=== PATIENT | male | born 1955 | race Hispanic/Latino ===

== ENCOUNTER 2024-08-11 23:56 | Inpatient (IN) | payer MEDICARE, OTHER, SELFPAY ==
--- NOTE | ~2024-08-11 | MR_ITS ---
EXAMINATION: MR brain/brain stem wo con DATE: 08/14/2024 09:00 INDICATION: Ischemic stroke TECHNIQUE: Magnetic resonance imaging (MRI) of the brain and brainstem was performed without intraven ous contrast. Sequences included sagittal and axial T1-weighted SE, axial diffusion-weighted FS SE, a xial 3D SWAN, axial T2-weighted FLAIR, and axial T2-weighted FSE. Postcontrast axial and coronal T1-w eighted SE was obtained. Apparent diffusion coefficient (ADC) maps were created. COMPARISON: Head CT and CT angiogram dated 08/13/2024 FINDINGS: Moderate-sized region of restricted diffusion and increased T2 signal or spine to the region of cytot oxic edema on prior CT consistent with acute infarct. Additional smaller region also with restricted diffusion, increased T2 signal in satisfactory beam on prior CT in the left parietal lobe consistent with a second acute infarct. No intracranial hemorrhage or abnormal intracranial mass lesion. There a re scattered areas of nonspecific increased T2-weighted signal intensity in the cerebral white matter , predominantly involving the deep and periventricular white matter. There are no intraparenchymal si gnal abnormalities seen on the other pulse sequences. The ventricles are symmetric and normal in size . There are no abnormal extra-axial fluid collections. Flow voids are seen in the cerebral arteries o n the T2-weighted sequences consistent with their expected patency. Mild mucoperiosteal thickening th e bilateral ethmoid sinuses. Small bilateral mastoid effusions. Visualized orbits and soft tissues ar e unremarkable. IMPRESSION: 1. Acute infarcts in the left frontal and left parietal lobes. 2. Additional mild scattered nonspecific white matter T2 hyperintensity consistent with chronic small vessel ischemic disease. Reviewed, dictated and finalized at location B. CAL INSURANCE CLERK IMPRESSION: 1. Acute infarcts in the left frontal and left parietal lobes. 2. Additional mild scattered nonspecific white matter T2 hyperintensity consist ent with chronic small vessel ischemic disease.
--- NOTE | ~2024-08-11 | CT_ITS ---
EXAMINATION: CT brain wo con DATE: 08/13/2024 14:29 INDICATION: Altered mental status. TECHNIQUE: Computed tomography (CT) of the head was performed without intravenous contrast. The mA wa s adjusted according to patient size. Iterative reconstruction technique was employed. The dose-lengt h product was 605.33 mGy-cm. COMPARISON: Head CT 08/12/2024 FINDINGS: There are acute infarcts in the left frontal and parietal lobes. There are scattered areas of low attenuation in the cerebral white matter. There is no intracranial hemorrhage or abnormal mass lesion. The ventricles are normal in size. There is mild mucosal thickening in the paranasal sinuses . The mastoid air cells are normal. The orbits are normal. IMPRESSION: 1. Acute infarcts in the left frontal and parietal lobes, not visible on 08/12/2024. 2. Moderate nonspecific cerebral white matter disease, which likely represents chronic small vessel i schemic disease. Reviewed, dictated and finalized at location A. MANAGEMENT INTERNSHIP IMPRESSION: 1. Acute infarcts in the left frontal and parietal lobes, not visible on 025. 2. Moderate nonspecific cerebral white matter disease, which likely represents chronic small vessel ischemic disease.
--- NOTE | ~2024-08-11 | CT_ITS ---
Non-contrast Head CT History: Headache Technique: Axial non-contrast imaging of the brain was performed. Dose reduction technique was used on this scan by utilizing automated exposure control and iterative reconstruction technique. The dose -length product (DLP) was 756.67 mGy-cm. Findings: There is no evidence of intracranial hemorrhage, mass lesion, or acute infarct. Brain par enchyma appears normal. The ventricles and subarachnoid spaces are normal in size. The calvarium ap pears normal. The visualized paranasal sinuses and mastoid air cells are clear. Impression: No significant abnormality seen. Reviewed, dictated and finalized at location . ASS MANAGER Impression: No significant abnormality seen.
--- NOTE | ~2024-08-11 | XR_ITS ---
Portable chest x-ray Comparison: 12/26/2015 Clinical History: Chest pain Findings: Lungs are clear, without focal consolidation or pleural effusion. Cardiomediastinal silho uette is prominent. Bones and soft tissues are unremarkable. Impression: Clear lungs. Probable cardiomegaly. Reviewed, dictated and finalized at location . R PLANT ASSISTANT Impression: Clear lungs. Probable cardiomegaly.
--- NOTE | ~2024-08-11 | CT_ITS ---
EXAMINATION: CTA brain carotid DATE: 08/13/2024 16:20 INDICATION: Cerebrovascular accident. TECHNIQUE: Computed tomographic angiography (CTA) of the head was performed with 100 mL Omnipaque-350 intravenous contrast. CTA of the neck was performed with intravenous contrast. Automated exposure co ntrol and iterative reconstruction technique were employed. The dose-length product was 1242.85 mGy-c m. Maximum intensity projection and volume rendered 3D-reconstructions were created by the technologi st on a separate workstation. COMPARISON: head CT 08/13/2024 FINDINGS: HEAD CTA: There are acute infarcts in the left frontal and parietal lobes. There are scattered areas of low attenuation in the cerebral white matter. There is no intracranial hemorrhage or abnormal mass lesion. The ventricles are normal in size. There is mild mucosal thickening in the paranasal sinuses . The mastoid air cells are normal. The orbits are normal. The vertebral arteries are codominant. The re is no significant stenosis of basilar artery or the posterior cerebral arteries. There is no signi ficant stenosis of the intracranial internal carotid arteries or anterior cerebral arteries. There is total occlusion of two left M2 middle cerebral artery branches. Anterior communicating artery is nor mal. The posterior communicating arteries are normal. There is no aneurysm. NECK CTA: Cardiomegaly is noted. There are no pathologically enlarged lymph nodes. There is no signif icant stenosis of the vertebral arteries. There is plaque in the proximal internal carotid arteries. There is 0% stenosis of the proximal right internal carotid artery relative to normal distal artery l umen diameter (NASCET criteria). There is 0% stenosis of the proximal left internal carotid artery re lative to normal distal artery lumen diameter. There is severe cervical spondylosis. There is extensi ve dental disease. IMPRESSION: 1. Acute infarcts in the left frontal and parietal lobes. 2. Moderate nonspecific cerebral white matter disease, which likely represents chronic small vessel i schemic disease. 3. 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 4. 0% stenosis of the proximal internal carotid arteries relative to normal distal artery lumen diame ters (NASCET criteria). Reviewed, dictated and finalized at location A. N MILLER HELPER IMPRESSION: 1. Acute infarcts in the left frontal and parietal lobes. 2. Moderate nonspecific cerebral white matter disease, which likely represents chronic small vessel ischemic disease. 3. 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 4. 0% stenosis of the proximal internal carotid arteries relative to normal dis ruthy artery lumen diameters (NASCET criteria).
--- NOTE | ~2024-08-11 | CT_ITS ---
Clinical Indication: Chest pain, epigastric pain CT Scan of the Chest, Abdomen, and Pelvis with Contrast: Technique: Contiguous sections were acquired throughout the chest, abdomen, and pelvis after intraven ous administration of 100 cc of Omnipaque 350. Dose reduction technique was used on this scan by uti lizing automated exposure control and iterative reconstruction technique. The dose-length product (DL P) was 1906.80 mGy-cm. Findings: There is no evidence of any significant mediastinal, hilar or axillary lymphadenopathy. The mediastin al soft tissues appear normal. No aortic aneurysm or dissection. No pulmonary embolus. There is no evidence of pleural or pericardial effusion. 7 mm right middle lobe nodule present (axial image 60). 8 mm right lower lobe pulmonary nodule presen t (axial image 65). 3 mm left lower lobe pulmonary nodule present (axial image 85). The liver, spleen, pancreas, gallbladder, adrenals and kidneys are within normal limits. No evidence of aortic aneurysm. No lymphadenopathy. No bowel obstruction or bowel wall thickening. There is no evidence to suggest acute appendicitis. Urinary bladder is unremarkable. No pelvic mass seen. No ascites. Impression: No acute abnormalities seen. 7 mm and 8 mm right lung pulmonary nodules, as above. According to Fleischner Society criteria, for a low-risk patient, follow-up CT scan in 3-6 months recommended, then consider additional 18-[address] A high-risk patients, follow-up CT scans at both 3-6 months and 18-24 months are recommended. No significant abnormality in the abdomen or pelvis. Reviewed, dictated and finalized at [facility]. NG CUTTER Impression: No acute abnormalities seen. 7 mm and 8 mm right lung pulmonary nodules, as above. According to Fleischner S ociety criteria, for a low-risk patient, follow-up CT scan in 3-6 months recomm ended, then consider additional 18-[address] A high-risk patients, follow-up CT scans at both 3-6 months and 18-24 months are recommended. No significant abnormality in the abdomen or pelvis.
[2024-08-12] VITALS (54 sets, daily range): BP systolic 129–159; BP diastolic 74–125; PULSE 46–89; RESP 10–23; TEMP 36.4–36.7; O2SAT 79–100; BMI 31.2
--- NOTE | 2024-08-12 00:09 | ECG_ITS ---
Test Date: 2024-08-12 01:44:49 Measurements Intervals [place] Rate: 73 P: 62 OK: 189 QRS: 4 QRSD: 134 T: 61 QT: 426 QTc: 472 Interpretive Statements SINUS RHYTHM WITH FREQUENT VENTRICULAR PREMATURE COMPLEXES INTRAVENTRICULAR CONDUCTION DELAY [130+ ms QRS DURATION] LEFT VENTRICULAR HYPERTROPHY AND ST-T CHANGE [VOLTAGE CRITERIA PLUS ST/T ABNORMALITY] Compared to ECG 08/12/2024 00:05:32 No significant changes Electronically Signed On 08-12-2024 22:11:23 POWERHOUSE MECHANIC by Ariel Lagunas M.D.
--- NOTE | 2024-08-12 00:26 | ED.CHESTPAIN ---
HPI - Chest Pain General Chief Complaint: Chest Pain Stated Complaint: CP RADIATING TO LEFT NECK Time Seen by Provider: 08/12/24 00:08 History of Present Illness HPI narrative: 69-year-old male with a past medical history including congestive heart failure with reduced ejection fraction, hypertension, previous stroke, seizure disorder. He has also had history of CO with coronary artery disease on multiple cardiac catheterizations but no history of stent or balloon angioplasty to his knowledge. Patient states his last catheterization was in February after had a syncopal episode with concern for MRI. Was found to have 70% lad occlusion and several other diseased vessels but no interventions were conducted. He is on aspirin, Plavix, nitro. Patient presents to the emergency room today with sudden onset chest pain for epigastric pain and pain radiating towards his neck that he describes as a throbbing pulsatile sensation. Was sudden in onset without any exertion. No associated dyspnea. No nausea or vomiting, no diaphoresis, lower abdominal pain or neurological complaints. Denies any trauma or injuries. Patient was incarcerated in prison while his symptoms started. Denies any substance use but is an active smoker. Related Data Allergies Allergy/AdvReac Type Severity Reaction Status Date / Time latex Allergy Mild Hives Verified 08/12/24 05:32 Review of Systems Review of Systems: As reviewed above in HPI [facility] Past Medical History Medical History (Updated 08/12/24 @ 08:16 by Chevy Leger MD) Heart failure with reduced ejection fraction Chronic obstructive pulmonary disease Hypertension Tobacco dependence Cerebrovascular accident Coronary artery disease Family History Family History (Updated 08/12/24 @ 05:42 by Sherice Castellanos RN) Father Acute myocardial infarction Social History Social History Smoking packs per day: 0.25 Smoking cigarettes per day: 5.0 Years smoked: 40 Smoking pack-years: 10.00 Smoking status: Current every day smoker Tobacco type: cigarettes Alcohol intake: never Substance use: never Do You Feel Safe in your Home?: Yes Lack of Transportation: No Lack of Food: Never True Current Housing: I Have Housing Concerned About Future Housing: No Difficulty Paying Gas/Electric Bills: No Difficulty Paying for Meds: No Currently Unemployed: No Education: High School Diploma/GED Difficulty w/ Childcare or Family Care: No Spiritual care concerns: No Exam Narrative: GENERAL: [Well-appearing, well-nourished, and in no acute distress.] HEAD: [Normocephalic, atraumatic.] EYES: [PERRLA and EOMI.] ENT: Nares clear, no rhinorrhea or epistaxis. Mucous membranes moist. NECK: Supple. CHEST: [Clear to auscultation. No respiratory distress.] HEART: [Regular rate and rhythm]. No murmur heard. [Normal peripheral pulses.] ABDOMEN: [Soft, nondistended], [nontender], [No rigidity or guarding] EXTREMITIES: Normal range of motion. [No edema.] SKIN: Warm, dry, no rash. NEURO: [No focal deficits]. Alert and oriented [x3.] PSYCH: [Normal mood and affect.] Course Vital Signs Vital signs: Vital Signs Pulse Rate 82 08/12/24 00:02 Respiratory Rate 14 08/12/24 00:02 Blood Pressure 143/109 H 08/12/24 00:02 Pulse Oximetry 97 08/12/24 00:02 Oxygen Delivery Room Air 08/12/24 00:02 Temperature 36.7 C 08/12/24 06:07 Pulse Rate 64 08/12/24 06:07 Respiratory Rate 18 08/12/24 06:07 Blood Pressure 139/103 H 08/12/24 06:07 Pulse Oximetry 100 08/12/24 06:07 Oxygen Delivery Room Air 08/12/24 05:40 MDM - Chest Pain MDM Narrative Medical decision making narrative: 69-year-old pleasant male with complex history including CHF with reduced ejection fraction, hypertension, stroke, seizure disorder, previous CO with 70% lad occlusion on recent cardiac catheterization in February of last year. Presents today with sudden onset chest pain, epigastric pain and pain radiating towards his neck that he describes as a throbbing pulsatile sensation as sharp in quality. Denies any injuries or any associated neurological symptoms. Denies any shortness a breath. No tachypnea, hypoxia, tachycardia. He was noted to be profoundly hypertensive 3 EMS in the 200 range systolic and received 2 doses of sublingual nitro and aspirin. Presently he has better blood pressure with a 154/105. Strong symmetric pulses in all extremities. No increased work of breathing or asymmetric breath sounds. Consideration including at this time include unstable angina, ACS, acute aortic syndrome. Less likely pneumothorax or gastritis or other intra-abdominal process. Given his age and risk factors cardiac workup was ordered including serial troponins, D-dimer and EKG. CT angiography of his chest abdomen pelvis was obtained. He was given morphine for analgesia and evaluated on a panel monitor. I went and re-evaluated the patient who states he feels acutely worse previous stealing the morphine. He started feeling tearful, developing vague paresthesias in his right leg near the big toe and behind both sides of his head and neck. He was evaluated and had no heart neurological findings such as weakness or anesthesia of the extremities. No ataxia, answering all questions appropriately. He had subjective burning quality pins and needles type pain in his big toe on the right side and behind both sides was head and neck. CT of the head was ordered prior to his angiography study. Patient felt better after morphine and Zofran. Patient's laboratory studies show a elevated troponin with revising delta troponin. EKG without any acute ischemic evidence but there is significant amounts of ectopy. There is some intraventricular conduction delay but no ST segment elevations or depressions. Patient's blood pressure slightly hypertensive but not severe range. Repeat vital signs are reassuring. Given his NSTEMI, rising troponin and chest pain that is improving with morphine I believe he would benefit from admission to the hospital for Cardiology evaluation on inpatient basis. He was started on heparin drip at this time an echocardiogram will be ordered. Serial EKGs and troponins will be obtained and patient will go to the intermediate care unit. Spoke to the hospitalist currently being covered by the midlevel provider Lucy. She agreed to accept the patient to the hospital to the intermediate care unit at this time with Cardiology on consult. Patient comfortable with plan of care for admission. Medical Records Data Attestation: I reviewed the patient's medical records. Lab Data Attestation: I reviewed the patient's lab results. 08/12/24 06:28 08/12/24 06:28 Labs: Lab Results 08/12/24 08/12/24 08/12/24 Range/Units 00:16 01:25 03:08 WBC 11.7 H (4.5-10.0) K/mm3 RBC 4.98 (4.6-6.20) M/mm3 Hgb 14.1 (14.0-18.0) g/dL Hct 42.1 (42.0-52.0) % MCV 84.5 (80-100) fl MCH 28.3 (26-34) pg MCHC 33.5 (32-36) g/dl RDW 14.3 (11.5-14.5) % Plt Count 241 (150-375) k/mm3 MPV 12.0 H (7.4-10.4) fl Immature Gran % (Auto) 0.3 (0-0.5) % Neut % (Auto) 78.0 H (45.5-73.1) % Lymph % (Auto) 13.1 L (18.3-44.2) % [place] % (Auto) 5.8 (2.6-8.5) % Eos % (Auto) 1.7 (0-4.4) % Baso % (Auto) 1.1 (0.2-1.2) % Lymph # (Auto) 1.53 (0.9-3.2) K/mm3 [place] # (Auto) 0.7 H (0.1-0.6) K/mm3 Eos # (Auto) 0.2 (0-0.3) K/mm3 Baso # (Auto) 0.1 (0.0-0.1) K/mm3 Abs Immat Gran (auto) 0.04 H (0.00-0.031) K/mm3 Absolute Neuts (auto) 9.1 H (1.3-6.7) K/mm3 Absolute Nucleated RBC 0.000 (0.0-0.012) K/mm3 Nucleated RBC % 0.0 (0.0-0.2) % PT 15.1 H (11.1-14.7) Seconds INR 1.2 APTT 33.1 (22.3-36.8) Seconds D-Dimer 0.67 H (<0.48) ug/mL Sodium 141 (137-145) mmol/L Potassium 3.5 (3.4-5.0) mmol/L Chloride 105 (98-107) mmol/L Carbon Dioxide 26 (22-30) mmol/L Anion Gap 10 (4-12) mmol/L BUN 15 (9-20) mg/dL Creatinine 0.98 (0.7-1.3) mg/dL Estim Creat Clear Calc 81 ml/min Estimated GFR > 60 (59 - ) Glucose 122 H (65-110) mg/dL Calcium 8.4 (8.4-10.2) mg/dL Total Bilirubin 0.8 (0.2-1.3) mg/dL AST 26 (17-59) U/L ALT 16 (6-50) U/L Alkaline Phosphatase 123 (38-126) U/L Troponin I 0.055 H* 0.069 H* D (0.000-0.034) ng/mL NT-Pro-B Natriuret Pep 3570 H (19.9-100) pg/mL Total Protein 7.0 (6.3-8.2) g/dL Albumin 4.1 (3.5-5.1) g/dL Lipase 32 (23-300) U/L Urine Opiates Screen Positive A (Negative) Urine Methadone Screen Negative (Negative) Ur Barbiturates Screen Negative (Negative) Ur Phencyclidine Scrn Negative (Negative) Ur Amphetamine Screen Negative (Negative) U Benzodiazepines Scrn Negative (Negative) Urine Cocaine Screen Negative (Negative) U Cannabinoids Screen Negative (Negative) Imaging Data Attestation: I personally reviewed and interpreted this imaging study as follows: Radiologist's impression: [facility]: CT of the head shows no acute intracranial abnormalities. CT of the chest and abdomen pelvis shows no pulmonary embolism, no aortic dissection or aneurysm, no acute pulmonary parenchymal abnormalities. No acute abnormality in the abdomen or pelvis Critical Care Time Critical Care Time Critical Care Time: Yes Total Critical Care Time: 35 Discharge Plan Discharge Clinical Impression: Acute non-ST elevation myocardial infarction (NSTEMI), Coronary artery disease, Chest pain Patient Disposition: Still a Patient Condition: Stable
[2024-08-12 00:31] LABS: Basophils Absolute Auto 0.1 K/mm3 (0.0-0.1); Basophils Percent Auto 1.1 % (0.2-1.2); Eosinophils Absolute Auto 0.2 K/mm3 (0-0.3); Eosinophils Percent Auto 1.7 % (0-4.4); Hematocrit 42.1 % (42.0-52.0); Hemoglobin 14.1 g/dL (14.0-18.0); Immature Granulocyte Absolute 0.04 K/mm3 (0.00-0.031); Immature Granulocyte Percent A 0.3 % (0-0.5); Lymphocytes Absolute Auto 1.53 K/mm3 (0.9-3.2); Lymphocytes Percent Auto 13.1 % (18.3-44.2); Mean Corpuscular HGB Conc 33.5 g/dl (32-36); Mean Corpuscular Hemoglobin 28.3 pg (26-34); Mean Corpuscular Volume 84.5 fl (80-100); Monocytes Absolute Auto 0.7 K/mm3 (0.1-0.6); Monocytes Percent Auto 5.8 % (2.6-8.5); Neutrophils Absolute Auto 9.1 K/mm3 (1.3-6.7); Platelet Count Result 241 k/mm3 (150-375); Red Blood Count 4.98 M/mm3 (4.6-6.20); Red Cell Distribution Width 14.3 % (11.5-14.5); White Blood Count 11.7 K/mm3 (4.5-10.0)
[2024-08-12 00:43] LABS: INR 1.2; Prothrombin Time 15.1 Seconds (11.1-14.7)
[2024-08-12 00:44] LABS: Partial Thromboplastin Time 33.1 Seconds (22.3-36.8)
[2024-08-12 00:46] LABS: Alanine Aminotransferase 16 U/L (6-50); Albumin Level 4.1 g/dL (3.5-5.1); Alkaline Phosphatase 123 U/L (38-126); Anion Gap 10 mmol/L (4-12); Aspartate Amino Transferase 26 U/L (17-59); Bilirubin,Total 0.8 mg/dL (0.2-1.3); Blood Urea Nitrogen 15 mg/dL (9-20); Calcium 8.4 mg/dL (8.4-10.2); Carbon Dioxide 26 mmol/L (22-30); Chloride 105 mmol/L (98-107); Estimated CRCL calculation 81 ml/min; Estimated Glomerular Filt Rate > 60; Glucose 122 mg/dL (65-110); Lipase 32 U/L (23-300); Potassium 3.5 mmol/L (3.4-5.0); Sodium 141 mmol/L (137-145)
[2024-08-12 00:47] LABS: D Dimer 0.67 ug/mL (<0.48)
[2024-08-12 01:01] LABS: NT Pro B Type Natriuretic Pept 3570 pg/mL (19.9-100); Troponin I 0.055 ng/mL (0.000-0.034)
--- NOTE | 2024-08-12 01:42 | ECG_ITS ---
Test Date: 2024-08-12 00:05:32 Measurements Intervals [place] Rate: 91 P: 55 CO: 179 QRS: 6 QRSD: 133 T: 63 QT: 408 QTc: 504 Interpretive Statements SINUS RHYTHM WITH FREQUENT VENTRICULAR PREMATURE COMPLEXES INTRAVENTRICULAR CONDUCTION DELAY [130+ ms QRS DURATION] LEFT VENTRICULAR HYPERTROPHY AND ST-T CHANGE [VOLTAGE CRITERIA PLUS ST/T ABNORMALITY] No previous ECG available for comparison Electronically Signed On 08-12-2024 22:11:42 GRAPHITE DISK ASSEMBLER by Ariel Lagunas M.D.
[2024-08-12 01:52] LABS: Amphetamine Screen Urine Negative (Negative); Barbiturate Screen Urine Negative (Negative); Benzodiazepines Screen Urine Negative (Negative); Cannabinoid Screen Urine Negative (Negative); Cocaine Screen Urine Negative (Negative); Methadone Screen Urine Negative (Negative); Opiate Screen Urine Positive (Negative); Phencyclidine Screen Urine Negative (Negative)
[2024-08-12] MEDS: ONDANSETRON INJ 4 MG/2 ML VIAL IV PUSH (03:02)
[2024-08-12] MEDS: MORPHINE SULFATE (*CRX) 4 MG/ML INJ 6 MG IV PUSH (03:05)
[2024-08-12 03:44] LABS: Troponin I 0.069 ng/mL (0.000-0.034)
[2024-08-12] MEDS: HEPARIN SOD/D5W 100 UNITS/ML 25,000 UNITS/250 ML BAG 14 UNITS IV CONT (04:45)
[2024-08-12] MEDS: HEPARIN SODIUM 5,000 UNITS/ML VIAL 4000 UNITS IV PUSH (04:51)
--- NOTE | 2024-08-12 05:20 | P.HP_ITS ---
H&P: HPI History of Present Illness Date/Time: 08/12/24 05:20 Chief Complaint: Chest pain and shortness of breath. Narrative: This is a 69-year-old male smoker with history of stroke, seizures, coronary artery disease, hypertension, heart failure with reduced ejection fraction, and chronic obstructive pulmonary disease presented to the emergency department via EMS for evaluation of chest pain and shortness of breath. The patient provides the following history. He is a patient at the [facility] and has had several cardiac catheterizations for myocardial infarctions though no history of intervention. His most recent catheterization was in February 2024 following a syncopal episode and he was reportedly found to have 70% LAD occlusion and several other disease vessels which were treated medically. He has been doing well since that time and is on dual anti-platelet therapy. Last evening he was out with his when he was pulled over by the police for a moving violation. They discovered a 23-year-old warrant and took him to prison where they were to keep him until Tuesday. Not long prior to arrival he was lying in bed when he developed sudden onset of left anterior chest pain which he describes as a severe charley horse associated with shortness of breath. The pain radiated to the left neck and jaw. It is not reproducible on palpation of the chest wall and he denies GI symptoms. He was administered 2 sprays of nitroglycerin and aspirin 324 mg in route with some improvement. He denies syncope, near syncope, cold and flu symptoms, pleuritic pain, paroxysmal nocturnal dyspnea, edema, calf pain, nausea, v omiting, and sweats. In the ED: Blood pressure was 143/109 on arrival. Labs were significant for WBC count of 11.7, D-dimer 0.67, glucose 122, troponin 0.055, proBNP 3570. CT of the chest, abdomen, and pelvis was without acute findings but did show 7 mm and 8 mm right lung pulmonary nodules. He was started on a heparin drip and is being admitted in this setting for close monitoring and Cardiology consultation. Review of Systems Review of Systems: 12 systems were reviewed. The patient re ports a 70 lb weight loss over the past 1 year which was unintentional. He gets night sweats. 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 [facility] Past Medical History Medical History (Updated 08/12/24 @ 19:44 by Lucy Jacobs PA-C) Heart failure with reduced ejection fraction Chronic obstructive pulmonary disease Hypertension Tobacco dependence Cerebrovascular accident left sided weakness Coronary artery disease Surgical History Surgical History (Updated 08/12/24 @ 19:44 by Lucy Jacobs PA-C) History of cardiac catheterization Family History Family History Father Acute myocardial infarction Social History Social History (Updated 08/12/24 @ 19:45 by Lucy Jacobs PA-C) Social History: Surrogate medical decision maker: Thaddeus Burns, significant other. Code status: Full code. Smoking packs per day: 0.25 Smoking cigarettes per day: 5.0 Years smoked: 40 Smoking pack-years: 10.00 Smoking status: Current every day smoker Tobacco type: cigarettes Alcohol intake: never Substance use: never Do You Feel Safe in your Home?: Yes Lack of Transportation: No Lack of Food: Never True Current Housing: I Have Housing Concerned About Future Housing: No Difficulty Paying Gas/Electric Bills: No Difficulty Paying for Meds: No Currently Unemployed: No Education: High School Diploma/GED Difficulty w/ Childcare or Family Care: No Spiritual care concerns: No Meds Home Medications and Allergies Allergies Allergy/AdvReac Type Severity Reaction Status Date / Time latex Allergy Mild Hives Verified 08/12/24 05:32 Vital Signs Vital Signs - 24 hr 08/12/24 00:02 08/12/24 00:04 08/12/24 00:09 Pulse Rate 82 86 89 Respiratory Rate 14 22 H 17 Blood Pressure 143/109 H 143/109 H Pulse Oximetry 97 97 97 Oxygen Delivery Room Air 08/12/24 00:15 08/12/24 00:22 08/12/24 00:24 Pulse Rate 88 86 85 Respiratory Rate 18 19 Blood Pressure 136/101 H Pulse Oximetry 97 97 Oxygen Delivery 08/12/24 00:24 08/12/24 00:25 08/12/24 00:26 Pulse Rate 83 86 Respiratory Rate 22 H 17 Blood Pressure 154/105 H Pulse Oximetry 97 97 97 Oxygen Delivery Room Air 08/12/24 00:31 08/12/24 00:32 08/12/24 00:45 Pulse Rate 78 81 88 Respiratory Rate 16 18 20 Blood Pressure 132/100 H Pulse Oximetry 98 98 Oxygen Delivery 08/12/24 02:07 08/12/24 02:15 08/12/24 02:20 Pulse Rate 61 55 L 65 Respiratory Rate 16 16 20 Blood Pressure 145/111 H Pulse Oximetry 98 98 98 Oxygen Delivery 08/12/24 02:30 08/12/24 02:45 08/12/24 03:00 Pulse Rate 59 L 61 57 L Respiratory Rate 17 19 16 Blood Pressure Pulse Oximetry 98 96 98 Oxygen Delivery 08/12/24 03:29 08/12/24 03:38 08/12/24 03:45 Pulse Rate 53 L 54 L 63 Respiratory Rate 17 19 21 H Blood Pressure Pulse Oximetry 96 94 94 Oxygen Delivery 08/12/24 04:00 08/12/24 04:01 08/12/24 04:15 Pulse Rate 67 57 L 51 L Respiratory Rate 15 19 17 Blood Pressure 148/125 H Pulse Oximetry 92 98 96 Oxygen Delivery 08/12/24 04:30 08/12/24 04:32 Pulse Rate 73 66 Respiratory Rate 21 H 23 H Blood Pressure Pulse Oximetry 96 Oxygen Delivery Exam Narrative: General: Well-developed, nontoxic-appearing male in the semi-Flores position in bed. Weight: 101.6 kg. BMI: 31.2. HEENT: Normocephalic, atraumatic. PERRL, EOMI. Sclera anicteric. Oral mucosa moist. Oropharynx clear. Neck: Supple. Respiratory: Lungs are clear to auscultation bilaterally. Cardiovascular: Regular rate and rhythm with S1-S2. Chest: No tenderness to palpation over the chest wall. Gastrointestinal: Abdomen is soft, nontender, and nondistended with positive bowel sounds. Skin: Warm and dry. Scattered maculopapular rash which is pleuritic. Recent biopsy site over the left chest wall. Extremities: No cyanosis, clubbing, or edema. Radial and pedal pulses intact. Neurological: Alert. Cranial nerves 2-12 are grossly intact. No gross focal deficits to casual conversation. Psychiatric: Pleasant and cooperative with normal mood and affect. Judgment and insight intact. H&P: Results Labs Labs: Short CBC 08/12/24 Range/Units 00:16 WBC 11.7 H (4.5-10.0) K/mm3 Hgb 14.1 (14.0-18.0) g/dL Hct 42.1 (42.0-52.0) % Plt Count 241 (150-375) k/mm3 BMP 08/12/24 00:16 Sodium 141 Potassium 3.5 Chloride 105 Carbon Dioxide 26 BUN 15 Creatinine 0.98 Glucose 122 H Calcium 8.4 Cardiac Enzymes 08/12/24 08/12/24 Range/Units 00:16 03:08 Troponin I 0.055 H* 0.069 H* D (0.000-0.034) ng/mL Liver Function 08/12/24 Range/Units 00:16 Total Bilirubin 0.8 (0.2-1.3) mg/dL AST 26 (17-59) U/L ALT 16 (6-50) U/L Alkaline Phosphatase 123 (38-126) U/L Albumin 4.1 (3.5-5.1) g/dL Impressions Chest/Abdomen/Pelvis CTA 08/12/24 06:30 Impression: No acute abnormalities seen. 7 mm and 8 mm right lung pulmonary nodules, as above. According to Fleischner Society criteria, for a low-risk patient, follow-up CT scan in 3-6 months recommended, then consider additional 18-[address] A high-risk patients, follow-up CT scans at both 3-6 months and 18-24 months are recommended. No significant abnormality in the abdomen or pelvis. Head CT 08/12/24 06:43 Impression: No significant abnormality seen. Assessment and Plan Assessment and plan (1) Chest pain: Code(s): R07.9 - Chest pain, unspecified Status: Acute (2) Elevated troponin: Code(s): R79.89 - Other specified abnormal findings of blood chemistry Status: Acute (3) Pulmonary nodule: Code(s): R91.1 - Solitary pulmonary nodule Status: Acute (4) Rash: Code(s): R21 - Rash and other nonspecific skin eruption Status: Acute Plan The patient presented to the emergency department for evaluation of chest pain and shortness of breath as detailed in HPI. Labs, imaging, EKG, and all reports were personally reviewed. Somewhat atypical for cardiac pain however is troponins are elevated and they will be trended to peak. Given his known coronary artery disease, he was started on a heparin drip and will be NPO for possible cardiac catheterization. Records requested from the [facility] for review. Cardiology has been consulted and their input is appreciated. Regarding the pulmonary nodule seen on imaging, this will need close follow-up at the [facility]. vital signs were reviewed and they are stable. His home medications will be reviewed and resumed as appropriate. Findings and treatment plan were discussed with the patient. Questions were solicited and answered to satisfaction. The patient's medical management will be taken over by the hospitalist team in a.m. Quality VTE Prophylaxis VTE prophylaxis: pharmacologic ordered (on heparin drip) Hospitalist [facility] Advance Care Plan I have confirmed that the patient's Advanced Care Plan is present, code status is documented, or surrogate decision maker is listed in patient medical record.: Yes Medication Reconciliation I have utilized all available resources to obtain, update and review the patients current medications (includes all prescriptions, OTC, herbals, cannabis, and nutritional supplements).: Yes
--- NOTE | 2024-08-12 05:29 | ADMGEN ---
This patient, Isaias Qureshi Jr., was admitted to IMU Room 231-01. Patient/family oriented to hospital policies and general routines including ID bracelet, bed and alarms, visiting hours, pain management, procedures, bathroom and other care routines, personal items, smoking policy, room service/diet, and visiting hours. Report received from Nafisa CARRERA Information on how to activate the Rapid Response Team has been discussed. Patient/Family are encouraged to report perceived risks to care and to ask questions if they do not understand what they are told or what they should do.
--- NOTE | 2024-08-12 06:27 | PC.NURSE ---
Pt states he does not know all medications or dosages. Attempted to call [facility] to obtain [facility] records[facility]. Patient states will bring medication list up this morning.
[2024-08-12 06:34] LABS: Basophils Absolute Auto 0.1 K/mm3 (0.0-0.1); Basophils Percent Auto 1.4 % (0.2-1.2); Eosinophils Absolute Auto 0.4 K/mm3 (0-0.3); Eosinophils Percent Auto 4.5 % (0-4.4); Hematocrit 43.4 % (42.0-52.0); Hemoglobin 13.9 g/dL (14.0-18.0); Immature Granulocyte Absolute 0.02 K/mm3 (0.00-0.031); Immature Granulocyte Percent A 0.2 % (0-0.5); Lymphocytes Absolute Auto 1.91 K/mm3 (0.9-3.2); Lymphocytes Percent Auto 22.4 % (18.3-44.2); Mean Corpuscular Hemoglobin 28.1 pg (26-34); Mean Corpuscular Volume 87.7 fl (80-100); Mean Platelet Volume 11.7 fl (7.4-10.4); Monocytes Absolute Auto 0.6 K/mm3 (0.1-0.6); Monocytes Percent Auto 7.4 % (2.6-8.5); Neutrophils Absolute Auto 5.5 K/mm3 (1.3-6.7); Neutrophils Percent Auto 64.1 % (45.5-73.1); Platelet Count Result 209 k/mm3 (150-375); Red Blood Count 4.95 M/mm3 (4.6-6.20); Red Cell Distribution Width 14.5 % (11.5-14.5); White Blood Count 8.5 K/mm3 (4.5-10.0)
[2024-08-12 06:44] LABS: Alanine Aminotransferase 15 U/L (6-50); Alkaline Phosphatase 104 U/L (38-126); Anion Gap 6 mmol/L (4-12); Aspartate Amino Transferase 27 U/L (17-59); Bilirubin,Total 1.1 mg/dL (0.2-1.3); Blood Urea Nitrogen 16 mg/dL (9-20); Calcium 8.6 mg/dL (8.4-10.2); Carbon Dioxide 31 mmol/L (22-30); Chloride 104 mmol/L (98-107); Estimated CRCL calculation 74 ml/min; Estimated Glomerular Filt Rate > 60; Glucose 122 mg/dL (65-110); Magnesium 2.2 mg/dL (1.6-2.3); Potassium 4.6 mmol/L (3.4-5.0); Sodium 141 mmol/L (137-145)
[2024-08-12 06:51] LABS: INR 1.2; Prothrombin Time 15.8 Seconds (11.1-14.7)
[2024-08-12 06:52] LABS: Partial Thromboplastin Time 56.2 Seconds (22.3-36.8)
[2024-08-12] MEDS: diphenhydrAMINE HCl INJ 50 MG/ML VIAL 25 MG IV PUSH (07:05)
[2024-08-12] MEDS: MORPHINE SULFATE (*CRX) 2 MG/ML INJ 4 MG IV PUSH (07:06)
[2024-08-12 07:14] LABS: Troponin I 0.087 ng/mL (0.000-0.034)
--- NOTE | 2024-08-12 08:11 | ECG_ITS ---
Test Date: 2024-08-12 08:36:12 Measurements Intervals [place] Rate: 52 P: 56 [place]: 209 QRS: 44 QRSD: 133 T: 146 QT: 507 QTc: 475 Interpretive Statements SINUS BRADYCARDIA WITH FREQUENT VENTRICULAR PREMATURE COMPLEXES INTRAVENTRICULAR CONDUCTION DELAY [130+ ms QRS DURATION] LEFT VENTRICULAR HYPERTROPHY anterior ischemia Compared to ECG 08/12/2024 01:44:49 Sinus rhythm no longer present ST (T wave) deviation still present Electronically Signed On 08-12-2024 22:07:48 [employer] by Ariel Lagunas M.D.
[2024-08-12] MEDS: NITROGLYCERIN SL 0.4 MG TABLET SUBLINGUAL ×3 (08:38→12:32)
--- NOTE | 2024-08-12 08:46 | PC.NURSE ---
Reports 7/10 chest pain that feels achy to left side with intermittent bursts of sharp radiating pain to left neck and left arm and SOB. Skin warm and dry. BP 141/89, O298% RA. PRN EKG ordered. Reviewed information with Dr. Brennan. New orders for SL nitro. Nitro given. Reports pain is currently 4/10.
--- NOTE | 2024-08-12 08:49 | PC.NURSE ---
Refuses second dose of SL nitro. Pt is resting in bed snoring.
--- NOTE | 2024-08-12 08:56 | P.PNIM_ITS ---
Progress Note: A&P Assessment and Plan (1) Chest pain: Code(s): R07.9 - Chest pain, unspecified Status: Acute Assessment and Plan: * Somewhat atypical for angina however he has known coronary disease and elevate d troponin and T-wave inversions. * Continue heparin, aspirin, Plavix. * Resume home medications when list is available later this morning. * Cardiology consultation pending. * Records from [facility] pending. (2) Elevated troponin: Code(s): R79.89 - Other specified abnormal findings of blood chemistry Status: Acute Assessment and Plan: * Troponin pattern not typical for acute coronary syndrome. * May be related to underlying congestive heart failure. * Repeat level this AM. (3) Heart failure with reduced ejection fraction: Code(s): I50.20 - Unspecified systolic (congestive) heart failure Status: Acute Assessment and Plan: * Clinically euvolemic. (4) Chronic obstructive pulmonary disease: Code(s): J44.9 - Chronic obstructive pulmonary disease, unspecified Status: Acute Assessment and Plan: * Clinically stable (5) Pulmonary nodule: Code(s): R91.1 - Solitary pulmonary nodule Status: Acute Assessment and Plan: * Will need ongoing outpatient follow-up with the [facility]. (6) Rash: Code(s): R21 - Rash and other nonspecific skin eruption Status: Acute Assessment and Plan: * Chronic. Biopsy results pending. * Benadryl no help earlier this morning. * Trial Ativan 0.5 mg x 1 dose. (7) Obstructive sleep apnea of adult: Code(s): G47.33 - Obstructive sleep apnea (adult) (pediatric) Status: Acute Assessment and Plan: * AutoPAP while sleeping until family can bring in home machine. Subjective Date/time seen: 08/12/24 08:56 Interval history: 69-year-old gentleman with known coronary artery disease has received all of his per recent treatment at the [facility] in [place]. He usually has chest pain about once per month it is always relieved by nitroglycerin. His last episode was for 6 weeks ago. Last night however he had sudden onset of cramping sensation in the mid to left chest with radiation to left neck and associated clamminess, mild nausea, and shortness of breath. He said it is similar to his usual chest pain but it was more sudden and surprising. The severity was mild to moderate. Waxed and waned. A little better with nitroglycerin. A little better with morphine. No shortness of breath or sweats at present. Still with mild chest discomfort. Complains of urinary dribbling. Complains of chronic rash for 9 months for which he has had a skin biopsy on the left chest wall. Rash itches intermittently bed and turns red and moves around. Appetite has been good. Ate a good breakfast this morning. Wears a CPAP at home but does not know his settings. Does not know his medication doses edge although he remembers many of the names including metoprolol isosorbide furosemide receive a statin aspirin and Plavix. His is to bring in his medication list around 11:00 AM. Exam Narrative: GENERAL: Alert. NAD. Anxious. SKIN: Excoriation left forearm. Brown macular changes left inframammary chest wall with about 1/2 cm punch biopsy lesion that is covered with a Band-Aid. HEENT: PERRL, sclerae nonicteric, pharyngeal mucosa pink and intact NECK: No JVD, adenopathy, or thyromegaly CHEST: Clear to auscultation. Normal effort. HEART: NL S1/S2, regular, no murmur ABDOMEN: BS+, soft, nontender, no mass, no bruits EXTREMITIES: No cyanosis, edema, or clubbing NEUROLOGIC: CN intact and symmetric to inspection. MUSCULOSKELETAL: Tone and strength symmetric. PSYCH: Alert. Oriented to person, place, and time. Objective Data Vital Signs Vital Signs: Vital Signs - 24 hr 08/12/24 00:02 08/12/24 00:04 08/12/24 00:09 Temperature Pulse Rate 82 86 89 Respiratory Rate 14 22 H 17 Blood Pressure 143/109 H 143/109 H Pulse Oximetry 97 97 97 Oxygen Delivery Room Air 08/12/24 00:15 08/12/24 00:22 08/12/24 00:24 Temperature Pulse Rate 88 86 85 Respiratory Rate 18 19 Blood Pressure 136/101 H Pulse Oximetry 97 97 Oxygen Delivery 08/12/24 00:24 08/12/24 00:25 08/12/24 00:26 Temperature Pulse Rate 83 86 Respiratory Rate 22 H 17 Blood Pressure 154/105 H Pulse Oximetry 97 97 97 Oxygen Delivery Room Air 08/12/24 00:31 08/12/24 00:32 08/12/24 00:45 Temperature Pulse Rate 78 81 88 Respiratory Rate 16 18 20 Blood Pressure 132/100 H Pulse Oximetry 98 98 Oxygen Delivery 08/12/24 02:07 08/12/24 02:15 08/12/24 02:20 Temperature Pulse Rate 61 55 L 65 Respiratory Rate 16 16 20 Blood Pressure 145/111 H Pulse Oximetry 98 98 98 Oxygen Delivery 08/12/24 02:30 08/12/24 02:45 08/12/24 03:00 Temperature Pulse Rate 59 L 61 57 L Respiratory Rate 17 19 16 Blood Pressure Pulse Oximetry 98 96 98 Oxygen Delivery 08/12/24 03:29 08/12/24 03:38 08/12/24 03:45 Temperature Pulse Rate 53 L 54 L 63 Respiratory Rate 17 19 21 H Blood Pressure Pulse Oximetry 96 94 94 Oxygen Delivery 08/12/24 04:00 08/12/24 04:01 08/12/24 04:15 Temperature Pulse Rate 67 57 L 51 L Respiratory Rate 15 19 17 Blood Pressure 148/125 H Pulse Oximetry 92 98 96 Oxygen Delivery 08/12/24 04:30 08/12/24 04:32 08/12/24 04:33 Temperature Pulse Rate 73 66 71 Respiratory Rate 21 H 23 H 22 H Blood Pressure Pulse Oximetry 96 94 Oxygen Delivery 08/12/24 04:45 08/12/24 05:00 08/12/24 05:01 Temperature Pulse Rate 55 L 66 58 L Respiratory Rate 16 14 16 Blood Pressure 153/83 H Pulse Oximetry 96 96 Oxygen Delivery 08/12/24 05:30 08/12/24 05:40 08/12/24 06:00 Temperature Pulse Rate 58 L 58 L Respiratory Rate 16 Blood Pressure 153/83 H Pulse Oximetry 96 Oxygen Delivery Room Air 08/12/24 06:07 08/12/24 08:00 Temperature 98.0 F 97.7 F Pulse Rate 64 59 L Respiratory Rate 18 16 Blood Pressure 139/103 H 141/89 H Pulse Oximetry 100 98 Oxygen Delivery Intake/Output Intake/Output: Intake & Output 08/09/24 08/10/24 08/11/24 08/12/24 23:59 23:59 23:59 23:59 Intake Total 257.5 Balance 257.5 Meds/Results Medications: Active Medications Generic Name Dose Route Start Last Admin Trade Name Freq PRN Reason Stop Dose Admin Acetaminophen 650 mg 08/12/24 06:51 Acetaminophen 325 Mg Tablet PO Q6H PRN Mild Pain (1-3) or Fever Heparin Sodium (Porcine) 4,000 units 08/12/24 03:51 Heparin Sodium 5,000 Units/Ml Vial IV PUSH PRN PRN aPTT less than 55 seconds Heparin Sodium (Porcine) 3,500 units 08/12/24 03:51 Heparin Sodium 5,000 Units/Ml Vial IV PUSH PRN PRN aPTT 55 - 70 seconds Heparin Sodium/Dextrose 25,000 units in 250 mls @ 10 mls/hr 08/12/24 04:00 08/12/24 06:00 Heparin Sodium/D5w 100 Units/Ml IV CONT 1,400 units/hr .Q24H FAWAD 14 mls/hr Titration Protocol 1,000 UNITS/HR Morphine Sulfate 4 mg 08/12/24 06:51 08/12/24 07:06 Morphine Sulfate (*Crx) 2 Mg/Ml Inj IV PUSH 4 mg Q4H PRN Administration Pain Rated 7-10 Perflutren Lipid Microsphere 0 ml 08/12/24 04:17 Perflutren Lipid Microspheres 1.5 Ml Vial Diluted To 10 Ml Total Volume IV PUSH 08/15/24 04:18 ONCE PRN adequate visualization Protocol Radiology Results: ITS Impressions Chest/Abdomen/Pelvis CTA 08/12/24 06:30 Impression: No acute abnormalities seen. 7 mm and 8 mm right lung pulmonary nodules, as above. According to Fleischner Society criteria, for a low-risk patient, follow-up CT scan in 3-6 months recommended, then consider additional 18-[address] A high-risk patients, follow-up CT scans at both 3-6 months and 18-24 months are recommended. No significant abnormality in the abdomen or pelvis. Head CT 08/12/24 06:43 Impression: No significant abnormality seen. Chest X-Ray 08/12/24 06:53 Impression: Clear lungs. Probable cardiomegaly. Labs Labs: Laboratory Results - last 24 hr 08/12/24 08/12/24 08/12/24 00:16 01: 03:08 WBC 11.7 H RBC 4.98 Hgb 14.1 Hct 42.1 MCV 84.5 MCH 28.3 MCHC 33.5 RDW 14.3 Plt Count 241 MPV 12.0 H Immature Gran % (Auto) 0.3 Neut % (Auto) 78.0 H Lymph % (Auto) 13.1 L [place] % (Auto) 5.8 Eos % (Auto) 1.7 Baso % (Auto) 1.1 Lymph # (Auto) 1.53 [place] # (Auto) 0.7 H Eos # (Auto) 0.2 Baso # (Auto) 0.1 Abs Immat Gran (auto) 0.04 H Absolute Neuts (auto) 9.1 H Absolute Nucleated RBC 0.000 Nucleated RBC % 0.0 PT 15.1 H INR 1.2 APTT 33.1 D-Dimer 0.67 H Sodium 141 Potassium 3.5 Chloride 105 Carbon Dioxide 26 Anion Gap 10 BUN 15 Creatinine 0.98 Estim Creat Clear Calc 81 Estimated GFR > 60 Glucose 122 H Calcium 8.4 Magnesium Total Bilirubin 0.8 AST 26 ALT 16 Alkaline Phosphatase 123 Troponin I 0.055 H* 0.069 H* D NT-Pro-B Natriuret Pep 3570 H Total Protein 7.0 Albumin 4.1 Lipase 32 Urine Opiates Screen Positive A Urine Methadone Screen Negative Ur Barbiturates Screen Negative Ur Phencyclidine Scrn Negative Ur Amphetamine Screen Negative U Benzodiazepines Scrn Negative Urine Cocaine Screen Negative U Cannabinoids Screen Negative 08/12/24 06:28 WBC 8.5 RBC 4.95 Hgb 13.9 L Hct 43.4 MCV 87.7 MCH 28.1 MCHC 32.0 RDW 14.5 Plt Count 209 MPV 11.7 H Immature Gran % (Auto) 0.2 Neut % (Auto) 64.1 Lymph % (Auto) 22.4 [place] % (Auto) 7.4 Eos % (Auto) 4.5 H Baso % (Auto) 1.4 H Lymph # (Auto) 1.91 [place] # (Auto) 0.6 Eos # (Auto) 0.4 H Baso # (Auto) 0.1 Abs Immat Gran (auto) 0.02 Absolute Neuts (auto) 5.5 Absolute Nucleated RBC 0.000 Nucleated RBC % 0.0 PT 15.8 H INR 1.2 APTT 56.2 H D-Dimer Sodium 141 Potassium 4.6 Chloride 104 Carbon Dioxide 31 H Anion Gap 6 BUN 16 Creatinine 1.04 Estim Creat Clear Calc 74 Estimated GFR > 60 Glucose 122 H Calcium 8.6 Magnesium 2.2 Total Bilirubin 1.1 AST 27 ALT 15 Alkaline Phosphatase 104 Troponin I 0.087 H* D NT-Pro-B Natriuret Pep Total Protein 7.0 Albumin 4.0 Lipase Urine Opiates Screen Urine Methadone Screen Ur Barbiturates Screen Ur Phencyclidine Scrn Ur Amphetamine Screen U Benzodiazepines Scrn Urine Cocaine Screen U Cannabinoids Screen Hospitalist [facility] Advance Care Plan I have confirmed that the patient's Advanced Care Plan is present, code status is documented, or surrogate decision maker is listed in patient medical record.: Yes
[2024-08-12 10:35] LABS: Troponin I 0.081 ng/mL (0.000-0.034)
[2024-08-12] MEDS: LORazepam INJ (*CRX) 2 MG/ML VIAL 0.5 MG IV PUSH (10:44)
--- NOTE | 2024-08-12 11:26 | PM.CNCAR ---
Assessment and Plan Assessment and plan (1) Acute non-ST elevation myocardial infarction (NSTEMI): Code(s): I21.4 - Non-ST elevation (NSTEMI) myocardial infarction Status: Acute (2) Coronary artery disease: Code(s): I25.10 - Atherosclerotic heart disease of m[place] coronary artery without angina pectoris Status: Acute (3) Heart failure with reduced ejection fraction: Code(s): I50.20 - Unspecified systolic (congestive) heart failure Status: Acute (4) Hypertension: Code(s): I10 - Essential (primary) hypertension Status: Acute (5) Cerebrovascular accident: Code(s): I63.9 - Cerebral infarction, unspecified Status: Acute (6) Chronic obstructive pulmonary disease: Code(s): J44.9 - Chronic obstructive pulmonary disease, unspecified Status: Acute (7) Pulmonary nodule: Code(s): R91.1 - Solitary pulmonary nodule Status: Acute (8) Tobacco dependence: Code(s): F17.200 - Nicotine dependence, unspecified, uncomplicated Status: Acute Plan Assessment: NSTEMI-rising troponin and ongoing chest pain CAD Heart failure with reduced ejection fraction-BNP is elevated but he is euvolemic by exam; there is no echo in our system Tobacco use Hypertension-not well controlled CVA Plan: Add aspirin 81 mg daily Add atorvastatin 80 mg daily Add metoprolol 25 mg b.i.d. Continue heparin drip Cardiac cath to evaluate coronaries. Risks and benefits of procedure were discussed with the patient and he is willing to proceed TTE today. No prior TTE in our system. 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 Patient reports the pain is located in the left chest and describes it as a squeezing that comes on suddenly and radiates to his left shoulder and neck before resolving in a couple of minutes. He rates it at an intensity of 5/10 and is worse at the time it starts. No diaphoresis, shortness of breath, lightheadedness, dizziness, leg swelling, recent weight gain. Troponin is elevated 0.05 and continues to increase to 0.069 and further to 0.087. BNP is 3570. EKG shows sinus rhythm with PVCs. He was started on a heparin drip and Cardiology was consulted for further management of NSTEMI. Workup: Troponin 0.055, 0.069, 0.087 BNP S: 3570 EKG: Sinus rhythm with PVCs, LVH with associated ST-T changes CT: Lung nodules Review of Systems Review of Systems: Complete review of systems was performed and negative other than those mentioned in HPI [facility] Past Medical History Medical History (Updated 08/12/24 @ 09:28 by Jonathon Brennan MD) Heart failure with reduced ejection fraction Chronic obstructive pulmonary disease Hypertension Tobacco dependence Cerebrovascular accident Coronary artery disease Family History Family History (Updated 08/12/24 @ 05:42 by Sherice Castellanos RN) Father Acute myocardial infarction Social History Social History Smoking packs per day: 0.25 Smoking cigarettes per day: 5.0 Years smoked: 40 Smoking pack-years: 10.00 Smoking status: Current every day smoker Tobacco type: cigarettes Alcohol intake: never Substance use: never Do You Feel Safe in your Home?: Yes Lack of Transportation: No Lack of Food: Never True Current Housing: I Have Housing Concerned About Future Housing: No Difficulty Paying Gas/Electric Bills: No Difficulty Paying for Meds: No Currently Unemployed: No Education: High School Diploma/GED Difficulty w/ Childcare or Family Care: No Spiritual care concerns: No Meds Home Medications and Allergies Allergies Allergy/AdvReac Type Severity Reaction Status Date / Time latex Allergy Mild Hives Verified 08/12/24 05:32 Vital Signs Vital Signs - 24 hr 08/12/24 00:02 08/12/24 00:04 08/12/24 00:09 Temperature Pulse Rate 82 86 89 Respiratory Rate 14 22 H 17 Blood Pressure 143/109 H 143/109 H Pulse Oximetry 97 97 97 Oxygen Delivery Room Air 08/12/24 00:15 08/12/24 00:22 08/12/24 00:24 Temperature Pulse Rate 88 86 85 Respiratory Rate 18 19 Blood Pressure 136/101 H Pulse Oximetry 97 97 Oxygen Delivery 08/12/24 00:24 08/12/24 00:25 08/12/24 00:26 Temperature Pulse Rate 83 86 Respiratory Rate 22 H 17 Blood Pressure 154/105 H Pulse Oximetry 97 97 97 Oxygen Delivery Room Air 08/12/24 00:31 08/12/24 00:32 08/12/24 00:45 Temperature Pulse Rate 78 81 88 Respiratory Rate 16 18 20 Blood Pressure 132/100 H Pulse Oximetry 98 98 Oxygen Delivery 08/12/24 02:07 08/12/24 02:15 08/12/24 02:20 Temperature Pulse Rate 61 55 L 65 Respiratory Rate 16 16 20 Blood Pressure 145/111 H Pulse Oximetry 98 98 98 Oxygen Delivery 08/12/24 02:30 08/12/24 02:45 08/12/24 03:00 Temperature Pulse Rate 59 L 61 57 L Respiratory Rate 17 19 16 Blood Pressure Pulse Oximetry 98 96 98 Oxygen Delivery 08/12/24 03:29 08/12/24 03:38 08/12/24 03:45 Temperature Pulse Rate 53 L 54 L 63 Respiratory Rate 17 19 21 H Blood Pressure Pulse Oximetry 96 94 94 Oxygen Delivery 08/12/24 04:00 08/12/24 04:01 08/12/24 04:15 Temperature Pulse Rate 67 57 L 51 L Respiratory Rate 15 19 17 Blood Pressure 148/125 H Pulse Oximetry 92 98 96 Oxygen Delivery 08/12/24 04:30 08/12/24 04:32 08/12/24 04:33 Temperature Pulse Rate 73 66 71 Respiratory Rate 21 H 23 H 22 H Blood Pressure Pulse Oximetry 96 94 Oxygen Delivery 08/12/24 04:45 08/12/24 05:00 08/12/24 05:01 Temperature Pulse Rate 55 L 66 58 L Respiratory Rate 16 14 16 Blood Pressure 153/83 H Pulse Oximetry 96 96 Oxygen Delivery 08/12/24 05:30 08/12/24 05:40 08/12/24 06:00 Temperature Pulse Rate 58 L 58 L Respiratory Rate 16 Blood Pressure 153/83 H Pulse Oximetry 96 Oxygen Delivery Room Air 08/12/24 06:07 08/12/24 08:00 Temperature 36.7 C 36.5 C Pulse Rate 64 59 L Respiratory Rate 18 16 Blood Pressure 139/103 H 141/89 H Pulse Oximetry 100 98 Oxygen Delivery Exam Narrative: General: Alert oriented x3, no acute distress Neck: Supple, no JVD Chest: Bilaterally clear to auscultation, no rales or rhonchi Cardiac: S1, S2 +, regular rate, regular rhythm, no murmurs or rubs Extremities: No pedal edema, no skin rash Neurologic: Alert and oriented x3, no focal neurological deficits Results Labs and Meds 08/12/24 06:28 08/12/24 06:28 Lab results: Cardiac Enzymes 08/12/24 08/12/24 08/12/24 Range/Units 00:16 03:08 06:28 AST 26 27 (17-59) U/L Troponin I 0.055 H* 0.069 H* D 0.087 H* D (0.000-0.034) ng/mL 08/12/24 Range/Units 09:53 AST (17-59) U/L Troponin I 0.081 H* (0.000-0.034) ng/mL Coagulation 08/12/24 08/12/24 Range/Units 00:16 06:28 PT 15.1 H 15.8 H (11.1-14.7) Seconds APTT 33.1 56.2 H (22.3-36.8) Seconds CBC 08/12/24 08/12/24 Range/Units 00:16 06:28 WBC 11.7 H 8.5 (4.5-10.0) K/mm3 RBC 4.98 4.95 (4.6-6.20) M/mm3 Hgb 14.1 13.9 L (14.0-18.0) g/dL Hct 42.1 43.4 (42.0-52.0) % Plt Count 241 209 (150-375) k/mm3 Lymph # (Auto) 1.53 1.91 (0.9-3.2) K/mm3 [place] # (Auto) 0.7 H 0.6 (0.1-0.6) K/mm3 Eos # (Auto) 0.2 0.4 H (0-0.3) K/mm3 Baso # (Auto) 0.1 0.1 (0.0-0.1) K/mm3 Comprehensive Metabolic Panel 08/12/24 08/12/24 Range/Units 00:16 06:28 Sodium 141 141 (137-145) mmol/L Potassium 3.5 4.6 (3.4-5.0) mmol/L Chloride 105 104 (98-107) mmol/L Carbon Dioxide 26 31 H (22-30) mmol/L BUN 15 16 (9-20) mg/dL Creatinine 0.98 1.04 (0.7-1.3) mg/dL Glucose 122 H 122 H (65-110) mg/dL Calcium 8.4 8.6 (8.4-10.2) mg/dL AST 26 27 (17-59) U/L ALT 16 15 (6-50) U/L Alkaline Phosphatase 123 104 (38-126) U/L Total Protein 7.0 7.0 (6.3-8.2) g/dL Albumin 4.1 4.0 (3.5-5.1) g/dL Intake and Output 08/11/24 08/12/24 08/12/24 23:59 07:59 15:59 Intake Total 17.5 240 Balance 17.5 240 Intake: IV 17.5 Heparin Sod/D5w 100 Units/ml 25 17.5 ,000 units In 250 ml @ 1,000 UNITS/HR 10 mls/hr IV CONT . Q24H [facility] Rx#:[id number] Oral 240 Patient Weight 08/12/24 23:59 Weight 101.6 kg
--- NOTE | 2024-08-12 15:01 | P.SEDATION_ITS ---
Moderate Sedation Note-Pt Data Patient Data Allergies Allergy/AdvReac Type Severity Reaction Status Date / Time latex Allergy Mild Hives Verified 08/12/24 05:32 Current Medications: Active Medications Acetaminophen (Acetaminophen 325 Mg Tablet) 650 mg PO Q6H PRN PRN Reason: Mild Pain (1-3) or Fever Aspirin (Aspirin 81 Mg Enteric Tablet) 81 mg PO QAM FAWAD Atorvastatin Calcium (Atorvastatin 40 Mg Tablet) 80 mg PO DAILY FAWAD Heparin Sodium (Porcine) (Heparin Sodium 5,000 Units/Ml Vial) 4,000 units IV PUSH PRN PRN PRN Reason: aPTT less than 55 seconds Heparin Sodium (Porcine) (Heparin Sodium 5,000 Units/Ml Vial) 3,500 units IV PUSH PRN PRN PRN Reason: aPTT 55 - 70 seconds Heparin Sodium/Dextrose (Heparin Sodium/D5w 100 Units/Ml) 25,000 units in 250 mls @ 10 mls/hr IV CONT .Q24H FAWAD; Protocol Last Titration: 08/12/24 11:41 Dose: 1,400 units/hr, 14 mls/hr Sodium Chloride (Normal Saline Iv) 1,000 mls @ 125 mls/hr IV CONT .Q8H ONE Stop: 08/12/24 22:58 Metoprolol Tartrate (Metoprolol Tartrate 25 Mg Tablet) 25 mg PO Q12HR FAWAD Morphine Sulfate (Morphine Sulfate (*Crx) 2 Mg/Ml Inj) 4 mg IV PUSH Q4H PRN PRN Reason: Pain Rated 7-10 Last Admin: 08/12/24 07:06 Dose: 4 mg Nitroglycerin (Nitroglycerin Sl 0.4 Mg Tablet) 0.4 mg SUBLINGUAL Q5MIN PRN PRN Reason: Chest Pain Last Admin: 08/12/24 12:32 Dose: 0.4 mg Perflutren Lipid Microsphere (Perflutren Lipid Microspheres 1.5 Ml Vial Diluted To 10 Ml Total Volume) 0 ml IV PUSH ONCE PRN; Protocol PRN Reason: adequate visualization Stop: 08/15/24 04:18 Sedation/Anesthesia: No previous sedation/anesthesia problems (including family history). [facility] Past Medical History Medical History (Updated 08/12/24 @ 09:28 by Jonathon Brennan MD) Heart failure with reduced ejection fraction Chronic obstructive pulmonary disease Hypertension Tobacco dependence Cerebrovascular accident Coronary artery disease Family History Family History (Updated 08/12/24 @ 05:42 by Sherice Castellanos RN) Father Acute myocardial infarction Social History Social History Smoking packs per day: 0.25 Smoking cigarettes per day: 5.0 Years smoked: 40 Smoking pack-years: 10.00 Smoking status: Current every day smoker Tobacco type: cigarettes Alcohol intake: never Substance use: never Do You Feel Safe in your Home?: Yes Lack of Transportation: No Lack of Food: Never True Current Housing: I Have Housing Concerned About Future Housing: No Difficulty Paying Gas/Electric Bills: No Difficulty Paying for Meds: No Currently Unemployed: No Education: High School Diploma/GED Difficulty w/ Childcare or Family Care: No Spiritual care concerns: No Mod Sed Physical Exam Physical Exam Pre Procedural Exam: Normal: Lungs, Heart Rate and Heart Rhythm Hours since solid foods: 6 Hours since liquid intake: 6 Mallampati Classification: class III Internal Medicine - PN: Obj Da Vital Signs Vital Signs: Vital Signs - 24 hr 08/12/24 00:02 08/12/24 00:04 08/12/24 00:09 Temperature Pulse Rate 82 86 89 Respiratory Rate 14 22 H 17 Blood Pressure 143/109 H 143/109 H Pulse Oximetry 97 97 97 Oxygen Delivery Room Air 08/12/24 00:15 08/12/24 00:22 08/12/24 00:24 Temperature Pulse Rate 88 86 85 Respiratory Rate 18 19 Blood Pressure 136/101 H Pulse Oximetry 97 97 Oxygen Delivery 08/12/24 00:24 08/12/24 00:25 08/12/24 00:26 Temperature Pulse Rate 83 86 Respiratory Rate 22 H 17 Blood Pressure 154/105 H Pulse Oximetry 97 97 97 Oxygen Delivery Room Air 08/12/24 00:31 08/12/24 00:32 08/12/24 00:45 Temperature Pulse Rate 78 81 88 Respiratory Rate 16 18 20 Blood Pressure 132/100 H Pulse Oximetry 98 98 Oxygen Delivery 08/12/24 02:07 08/12/24 02:15 08/12/24 02:20 Temperature Pulse Rate 61 55 L 65 Respiratory Rate 16 16 20 Blood Pressure 145/111 H Pulse Oximetry 98 98 98 Oxygen Delivery 08/12/24 02:30 08/12/24 02:45 08/12/24 03:00 Temperature Pulse Rate 59 L 61 57 L Respiratory Rate 17 19 16 Blood Pressure Pulse Oximetry 98 96 98 Oxygen Delivery 08/12/24 03:29 08/12/24 03:38 08/12/24 03:45 Temperature Pulse Rate 53 L 54 L 63 Respiratory Rate 17 19 21 H Blood Pressure Pulse Oximetry 96 94 94 Oxygen Delivery 08/12/24 04:00 08/12/24 04:01 08/12/24 04:15 Temperature Pulse Rate 67 57 L 51 L Respiratory Rate 15 19 17 Blood Pressure 148/125 H Pulse Oximetry 92 98 96 Oxygen Delivery 08/12/24 04:30 08/12/24 04:32 08/12/24 04:33 Temperature Pulse Rate 73 66 71 Respiratory Rate 21 H 23 H 22 H Blood Pressure Pulse Oximetry 96 94 Oxygen Delivery 08/12/24 04:45 08/12/24 05:00 08/12/24 05:01 Temperature Pulse Rate 55 L 66 58 L Respiratory Rate 16 14 16 Blood Pressure 153/83 H Pulse Oximetry 96 96 Oxygen Delivery 08/12/24 05:30 08/12/24 05:40 08/12/24 06:00 Temperature Pulse Rate 58 L 58 L Respiratory Rate 16 Blood Pressure 153/83 H Pulse Oximetry 96 Oxygen Delivery Room Air 08/12/24 06:07 08/12/24 08:00 08/12/24 11:56 Temperature 36.7 C 36.5 C 36.6 C Pulse Rate 64 59 L 56 L Respiratory Rate 18 16 20 Blood Pressure 139/103 H 141/89 H 129/74 Pulse Oximetry 100 98 97 Oxygen Delivery Intake/Output Intake/Output: Intake & Output 08/09/24 08/10/24 08/11/24 08/12/24 23:59 23:59 23:59 23:59 Intake Total 337.1 Balance 337.1 Meds/Results Medications: Active Medications Generic Name Dose Route Start Last Admin Trade Name Freq PRN Reason Stop Dose Admin Acetaminophen 650 mg 08/12/24 06:51 Acetaminophen 325 Mg Tablet PO Q6H PRN Mild Pain (1-3) or Fever Aspirin 81 mg 08/13/24 09:00 Aspirin 81 Mg [facility] Atorvast[place] Calcium 80 mg 08/13/24 09:00 Atorvastatin 40 Mg Tablet PO DAILY [facility] Heparin Sodium (Porcine) 4,000 units 08/12/24 03:51 Heparin Sodium 5,000 Units/Ml Vial IV PUSH PRN PRN aPTT less than 55 seconds Heparin Sodium (Porcine) 3,500 units 08/12/24 03:51 Heparin Sodium 5,000 Units/Ml Vial IV PUSH PRN PRN aPTT 55 - 70 seconds Heparin Sodium/Dextrose 25,000 units in 250 mls @ 10 mls/hr 08/12/24 04:00 08/12/24 11:41 Heparin Sodium/D5w 100 Units/Ml IV CONT 1,400 units/hr .Q24H FAWAD 14 mls/hr Titration Protocol 1,000 UNITS/HR Sodium Chloride 1,000 mls @ 125 mls/hr 08/12/24 14:59 Normal Saline Iv IV CONT 08/12/24 22:58 .Q8H ONE Metoprolol Tartrate 25 mg 08/12/24 21:00 Metoprolol Tartrate 25 Mg Tablet PO Q12HR FAWAD Morphine Sulfate 4 mg 08/12/24 06:51 08/12/24 07:06 Morphine Sulfate (*Crx) 2 Mg/Ml Inj IV PUSH 4 mg Q4H PRN Administration Pain Rated 7-10 Nitroglycerin 0.4 mg 08/12/24 12:16 08/12/24 12:32 Nitroglycerin Sl 0.4 Mg Tablet SUBLINGUAL 0.4 mg Q5MIN PRN Administration Chest Pain Perflutren Lipid Microsphere 0 ml 08/12/24 04:17 Perflutren Lipid Microspheres 1.5 Ml Vial Diluted To 10 Ml Total Volume IV PUSH 08/15/24 04:18 ONCE PRN adequate visualization Protocol Radiology Results: ITS Impressions Chest/Abdomen/Pelvis CTA 08/12/24 06:30 Impression: No acute abnormalities seen. 7 mm and 8 mm right lung pulmonary nodules, as above. According to Fleischner Society criteria, for a low-risk patient, follow-up CT scan in 3-6 months recommended, then consider additional 18-[address] A high-risk patients, follow-up CT scans at both 3-6 months and 18-24 months are recommended. No significant abnormality in the abdomen or pelvis. Head CT 08/12/24 06:43 Impression: No significant abnormality seen. Chest X-Ray 08/12/24 06:53 Impression: Clear lungs. Probable cardiomegaly. Labs 08/12/24 06:28 08/12/24 06:28 Labs: Laboratory Results - last 24 hr 08/12/24 08/12/24 08/12/24 00:16 01:25 03:08 WBC 11.7 H RBC 4.98 Hgb 14.1 Hct 42.1 MCV 84.5 MCH 28.3 MCHC 33.5 RDW 14.3 Plt Count 241 MPV 12.0 H Immature Gran % (Auto) 0.3 Neut % (Auto) 78.0 H Lymph % (Auto) 13.1 L [place] % (Auto) 5.8 Eos % (Auto) 1.7 Baso % (Auto) 1.1 Lymph # (Auto) 1.53 [place] # (Auto) 0.7 H Eos # (Auto) 0.2 Baso # (Auto) 0.1 Abs Immat Gran (auto) 0.04 H Absolute Neuts (auto) 9.1 H Absolute Nucleated RBC 0.000 Nucleated RBC % 0.0 PT 15.1 H INR 1.2 APTT 33.1 D-Dimer 0.67 H Sodium 141 Potassium 3.5 Chloride 105 Carbon Dioxide 26 Anion Gap 10 BUN 15 Creatinine 0.98 Estim Creat Clear Calc 81 Estimated GFR > 60 Glucose 122 H Calcium 8.4 Magnesium Total Bilirubin 0.8 AST 26 ALT 16 Alkaline Phosphatase 123 Troponin I 0.055 H* 0.069 H* D NT-Pro-B Natriuret Pep 3570 H Total Protein 7.0 Albumin 4.1 Lipase 32 Urine Opiates Screen Positive A Urine Methadone Screen Negative Ur Barbiturates Screen Negative Ur Phencyclidine Scrn Negative Ur Amphetamine Screen Negative U Benzodiazepines Scrn Negative Urine Cocaine Screen Negative U Cannabinoids Screen Negative 08/12/24 08/12/24 08/12/24 06:28 09:53 10:55 WBC 8.5 RBC 4.95 Hgb 13.9 L Hct 43.4 MCV 87.7 MCH 28.1 MCHC 32.0 RDW 14.5 Plt Count 209 MPV 11.7 H Immature Gran % (Auto) 0.2 Neut % (Auto) 64.1 Lymph % (Auto) 22.4 [place] % (Auto) 7.4 Eos % (Auto) 4.5 H Baso % (Auto) 1.4 H Lymph # (Auto) 1.91 [place] # (Auto) 0.6 Eos # (Auto) 0.4 H Baso # (Auto) 0.1 Abs Immat Gran (auto) 0.02 Absolute Neuts (auto) 5.5 Absolute Nucleated RBC 0.000 Nucleated RBC % 0.0 PT 15.8 H INR 1.2 APTT 56.2 H 76.0 H D-Dimer Sodium 141 Potassium 4.6 Chloride 104 Carbon Dioxide 31 H Anion Gap 6 BUN 16 Creatinine 1.04 Estim Creat Clear Calc 74 Estimated GFR > 60 Glucose 122 H Calcium 8.6 Magnesium 2.2 Total Bilirubin 1.1 AST 27 ALT 15 Alkaline Phosphatase 104 Troponin I 0.087 H* D 0.081 H* NT-Pro-B Natriuret Pep Total Protein 7.0 Albumin 4.0 Lipase Urine Opiates Screen Urine Methadone Screen Ur Barbiturates Screen Ur Phencyclidine Scrn Ur Amphetamine Screen U Benzodiazepines Scrn Urine Cocaine Screen U Cannabinoids Screen ASA Classification/Sedation ASA Classification/Sedation ASA Class: III Emergent: No Risks: Risks, benefits and alternatives explained and patient/family accepted plan for sedation. Patient re-evaluated immediately prior to sedation.
--- NOTE | 2024-08-12 15:02 | WPDHPUPDATE1 ---
History and Physical Update Update Date/Time: 08/12/24 13:45 History and Physical has been reviewed, including an updated exam of the patient. There are following changes in the patient's condition- rising troponin, ongoing chest pain Risks, benefits, and alternatives have been discussed and questions answered. Patient agrees to proceed with procedure.
--- NOTE | 2024-08-12 15:03 | P.PCNCC_ITS ---
Cardiac Cath Procedure Note Date of procedure:: 08/12/24 Performing physician:: Stephanie Ramires MD Indication:: Chest pain and rising troponin Brief clinical history:: 69 year old male with history of CAD, CVA, HFrEF, HTN, COPD, tobacco use who presented to the hospital with chief complaints of chest pain at rest. Patient reports the pain is located in the left chest and describes it as a squeezing that comes on suddenly and radiates to his left shoulder and neck before resolving in a couple of minutes. He rates it at an intensity of 5/10 and is worse at the time it starts. No diaphoresis, shortness of breath, lightheadedness, dizziness, leg swelling, recent weight gain. Troponin is elevated 0.05 and continues to increase to 0.069 and further to 0.087. BNP is 3570. EKG shows sinus rhythm with PVCs. He was started on a heparin drip and Cardiology was consulted for further management of NSTEMI. Patient continues to have ongoing chest pain with rising troponin while on heparin drip. Procedure Procedure performed:: Right radial access Left heart catheterization Selective right and left coronary angiogram Sedation/Medication given:: Versed 1 mg Fentanyl 100 mg Procedure start time 2:15 p.m. Procedure end time 2:40 p.m. Total sedation monitoring time: 25 minute Anticoagulation: 5000 units heparin Access site:: Right radial artery access Closure: TR band Estimated blood loss:: 20 mL Procedure note:: Procedure technique: After informed consent was obtained, the patient was brought to the cardiac veterinarian laboratory animal care and was placed in the supine position. Access site was prepped and draped in usual sterile manner. Right radial access was obtained using modified Seldinger technique. Six [place] sheath was inserted in the right radial artery. 200mg of nitroglycerin was administered through the radial sheath. 5000units of IV heparin were administered after crossing the arch with a J-wire. We started 1st with coronary angiography. Selective right coronary angiography was performed in a standard fashion using diagnostic JR 4 catheter. The JR4 catheter was used to cross into the LV over a J-wire and LVEDP was obtained. The JR4 catheter was removed from the body. Selective left coronary angiography was performed in a standard fashion using diagnostic JL3.5 diagnostic catheter. The JL3.5. catheter was removed from the body. Patient tolerated the procedure well without any complications. Radial artery sheath was removed from the body. TR band was applied to the radial access site. Catheters used for selective coronary angiograms: 5 [place] JL 3.5 diagnostic catheter 5 [place]i IM diagnostic catheter 5 [place] JR4 diagnostic catheter Hemodynamic data: Opening aortic pressure: 129/98/114 Closing aortic pressure: 126/91/107 LVEDP: 35 mmHg Findings:: 1. The left main coronary artery arises from the left coronary cusp and divides into the left anterior descending and left circumflex. It is free of angiographic disease. 2. The left anterior descending artery arises from the left main and gives off multiple diagonals. Mid LAD has 40% diffuse stenosis with ANGELITA 3 flow beyond the stenosis. 3. The left circumflex artery arises from the left main and is a non dominant artery. It is free of angiographic disease. Slow flow noted in the left circumflex. 4. RCA is an ectatic large vessel and dominant which bifurcates into the RPDA and RPLA. It is free of angiographic disease. Conclusion:: Nonobstructive CAD with 40% diffuse stenosis in mid LAD. Large ectatic vessels with slow flow Assessment and Plan Assessment and plan (1) Acute non-ST elevation myocardial infarction (NSTEMI): Code(s): I21.4 - Non-ST elevation (NSTEMI) myocardial infarction Status: Acute (2) Chest pain: Code(s): R07.9 - Chest pain, unspecified Status: Acute Plan NSTEMI-type 2 Non obstructive CAD Elevated LVEDP of 35 Plan: Medical management for CAD with aspirin, statin, metoprolol Continue heparin drip given slow flow. Can stop after 12 hours Add Imdur 30 mg daily Maintain SBP greater than 120 mm Hg and avoid hypotension Diureses with Lasix 40 mg IV b.i.d. while in the hospital given elevated LVEDP. Administer Lasix 40 mg p.o. at discharge if not already a home medication
--- NOTE | 2024-08-12 15:07 | PC.NURSE ---
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
--- NOTE | 2024-08-12 15:07 | PC.NURSE ---
Patient arrived to ICU room 4 from cardiac laborer brush clearing at 1501. Bedside report received. RN to resume patient care.
[2024-08-12] MEDS: SODIUM CHLORIDE 0.9% IV 1,000 ML 125 ML IV CONT (15:33)
[2024-08-12] MEDS: ISOSORBIDE MONONITRATE 30 MG TAB.ER.24H PO (16:37)
[2024-08-12 16:41] LABS: Basophils Absolute Auto 0.1 K/mm3 (0.0-0.1); Basophils Percent Auto 2.1 % (0.2-1.2); Eosinophils Absolute Auto 0.4 K/mm3 (0-0.3); Hematocrit 38.4 % (42.0-52.0); Hemoglobin 12.5 g/dL (14.0-18.0); Immature Granulocyte Absolute 0.01 K/mm3 (0.00-0.031); Immature Granulocyte Percent A 0.2 % (0-0.5); Lymphocytes Absolute Auto 1.42 K/mm3 (0.9-3.2); Lymphocytes Percent Auto 23.5 % (18.3-44.2); Mean Corpuscular HGB Conc 32.6 g/dl (32-36); Mean Corpuscular Volume 86.1 fl (80-100); Mean Platelet Volume 11.7 fl (7.4-10.4); Monocytes Absolute Auto 0.6 K/mm3 (0.1-0.6); Monocytes Percent Auto 9.1 % (2.6-8.5); Neutrophils Absolute Auto 3.6 K/mm3 (1.3-6.7); Neutrophils Percent Auto 59.1 % (45.5-73.1); Platelet Count Result 184 k/mm3 (150-375); Red Blood Count 4.46 M/mm3 (4.6-6.20); Red Cell Distribution Width 14.5 % (11.5-14.5); White Blood Count 6.1 K/mm3 (4.5-10.0)
[2024-08-12 16:53] LABS: INR 1.3; Prothrombin Time 16.2 Seconds (11.1-14.7)
[2024-08-12 16:54] LABS: Partial Thromboplastin Time 75.8 Seconds (22.3-36.8)
[2024-08-12] MEDS: HEPARIN SOD/D5W 100 UNITS/ML 25,000 UNITS/250 ML BAG 10 UNITS IV CONT (21:09)
[2024-08-12] MEDS: METOPROLOL TARTRATE 25 MG TABLET PO (21:10)
[2024-08-13] VITALS (17 sets, daily range): BP systolic 129–162; BP diastolic 72–92; PULSE 45–77; RESP 14–20; TEMP 36.6–37; O2SAT 95–98
[2024-08-13 01:21] LABS: Partial Thromboplastin Time 45.3 Seconds (22.3-36.8)
[2024-08-13] MEDS: HEPARIN SODIUM 5,000 UNITS/ML VIAL 4000 UNITS IV PUSH (02:00)
--- NOTE | 2024-08-13 06:00 | ECHO_ITS ---
Patient Info Name: Isaias Qureshi Age: 69 years : 1955 Gender: Male Ht: 71 in Wt: 223 lbs BSA: 2.28 m2 HR: 59 bpm BP: 129 / 72 mmHg Heart Rhythm: Sinus Rhythm Technical Quality: Fair Exam Date: 08/13/2024 1:13 PM Exam Location: Echo Lab Patient Status: Inpatient Admit Date: 08/12/2024 Staff Ordering Physician: Chevy Leger MD Bill Collector: Dhara Agrawal RDCS Attending Provider: Yasmine Noe MD Referring Physician: [place] DE OLIVEIRA; Exam Type: CA echo dop color flow w con Study Info Indications - NSTEMI, CHF Complete two-dimensional, color flow and Doppler transthoracic echocardiogram is performed with contrast to opacify the left ventricle and to improve the deliniation of the left ventricle endocardial borders. Contrast/Agitated Saline Contrast/Ag. Saline: Definity Amount: 2.00 ml Administered By: Dhara Agrawal RDCS Existing IV Access: Yes IV Access Condition: patent with no signs of infiltration Summary 1. Left ventricular chamber dimension is mildly enlarged. 2. Left ventricular systolic function is normal, estimated at 45-50%. 3. There is moderately increased left ventricular wall thickness. 4. The left ventricular diastolic function is grade I diastolic dysfunction. 5. Left atrial chamber dimension is mildly enlarged. 6. There is trace mitral valve regurgitation. 7. There is mild tricuspid valve regurgitation. 8. No pulmonary hypertension, estimated pulmonary arterial systolic pressure is 32 mmHg. 9. There is mild pulmonic regurgitation. Left Ventricle Left ventricular chamber dimension is mildly enlarged. Left ventricular systolic function is normal, estimated at 45-50%. There is moderately increased left ventricular wall thickness. The left ventricular diastolic function is grade I diastolic dysfunction. Right Ventricle Right ventricular chamber dimension is normal. Right ventricular systolic function is normal. Left Atria Left atrial chamber dimension is mildly enlarged. Right Atria Right atrial chamber dimension is normal. Atrial Septum Intact interatrial septum visualized by color flow imaging. Aortic Valve The aortic valve is trileaflet. There is no aortic valve sclerosis. There is no aortic valve stenosis. There is no aortic valve regurgitation. Pulmonic Valve The pulmonic valve is normal. There is no pulmonic valve stenosis. There is mild pulmonic regurgitation. Mitral Valve The mitral valve has normal leaflets. There is no mitral valve stenosis. There is trace mitral valve regurgitation. Tricuspid Valve The tricuspid valve leaflets are normal. There is no significant tricuspid valve stenosis. There is mild tricuspid valve regurgitation. No pulmonary hypertension, estimated pulmonary arterial systolic pressure is 32 mmHg. Pericardium/Pleural The pericardium appears normal. There is no pericardial effusion. Inferior Vena Cava Normal inferior vena cava with >50% collapse upon inspiration consistent with Empty right atrial pressure, 10 mmHg. Aorta The aortic root size at the sinus of Valsalva is normal. The prox ascending aorta size is normal. Left Ventricular Outflow Tract Name Value Normal LVOT 2D LVOT Diameter 2.43 cm LVOT Doppler LVOT Peak Gradient 3 mmHg LVOT Mean Gradient 1 mmHg LVOT VTI 15.01 cm LVOT VTI/AV VTI Ratio 0.56 LVOT Stroke Volume 69.60 ml LVOT CO 3.81 l/min LVOT CI 1.67 L/min/m2 Pulmonic Valve Name Value Normal RVOT Doppler RVOT Peak Gradient 3 mmHg PV Doppler PV Peak Gradient 8 mmHg Mitral Valve Name Value Normal MV Doppler MV Decel Lander 301.04 cm/s2 MV PHT 0 s MV Area (PHT) 3.06 cm2 4.00-5.00 MV Diastolic Function MV E Peak Velocity 74.72 cm/s MV A Peak Velocity 88.62 cm/s MV E/A 0.84 MV Decel Time 0 s MV Annular TDI MV E/e' (Septal) 16.12 <=8.00 MV E/e' (Lateral) 9.20 <=8.00 MV E/e' (Average) 12.66 Tricuspid Valve Name Value Normal TV Regurgitation Doppler TR Peak Velocity 236.75 cm/s TR Peak Gradient 12 mmHg Estimated PAP/RSVP RA Pressure 10 mmHg <=5 PA Systolic Pressure 32 mmHg <36 RV Systolic Pressure 32 mmHg <36 Aorta Name Value Normal Ascending Aorta Ao Root Diameter (MM) 3.88 cm Ao Root Diam Index (MM) 1.71 cm/m2 Aortic Valve Name Value Normal AV Doppler AV Peak Velocity 175.53 cm/s AV Peak Gradient 12 mmHg AV Mean Gradient 6 mmHg AV VTI 26.85 cm AV Area (Cont Eq VTI) 2.59 cm2 >=3.00 AV Area (Cont Eq Smith) 2.26 cm2 AV Regurgitation 2D LVOT Area 4.64 cm2 Ventricles Name Value Normal LV Dimensions 2D/MM IVS Diastolic Thickness (2D) 1.22 cm 0.60-1.00 LVID Diastole (2D) 6.55 cm 4.20-5.80 LVIW Diastolic Thickness (2D) 1.10 cm 0.60-1.00 LVID Systole (2D) 4.89 cm 2.50-4.00 LVOT Diameter 2.43 cm LV Mass (2D Cubed) 347.84 g 88.00-224.00 LV Mass Index (2D Cubed) 0.02 g/cm2 0.00-0.01 Relative Wall Thickness (2D) 0.34 LV Fractional Shortening/Ejection Fraction 2D/MM LV Fractional Shortening (2D) 25 % 25-43 LV EF (2D Teicholz) 49 % 52-72 LV Diastolic Volume (4C MOD) 287.69 ml LV EF (4C MOD) 52 % LV Diastolic Volume (2C MOD) 184.52 ml LV EF (2C MOD) 47 % LV Diastolic Volume (BP MOD) 234.29 ml 62.00-150.00 LV Diastolic Volume Index (BP MOD) 0.10 l/m2 0.03-0.07 LV Systolic Volume (BP MOD) 117.72 ml 21.00-61.00 LV Systolic Volume Index (BP MOD) 0.05 l/m2 0.01-0.03 LV EF (BP MOD) 50 % 52-72 LV Diastolic Length (4C) 10.10 cm LV Systolic Length (4C) 8.86 cm LV Stroke Volume (4C MOD) 149.76 ml Atria Name Value Normal LA Dimensions LA Dimension (MM) 5.87 cm 3.00-4.10 RA Dimensions RA Area (4C) 15.25 cm2 <=18.00 Report Signatures
--- NOTE | 2024-08-13 07:22 | P.PNIM_ITS ---
Progress Note: A&P Assessment and Plan (1) Hypertension: Code(s): I10 - Essential (primary) hypertension Status: Acute (2) Heart failure with reduced ejection fraction: Code(s): I50.20 - Unspecified systolic (congestive) heart failure Status: Acute (3) Chest pain: Code(s): R07.9 - Chest pain, unspecified Status: Acute (4) Acute non-ST elevation myocardial infarction (NSTEMI): Code(s): I21.4 - Non-ST elevation (NSTEMI) myocardial infarction Status: Acute (5) Cerebrovascular accident: Code(s): I63.9 - Cerebral infarction, unspecified Status: Acute (6) Chronic obstructive pulmonary disease: Code(s): J44.9 - Chronic obstructive pulmonary disease, unspecified Status: Acute (7) Obstructive sleep apnea of adult: Code(s): G47.33 - Obstructive sleep apnea (adult) (pediatric) Status: Acute Plan Chest pain: Code(s): R07.9 - Chest pain, unspecified Status: Acute Assessment and Plan: Patient presented with chest pain, Upon arrival, patient found elevated troponin, EKG showed T-wave inversion V4 to V6 Suspecting NSTEMI Underwent cardiac catheterization yesterday Continue aspirin, 81 mg daily p.o., Lipitor 80 mg daily p.o., Imdur 30 mg daily p.o. 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 * May be related to underlying congestive heart failure. * Repeat level this AM. Heart failure with reduced ejection fraction: Code(s): I50.20 - Unspecified systolic (congestive) heart failure Status: Acute Assessment and Plan: Decompensated Continue furosemide 40 mg b.i.d. IV push Chronic obstructive pulmonary disease: Code(s): J44.9 - Chronic obstructive pulmonary disease, unspecified Status: Acute Assessment and Plan: * Clinically stable Pulmonary nodule: Code(s): R91.1 - Solitary pulmonary nodule Status: Acute Assessment and Plan: * Will need ongoing outpatient follow-up with the [place] Rash: Code(s): R21 - Rash and other nonspecific skin eruption Status: Acute Assessment and Plan: * Chronic. Biopsy results pending. * Benadryl no help earlier this morning. * Trial Ativan 0.5 mg x 1 dose. Obstructive sleep apnea of adult: Code(s): G47.33 - Obstructive sleep apnea (adult) (pediatric) Status: Acute Assessment and Plan: * AutoPAP while sleeping until family can bring in home machine. Subjective Date/time seen: 08/13/24 07:22 Interval history: I saw examined patient today in presents of patient's nurse. Patient denies chest pain, shortness breath, headache, palpitation, abdomen pain, focal weakness, or pain of lower extremity Patient is afebrile, blood pressure stable, pulse ox 98% room air. Patient underwent cardiac catheterization yesterday Exam Narrative: GENERAL: Pleasant, in no acute distress. Well-nourished. - EYES: EOMI. Anicteric. - HENT: Moist mucous membranes. - LUNGS: Coarse breath sound bilateral base, no wheezing, rhonchi, or rales. - CARDIOVASCULAR: Regular rate and rhyth m. No murmur. No JVD. - ABDOMEN: Soft, non-tender and non-dist ended. No palpable masses. - EXTREMITIES: No hematoma at right wri st. No edema. Peripheral pulses 2+. Non-tender. - NEUROLOGIC: No focal neurological defi cits. CN II-XII grossly intact. - PSYCHIATRIC: Awake, Alert and oriented x 3. Appropriate mood and affect. - SKIN: No rashes or lesions. Warm. - LYMPH: No cervical lymphadenopathy. Objective Data Vital Signs Vital Signs: Vital Signs - 24 hr 08/12/24 08:00 08/12/24 08:00 08/12/24 10:00 Temperature 97.7 F Pulse Rate 59 L 58 L 55 L Pulse Rate [Right Radial Palpation] Respiratory Rate 16 Blood Pressure 141/89 H Pulse Oximetry 98 Oxygen Delivery Oxygen Flow Rate 08/12/24 11:56 08/12/24 12:00 08/12/24 12:00 Temperature 97.8 F Pulse Rate 56 L Pulse Rate [Right Radial Palpation] Respiratory Rate 20 Blood Pressure 129/74 Pulse Oximetry 97 Oxygen Delivery Room Air Room Air Oxygen Flow Rate 08/12/24 12:00 08/12/24 15:01 08/12/24 15:01 Temperature Pulse Rate 57 L 51 L 52 L Pulse Rate [Right Radial Palpation] Respiratory Rate 12 Blood Pressure 151/99 H Pulse Oximetry 96 Oxygen Delivery Oxygen Flow Rate 08/12/24 15:01 08/12/24 15:14 08/12/24 15:29 Temperature 97.5 F L Pulse Rate 55 L 55 L Pulse Rate [Right Radial Palpation] Respiratory Rate 13 17 Blood Pressure 144/97 H 153/103 H Pulse Oximetry 96 95 93 Oxygen Delivery Room Air Oxygen Flow Rate 08/12/24 15:44 08/12/24 15:44 08/12/24 15:59 Temperature 97.7 F Pulse Rate 50 L 52 L Pulse Rate [Right Radial Palpation] Respiratory Rate 15 17 Blood Pressure 147/95 H 147/95 H Pulse Oximetry 99 79 L 96 Oxygen Delivery Nasal Cannula Oxygen Flow Rate 2 08/12/24 16:00 08/12/24 16:00 08/12/24 16:29 Temperature Pulse Rate 53 L 46 L Pulse Rate [Right Radial Palpation] Respiratory Rate 15 14 Blood Pressure 159/93 H Pulse Oximetry 99 93 Oxygen Delivery Nasal Cannula Oxygen Flow Rate 2 08/12/24 16:59 08/12/24 17:59 08/12/24 18:00 Temperature Pulse Rate 54 L 49 L 50 L Pulse Rate [Right Radial Palpation] Respiratory Rate 16 11 L Blood Pressure 158/92 H 154/96 H Pulse Oximetry 95 97 Oxygen Delivery Oxygen Flow Rate 08/12/24 18:00 08/12/24 19:00 08/12/24 19:33 Temperature Pulse Rate 52 L 48 L Pulse Rate [Right Radial Palpation] 54 L Respiratory Rate 10 L 12 Blood Pressure 147/100 H 152/85 H Pulse Oximetry 98 96 Oxygen Delivery Oxygen Flow Rate 08/12/24 20:00 08/12/24 20:00 08/12/24 20:00 Temperature Pulse Rate 49 L 52 L 52 L Pulse Rate [Right Radial Palpation] Respiratory Rate 20 10 L Blood Pressure 158/102 H Pulse Oximetry 96 97 Oxygen Delivery Nasal Cannula Oxygen Flow Rate 2 08/12/24 20:33 08/12/24 21:00 08/12/24 21:10 Temperature Pulse Rate 55 L 54 L Pulse Rate [Right Radial Palpation] 52 L Respiratory Rate 22 H Blood Pressure 149/108 H Pulse Oximetry 93 Oxygen Delivery Oxygen Flow Rate 08/12/24 23:46 08/12/24 23:49 08/13/24 00:00 Temperature 97.5 F L Pulse Rate 47 L 47 L Pulse Rate [Right Radial Palpation] Respiratory Rate 16 Blood Pressure 141/86 H Pulse Oximetry 99 97 Oxygen Delivery Nasal Cannula Oxygen Flow Rate 2 08/13/24 01:00 08/13/24 02:00 08/13/24 03:46 Temperature Pulse Rate 54 L 45 L Pulse Rate [Right Radial Palpation] Respiratory Rate Blood Pressure Pulse Oximetry 98 Oxygen Delivery Nasal Cannula Oxygen Flow Rate 2 08/13/24 04:00 08/13/24 04:00 Temperature 97.9 F Pulse Rate 45 L 59 L Pulse Rate [Right Radial Palpation] Respiratory Rate 20 Blood Pressure 129/72 Pulse Oximetry 98 Oxygen Delivery Oxygen Flow Rate Intake/Output Intake/Output: Intake & Output 08/10/24 08/11/24 08/12/24 08/13/24 23:59 23:59 23:59 23:59 Intake Total 413.4 48.8 Output Total 550 Balance 413.4 -501.2 Meds/Results Medications: Active Medications Generic Name Dose Route Start Last Admin Trade Name Freq PRN Reason Stop Dose Admin Acetaminophen 650 mg 08/12/24 06:51 Acetaminophen 325 Mg Tablet PO Q6H PRN Mild Pain (1-3) or Fever Aspirin 81 mg 08/13/24 09:00 Aspirin 81 Mg Enteric [facility] [place] Atorvastatin Calcium 80 mg 08/13/24 09:00 Atorvastatin 40 Mg Tablet PO DAILY [facility] Furosemide 40 mg 08/13/24 09:00 Furosemide Inj 40 Mg/4 Ml Vial IV PUSH BID [facility] Heparin Sodium (Porcine) 4,000 units 08/12/24 16:22 08/13/24 02:00 Heparin Sodium 5,000 Units/Ml Vial IV PUSH 4,000 units PRN PRN Administration aPTT less than 55 seconds Heparin Sodium (Porcine) 3,500 units 08/12/24 16:22 Heparin Sodium 5,000 Units/Ml Vial IV PUSH PRN PRN aPTT 55 - 70 seconds Isosorbide Mononitrate 30 mg 08/13/24 09:00 Isosorbide Mononitrate 30 Mg Tab.Er.24h [facility] [place] Metoprolol Tartrate 25 mg 08/12/24 21:00 08/12/24 21:10 Metoprolol Tartrate 25 Mg Tablet PO 25 mg Q12HR [facility] Administration Morphine Sulfate 4 mg 08/12/24 06:51 08/12/24 07:06 Morphine Sulfate (*Crx) 2 Mg/Ml Inj IV PUSH 4 mg Q4H PRN Administration Pain Rated 7-10 Nitroglycerin 0.4 mg 08/12/24 12:16 08/12/24 12:32 Nitroglycerin Sl 0.4 Mg Tablet SUBLINGUAL 0.4 mg Q5MIN PRN Administration Chest Pain Perflutren Lipid Microsphere 0 ml 08/12/24 04:17 Perflutren Lipid Microspheres 1.5 Ml Vial Diluted To 10 Ml Total Volume IV PUSH 08/15/24 04:18 ONCE PRN adequate visualization Protocol Radiology Results: ITS Impressions Chest/Abdomen/Pelvis CTA 08/12/24 06:30 Impression: No acute abnormalities seen. 7 mm and 8 mm right lung pulmonary nodules, as above. According to Fleischner Society criteria, for a low-risk patient, follow-up CT scan in 3-6 months recommended, then consider additional 18-[address] A high-risk patients, follow-up CT scans at both 3-6 months and 18-24 months are recommended. No significant abnormality in the abdomen or pelvis. Head CT 08/12/24 06:43 Impression: No significant abnormality seen. Chest X-Ray 08/12/24 06:53 Impression: Clear lungs. Probable cardiomegaly. Labs Labs: Laboratory Results - last 24 hr 08/12/24 08/12/24 08/12/24 09:53 10:55 16:36 WBC 6.1 RBC 4.46 L Hgb 12.5 L Hct 38.4 L MCV 86.1 MCH 28.0 MCHC 32.6 RDW 14.5 Plt Count 184 MPV 11.7 H Immature Gran % (Auto) 0.2 Neut % (Auto) 59.1 Lymph % (Auto) 23.5 Major % (Auto) 9.1 H Eos % (Auto) 6.0 H Baso % (Auto) 2.1 H Lymph # (Auto) 1.42 Major # (Auto) 0.6 Eos # (Auto) 0.4 H Baso # (Auto) 0.1 Abs Immat Gran (auto) 0.01 Absolute Neuts (auto) 3.6 Absolute Nucleated RBC 0.000 Nucleated RBC % 0.0 PT 16.2 H INR 1.3 APTT 76.0 H 75.8 H Troponin I 0.081 H* 08/13/24 00:59 WBC RBC Hgb Hct MCV MCH MCHC RDW Plt Count MPV Immature Gran % (Auto) Neut % (Auto) Lymph % (Auto) Major % (Auto) Eos % (Auto) Baso % (Auto) Lymph # (Auto) Major # (Auto) Eos # (Auto) Baso # (Auto) Abs Immat Gran (auto) Absolute Neuts (auto) Absolute Nucleated RBC Nucleated RBC % PT INR APTT 45.3 H Troponin I
[2024-08-13 09:24] LABS: Basophils Absolute Auto 0.1 K/mm3 (0.0-0.1); Basophils Percent Auto 1.1 % (0.2-1.2); Eosinophils Absolute Auto 0.1 K/mm3 (0-0.3); Eosinophils Percent Auto 1.6 % (0-4.4); Hematocrit 40.7 % (42.0-52.0); Hemoglobin 13.2 g/dL (14.0-18.0); Immature Granulocyte Absolute 0.02 K/mm3 (0.00-0.031); Immature Granulocyte Percent A 0.2 % (0-0.5); Lymphocytes Absolute Auto 0.82 K/mm3 (0.9-3.2); Lymphocytes Percent Auto 9.2 % (18.3-44.2); Mean Corpuscular HGB Conc 32.4 g/dl (32-36); Mean Corpuscular Volume 86.4 fl (80-100); Mean Platelet Volume 11.1 fl (7.4-10.4); Monocytes Absolute Auto 0.6 K/mm3 (0.1-0.6); Monocytes Percent Auto 6.5 % (2.6-8.5); Neutrophils Absolute Auto 7.2 K/mm3 (1.3-6.7); Neutrophils Percent Auto 81.4 % (45.5-73.1); Platelet Count Result 201 k/mm3 (150-375); Red Blood Count 4.71 M/mm3 (4.6-6.20); Red Cell Distribution Width 14.2 % (11.5-14.5); White Blood Count 8.9 K/mm3 (4.5-10.0)
[2024-08-13 09:34] LABS: Anion Gap 7 mmol/L (4-12); Blood Urea Nitrogen 17 mg/dL (9-20); Calcium 8.4 mg/dL (8.4-10.2); Carbon Dioxide 27 mmol/L (22-30); Chloride 106 mmol/L (98-107); Estimated CRCL calculation 97 ml/min; Estimated Glomerular Filt Rate > 60; Glucose 91 mg/dL (65-110); Magnesium 1.9 mg/dL (1.6-2.3); Potassium 3.7 mmol/L (3.4-5.0); Sodium 140 mmol/L (137-145)
[2024-08-13 09:39] LABS: Partial Thromboplastin Time 66.8 Seconds (22.3-36.8)
[2024-08-13] MEDS: ISOSORBIDE MONONITRATE 30 MG TAB.ER.24H PO (09:50)
[2024-08-13] MEDS: FUROSEMIDE INJ 40 MG/4 ML VIAL IV PUSH ×2 (09:50→16:51)
[2024-08-13] MEDS: METOPROLOL TARTRATE 25 MG TABLET PO ×2 (09:50→20:24)
[2024-08-13] MEDS: ASPIRIN 81 MG ENTERIC TABLET PO (09:50)
[2024-08-13] MEDS: ATORVASTATIN 40 MG TABLET 80 MG PO (09:50)
--- NOTE | 2024-08-13 10:18 | P.PNCA_ITS ---
Progress Note: A&P Assessment and Plan (1) Acute non-ST elevation myocardial infarction (NSTEMI): Code(s): I21.4 - Non-ST elevation (NSTEMI) myocardial infarction Status: Acute (2) Chest pain: Code(s): R07.9 - Chest pain, unspecified Status: Acute Plan NSTEMI-type 2 Non obstructive CAD Elevated LVEDP of 35 Plan: Medical management for CAD with aspirin, statin, metoprolol Heparin drip has been discontinued Continue Imdur 60 mg daily (home medication) Maintain SBP greater than 120 mm Hg and avoid hypotension Diureses with Lasix 40 mg IV b.i.d. while in the hospital given elevated LVEDP. Discharge on furosemide 40mg p.o. daily. Await TTE results, if study unremarkable he can be discharged today from a cardiac perspective. Subjective Date/time seen: 08/13/24 10:18 Interval history: Cardiology follow up for CAD, HFrEF 08/13/2024: Found to have NOCAD, large ectatic vessels with slow flow. He feels well today and denies and recurrence of chest pain. Denies shortness of breath, palpitations. Review of Systems Review of Systems: Complete review of systems was performed and negative other than those mentioned in HPI Exam Const: General: comfortable, no acute distress, alert and awake Orientation/consciousness: patient oriented x3 HENMT: Head: normal to inspection Eyes: General: appearance normal, both eyes and all related structures Pupils: Equal, round and reactive pupils present Neck: Neck: normal visual inspection, supple and no JVD Carotids: normal carotid upstroke Resp: Effort & Inspection: normal respiratory effort Auscultation: clear to auscultation bilaterally Cardio: Rate: regular rate Rhythm: regular rhythm Heart sounds: S1 normal heart sound present, S2 normal heart sound present and no murmurs GI: Auscultation: normal bowel sounds Skin: General skin exam: normal color Neuro: General: patient oriented x3 Cranial nerves: Yes Equal, round and reactive pupils present Extrem: General: normal to inspection Other: R radial arterial access site free from bleeding, hematoma. Arm board remains in place. Psych: Appearance: grossly normal Mental Status: mental status grossly normal Objective Data Vital Signs Vital Signs: Vital Signs - 24 hr 08/12/24 11:56 08/12/24 12:00 08/12/24 12:00 Temperature 36.6 C Pulse Rate 56 L Pulse Rate [Right Radial Palpation] Respiratory Rate 20 Blood Pressure 129/74 Pulse Oximetry 97 Oxygen Delivery Room Air Room Air Oxygen Flow Rate 08/12/24 12:00 08/12/24 15:01 08/12/24 15:01 Temperature Pulse Rate 57 L 51 L 52 L Pulse Rate [Right Radial Palpation] Respiratory Rate 12 Blood Pressure 151/99 H Pulse Oximetry 96 Oxygen Delivery Oxygen Flow Rate 08/12/24 15:01 08/12/24 15:14 08/12/24 15:29 Temperature 36.4 C L Pulse Rate 55 L 55 L Pulse Rate [Right Radial Palpation] Respiratory Rate 13 17 Blood Pressure 144/97 H 153/103 H Pulse Oximetry 96 95 93 Oxygen Delivery Room Air Oxygen Flow Rate 08/12/24 15:44 08/12/24 15:44 08/12/24 15:59 Temperature 36.5 C Pulse Rate 50 L 52 L Pulse Rate [Right Radial Palpation] Respiratory Rate 15 17 Blood Pressure 147/95 H 147/95 H Pulse Oximetry 99 79 L 96 Oxygen Delivery Nasal Cannula Oxygen Flow Rate 2 08/12/24 16:00 08/12/24 16:00 08/12/24 16:29 Temperature Pulse Rate 53 L 46 L Pulse Rate [Right Radial Palpation] Respiratory Rate 15 14 Blood Pressure 159/93 H Pulse Oximetry 99 93 Oxygen Delivery Nasal Cannula Oxygen Flow Rate 2 08/12/24 16:59 08/12/24 17:59 08/12/24 18:00 Temperature Pulse Rate 54 L 49 L 50 L Pulse Rate [Right Radial Palpation] Respiratory Rate 16 11 L Blood Pressure 158/92 H 154/96 H Pulse Oximetry 95 97 Oxygen Delivery Oxygen Flow Rate 08/12/24 18:00 08/12/24 19:00 08/12/24 19:33 Temperature Pulse Rate 52 L 48 L Pulse Rate [Right Radial Palpation] 54 L Respiratory Rate 10 L 12 Blood Pressure 147/100 H 152/85 H Pulse Oximetry 98 96 Oxygen Delivery Oxygen Flow Rate 08/12/24 20:00 08/12/24 20:00 08/12/24 20:00 Temperature Pulse Rate 49 L 52 L 52 L Pulse Rate [Right Radial Palpation] Respiratory Rate 20 10 L Blood Pressure 158/102 H Pulse Oximetry 96 97 Oxygen Delivery Nasal Cannula Oxygen Flow Rate 2 08/12/24 20:33 08/12/24 21:00 08/12/24 21:10 Temperature Pulse Rate 55 L 54 L Pulse Rate [Right Radial Palpation] 52 L Respiratory Rate 22 H Blood Pressure 149/108 H Pulse Oximetry 93 Oxygen Delivery Oxygen Flow Rate 08/12/24 23:46 08/12/24 23:49 08/13/24 00:00 Temperature 36.4 C L Pulse Rate 47 L 47 L Pulse Rate [Right Radial Palpation] Respiratory Rate 16 Blood Pressure 141/86 H Pulse Oximetry 99 97 Oxygen Delivery Nasal Cannula Oxygen Flow Rate 2 08/13/24 01:00 08/13/24 02:00 08/13/24 03:46 Temperature Pulse Rate 54 L 45 L Pulse Rate [Right Radial Palpation] Respiratory Rate Blood Pressure Pulse Oximetry 98 Oxygen Delivery Nasal Cannula Oxygen Flow Rate 2 08/13/24 04:00 08/13/24 04:00 08/13/24 08:02 Temperature 36.6 C 36.7 C Pulse Rate 45 L 59 L 58 L Pulse Rate [Right Radial Palpation] Respiratory Rate 20 14 Blood Pressure 129/72 162/92 H Pulse Oximetry 98 98 Oxygen Delivery Oxygen Flow Rate 08/13/24 09:50 Temperature Pulse Rate 60 Pulse Rate [Right Radial Palpation] Respiratory Rate Blood Pressure Pulse Oximetry Oxygen Delivery Oxygen Flow Rate Intake/Output Intake/Output: Intake & Output 08/10/24 08/11/24 08/12/24 08/13/24 23:59 23:59 23:59 23:59 Intake Total 413.4 87.8 Output Total 550 Balance 413.4 -462.2 Meds/Results Medications: Active Medications Generic Name Dose Route Start Last Admin Trade Name Tomi PRN Reason Stop Dose Admin Acetaminophen 650 mg 08/12/24 06:51 Acetaminophen 325 Mg Tablet PO Q6H PRN Mild Pain (1-3) or Fever Aspirin 81 mg 08/13/24 09:00 08/13/24 09:50 Aspirin 81 Mg Enteric Tablet PO 81 mg QAM FAWAD Administration Atorvastatin Calcium 80 mg 08/13/24 09:00 08/13/24 09:50 Atorvastatin 40 Mg Tablet PO 80 mg DAILY FAWAD Administration Furosemide 40 mg 08/13/24 09:00 08/13/24 09:50 Furosemide Inj 40 Mg/4 Ml Vial IV PUSH 40 mg BID FAWAD Administration Heparin Sodium (Porcine) 4,000 units 08/12/24 16:22 08/13/24 02:00 Heparin Sodium 5,000 Units/Ml Vial IV PUSH 4,000 units PRN PRN Administration aPTT less than 55 seconds Heparin Sodium (Porcine) 3,500 units 08/12/24 16:22 Heparin Sodium 5,000 Units/Ml Vial IV PUSH PRN PRN aPTT 55 - 70 seconds Isosorbide Mononitrate 30 mg 08/13/24 09:00 08/13/24 09:50 Isosorbide Mononitrate 30 Mg Tab.Er.24h PO 30 mg QAM FAWAD Administration Metoprolol Tartrate 25 mg 08/12/24 21:00 08/13/24 09:50 Metoprolol Tartrate 25 Mg Tablet PO 25 mg Q12HR FAWAD Administration Morphine Sulfate 4 mg 08/12/24 06:51 08/12/24 07:06 Morphine Sulfate (*Crx) 2 Mg/Ml Inj IV PUSH 4 mg Q4H PRN Administration Pain Rated 7-10 Nitroglycerin 0.4 mg 08/12/24 12:16 08/12/24 12:32 Nitroglycerin Sl 0.4 Mg Tablet SUBLINGUAL 0.4 mg Q5MIN PRN Administration Chest Pain Perflutren Lipid Microsphere 0 ml 08/12/24 04:17 Perflutren Lipid Microspheres 1.5 Ml Vial Diluted To 10 Ml Total Volume IV PUSH 08/15/24 04:18 ONCE PRN adequate visualization Protocol Radiology Results: ITS Impressions Chest/Abdomen/Pelvis CTA 08/12/24 06:30 Impression: No acute abnormalities seen. 7 mm and 8 mm right lung pulmonary nodules, as above. According to Fleischner Society criteria, for a low-risk patient, follow-up CT scan in 3-6 months recommended, then consider additional 18-[address] A high-risk patients, follow-up CT scans at both 3-6 months and 18-24 months are recommended. No significant abnormality in the abdomen or pelvis. Head CT 08/12/24 06:43 Impression: No significant abnormality seen. Chest X-Ray 08/12/24 06:53 Impression: Clear lungs. Probable cardiomegaly. Labs Labs: Laboratory Results - last 24 hr 08/12/24 08/12/24 08/12/24 09:53 10:55 16:36 WBC 6.1 RBC 4.46 L Hgb 12.5 L Hct 38.4 L MCV 86.1 MCH 28.0 MCHC 32.6 RDW 14.5 Plt Count 184 MPV 11.7 H Immature Gran % (Auto) 0.2 Neut % (Auto) 59.1 Lymph % (Auto) 23.5 B[place] % (Auto) 9.1 H Eos % (Auto) 6.0 H Baso % (Auto) 2.1 H Lymph # (Auto) 1.42 [place] # (Auto) 0.6 Eos # (Auto) 0.4 H Baso # (Auto) 0.1 Abs Immat Gran (auto) 0.01 Absolute Neuts (auto) 3.6 Absolute Nucleated RBC 0.000 Nucleated RBC % 0.0 PT 16.2 H INR 1.3 APTT 76.0 H 75.8 H Sodium Potassium Chloride Carbon Dioxide Anion Gap BUN Creatinine Estim Creat Clear Calc Estimated GFR Glucose Calcium Magnesium Troponin I 0.081 H* 08/13/24 08/13/24 00:59 09:17 WBC 8.9 RBC 4.71 Hgb 13.2 L Hct 40.7 L MCV 86.4 MCH 28.0 MCHC 32.4 RDW 14.2 Plt Count 201 MPV 11.1 H Immature Gran % (Auto) 0.2 Neut % (Auto) 81.4 H Lymph % (Auto) 9.2 L [place] % (Auto) 6.5 Eos % (Auto) 1.6 Baso % (Auto) 1.1 Lymph # (Auto) 0.82 L [place] # (Auto) 0.6 Eos # (Auto) 0.1 Baso # (Auto) 0.1 Abs Immat Gran (auto) 0.02 Absolute Neuts (auto) 7.2 H Absolute Nucleated RBC 0.000 Nucleated RBC % 0.0 PT INR APTT 45.3 H 66.8 H Sodium 140 Potassium 3.7 Chloride 106 Carbon Dioxide 27 Anion Gap 7 BUN 17 Creatinine 0.82 Estim Creat Clear Calc 97 Estimated GFR > 60 Glucose 91 Calcium 8.4 Magnesium 1.9 Troponin I Quality VTE Prophylaxis VTE prophylaxis: pharmacologic ordered (on heparin drip)
[2024-08-13] MEDS: PERFLUTREN LIPID MICROSPHERES 1.5 ML VIAL DILUTED TO 10 ML TOTAL VOLUME IV PUSH (13:42)
[2024-08-13 15:58] LABS: Cholesterol 172 mg/dL (0-200); HDL Direct 36 mg/dL; Triglycerides 82 mg/dL (<150)
[2024-08-13 16:09] LABS: LDL Cholesterol Direct 126 mg/dL
--- NOTE | 2024-08-13 16:56 | IVDEFINITY ---
Prior to administration of IV Definity the patient was educated on the risks and benefits of the imaging enhancing agent including potential adverse side effects. The patient verbalized understanding. Allergies were verified. No exclusion criteria were identified and at least one of the following inclusion criteria were met: 1) physician request, 2) patient technically difficult to image (per the [place] [employer] guidelines of two or more segments not discernable within the apical view), or 3) questionable left ventricular function. ?
--- NOTE | 2024-08-13 18:07 | PM.EVENT ---
Event Note Event Note Event Note: Nurse called me about patient having confusion whstacey she said was charted at 3pm yesterday, however today family member called the station that patient was not making sense on the phone. For this i ordered CT head which came back positive for acute stroke in [place] left frontal adn parietal lobes, which was not present on 08/12 on the day of admission. Stat CTA head and neck was done which showed complete occlusion of M2 middle cerebral artery which resulted at 1620. I immediately called [facility] stroke center and spoke with Dr George. At bedside patient was having expressive aphasia, no physical weakness and he was eating his lunch by himself. Dr George after evaluation over the phone noted that patient is not a candidate for thrombectomy for two reasons: - Minor deficits - more than 24 hours since onset of recorded symptoms Thus patient was continue on Apsirin and Lipitor ECHO, MRI brain, Lipid profile, A1c PT/OT/ST Neurology consulted continue telemetry monitoring Signed out to primary team.
[2024-08-14] VITALS (19 sets, daily range): BP systolic 135–186; BP diastolic 74–99; PULSE 50–78; RESP 16–22; TEMP 36.6–36.9; O2SAT 98–100
--- NOTE | 2024-08-14 | ECHO_ITS ---
Patient Info Name: Isaias Qureshi Age: 69 years : 1955 Gender: Male Ht: 71 in Wt: 245 lbs BSA: 2.40 m2 HR: 58 bpm BP: 174 / 96 mmHg Technical Quality: Good Exam Date: 08/14/2024 11:10 AM Exam Location: Echo Lab Patient Status: Inpatient Admit Date: 08/12/2024 Staff Ordering Physician: Yasmine Noe MD Frame Cleaner: Laurence Combs RDCS Attending Provider: Yasmine Noe MD Exam Type: CA echo limited w bubble study Study Info Indications - ISCHEMIC STRIKE Limited two-dimensional transthoracic echocardiogram is performed with agitated saline. Contrast/Agitated Saline Contrast/Ag. Saline: Agitated Saline Amount: 20.00 ml Administered By: Laurence Combs RDCS Existing IV Access: Yes Summary 1. This was a limited study for bubble study. 2. Intact interatrial septum visualized by agitated saline imaging. Negative bubble study. Atrial Septum Intact interatrial septum visualized by agitated saline imaging. Negative bubble study. Report Signatures
[2024-08-14 04:40] LABS: Alanine Aminotransferase 13 U/L (6-50); Albumin Level 3.8 g/dL (3.5-5.1); Alkaline Phosphatase 106 U/L (38-126); Anion Gap 6 mmol/L (4-12); Aspartate Amino Transferase 20 U/L (17-59); Bilirubin,Total 1.2 mg/dL (0.2-1.3); Blood Urea Nitrogen 18 mg/dL (9-20); Calcium 8.6 mg/dL (8.4-10.2); Carbon Dioxide 30 mmol/L (22-30); Chloride 103 mmol/L (98-107); Estimated CRCL calculation 88 ml/min; Estimated Glomerular Filt Rate > 60; Glucose 94 mg/dL (65-110); Potassium 3.1 mmol/L (3.4-5.0); Sodium 139 mmol/L (137-145)
[2024-08-14 04:42] LABS: Basophils Absolute Auto 0.1 K/mm3 (0.0-0.1); Eosinophils Absolute Auto 0.2 K/mm3 (0-0.3); Eosinophils Percent Auto 2.3 % (0-4.4); Hemoglobin 13.7 g/dL (14.0-18.0); Immature Granulocyte Absolute 0.02 K/mm3 (0.00-0.031); Immature Granulocyte Percent A 0.3 % (0-0.5); Lymphocytes Absolute Auto 1.22 K/mm3 (0.9-3.2); Lymphocytes Percent Auto 15.4 % (18.3-44.2); Mean Corpuscular HGB Conc 33.4 g/dl (32-36); Mean Corpuscular Hemoglobin 28.2 pg (26-34); Mean Corpuscular Volume 84.5 fl (80-100); Mean Platelet Volume 11.6 fl (7.4-10.4); Monocytes Absolute Auto 0.8 K/mm3 (0.1-0.6); Monocytes Percent Auto 10.4 % (2.6-8.5); Neutrophils Absolute Auto 5.6 K/mm3 (1.3-6.7); Neutrophils Percent Auto 70.6 % (45.5-73.1); Platelet Count Result 204 k/mm3 (150-375); Red Blood Count 4.85 M/mm3 (4.6-6.20); White Blood Count 7.9 K/mm3 (4.5-10.0)
--- NOTE | 2024-08-14 08:03 | PM.IMPN ---
Progress Note: A&P Assessment and Plan (1) Hypertension: Code(s): I10 - Essential (primary) hypertension Status: Acute (2) Heart failure with reduced ejection fraction: Code(s): I50.20 - Unspecified systolic (congestive) heart failure Status: Acute (3) Chest pain: Code(s): R07.9 - Chest pain, unspecified Status: Acute (4) Acute non-ST elevation myocardial infarction (NSTEMI): Code(s): I21.4 - Non-ST elevation (NSTEMI) myocardial infarction Status: Acute (5) Cerebrovascular accident: Code(s): I63.9 - Cerebral infarction, unspecified Status: Acute (6) Chronic obstructive pulmonary disease: Code(s): J44.9 - Chronic obstructive pulmonary disease, unspecified Status: Acute (7) Obstructive sleep apnea of adult: Code(s): G47.33 - Obstructive sleep apnea (adult) (pediatric) Status: Acute (8) Acute ischemic stroke: Code(s): I63.9 - Cerebral infarction, unspecified Status: Acute Plan Chest pain: Code(s): R07.9 - Chest pain, unspecified Status: Acute Assessment and Plan: Patient presented with chest pain Upon arrival, patient found elevated troponin, EKG showed T-wave inversion V4 to V6 Suspecting NSTEMI Underwent cardiac catheterization 08/12. patent coronary arteries per city designer report. Continue aspirin, 81 mg daily p.o., Lipitor 80 mg daily p.o., Imdur 30 mg daily p.o. For the management per city designer Heart failure with reduced ejection fraction: Code(s): I50.20 - Unspecified systolic (congestive) heart failure Status: Acute Assessment and Plan: Decompensated Continue furosemide 40 mg b.i.d. IV push Acute CVA Patient was noticed confused yesterday afternoon. CT head 08/13: Acute infarcts in the left frontal and parietal lobes, not visible on 08/12/2024. CTA head and neck 08/13: Total occlusion of two left M2 middle cerebral artery branches. Dr. Noe called [facility] stroke center and spoke with Dr George will consider patient is not candidate from thrombectomy repeated echo 08/13: Intact interatrial septum visualized by color flow imaging. No intramural thrombosis or vegetation were found Patient is on aspirin 81 mg daily p.o. and Lipitor, add Plavix 75 mg daily p.o. Pending neurologist consultation Chronic obstructive pulmonary disease: Code(s): J44.9 - Chronic obstructive pulmonary disease, unspecified Status: Acute Assessment and Plan: Clinically stable Pulmonary nodule: Code(s): R91.1 - Solitary pulmonary nodule Status: Acute Assessment and Plan: Will need ongoing outpatient follow-up with the [facility] Rash: Code(s): R21 - Rash and other nonspecific skin eruption Status: Acute Assessment and Plan: Chronic. Biopsy of chest rash was done, results pending. Obstructive sleep apnea of adult: Code(s): G47.33 - Obstructive sleep apnea (adult) (pediatric) Status: Acute Assessment and Plan: AutoPAP while sleeping until family can bring in home machine. Subjective Date/time seen: 08/14/24 08:03 Interval history: I saw and examined the patient in presents of patient's and patient's nurse in the room. Patient was noticed confused yesterday afternoon, CT scan was done, that showed acute stroke. The on-call hospitalist has reached out to [facility] neurologist, they recommended no thrombolysis. When I and examined the patient today, patient is confused compared to yesterday, patient is able to engage in conversation, without 3 speech, but patient is not oriented to the place and time, but patient know his 's name. Patient is able to hold both arms without drifting, and also able to hold both legs up. Patient denies headache, vision change, palpitation, chest pain, abdomen pain, nausea vomiting. Blood pressure is not well controlled, pulse ox 99 on room air, patient is afebrile. Labs reviewed Exam Narrative: GENERAL: Pleasant, in no acute distress. Well-nourished. - EYES: EOMI. Anicteric. - HENT: Moist mucous membranes. - LUNGS: Clear to auscultation bilaterally, no wheezing, rhonchi, or rales. - CARDIOVASCULAR: Regular rate and rhythm. No murmur. No JVD. - ABDOMEN: Soft, non-tender and non-distended. No palpable masses. - EXTREMITIES: No edema. Peripheral pulses 2+. Non-tender. - NEUROLOGIC: No focal neurological deficits. CN II-XII grossly intact. - PSYCHIATRIC: Awake, Alert and not oriented x 3, patient knows his 's name Appropriate mood and affect. - LYMPH: No cervical lymphadenopathy. Objective Data Vital Signs Vital Signs: Vital Signs - 24 hr 08/13/24 09:50 08/13/24 10:00 08/13/24 11:29 Temperature 98.2 F Pulse Rate 60 66 54 L Respiratory Rate 18 Blood Pressure 154/91 H Pulse Oximetry 97 Oxygen Delivery 08/13/24 12:00 08/13/24 12:00 08/13/24 14:00 Temperature Pulse Rate 66 63 54 L Respiratory Rate 14 Blood Pressure Pulse Oximetry 98 Oxygen Delivery Room Air 08/13/24 16:00 08/13/24 16:00 08/13/24 16:00 Temperature 97.9 F Pulse Rate 55 L 55 L 77 Respiratory Rate 18 18 Blood Pressure 151/84 H Pulse Oximetry 98 98 Oxygen Delivery Room Air 08/13/24 18:00 08/13/24 20:00 08/13/24 20:00 Temperature 98.6 F Pulse Rate 63 59 L Respiratory Rate 16 Blood Pressure 158/87 H Pulse Oximetry 95 Oxygen Delivery Room Air 08/13/24 20:00 08/13/24 20:24 08/13/24 22:00 Temperature Pulse Rate 59 L 61 58 L Respiratory Rate Blood Pressure Pulse Oximetry Oxygen Delivery 08/14/24 00:00 08/14/24 00:00 08/14/24 00:00 Temperature 98.5 F Pulse Rate 55 L 56 L Respiratory Rate 16 Blood Pressure 159/88 H Pulse Oximetry 100 Oxygen Delivery Room Air 08/14/24 02:00 08/14/24 04:00 08/14/24 04:00 Temperature Pulse Rate 57 L 50 L Respiratory Rate Blood Pressure Pulse Oximetry Oxygen Delivery Room Air 08/14/24 04:00 08/14/24 06:00 08/14/24 06:29 Temperature 98.1 F Pulse Rate 54 L 59 L 62 Respiratory Rate 16 Blood Pressure 174/96 H Pulse Oximetry 99 Oxygen Delivery Intake/Output Intake/Output: Intake & Output 08/11/24 08/12/24 08/13/24 08/14/24 23:59 23:59 23:59 23:59 Intake Total 413.4 567.8 100 Output Total 3925 Balance 413.4 -3357.2 100 Meds/Results Medications: Active Medications Generic Name Dose Route Start Last Admin Trade Name Freq PRN Reason Stop Dose Admin Acetaminophen 650 mg 08/12/24 06:51 Acetaminophen 325 Mg Tablet PO Q6H PRN Mild Pain (1-3) or Fever Aspirin 81 mg 08/13/24 09:00 08/13/24 09:50 Aspirin 81 Mg Enteric Tablet PO 81 mg QAM FAWAD Administration Atorvastatin Calcium 80 mg 08/13/24 09:00 08/13/24 09:50 Atorvastatin 40 Mg Tablet PO 80 mg DAILY FAWAD Administration Furosemide 40 mg 08/13/24 09:00 08/13/24 16:51 Furosemide Inj 40 Mg/4 Ml Vial IV PUSH 40 mg BID FAWAD Administration Isosorbide Mononitrate 30 mg 08/13/24 09:00 08/13/24 09:50 Isosorbide Mononitrate 30 Mg Tab.Er.24h PO 30 mg QAM FAWAD Administration Metoprolol Tartrate 25 mg 08/12/24 21:00 08/13/24 20:24 Metoprolol Tartrate 25 Mg Tablet PO 25 mg Q12HR FAWAD Administration Morphine Sulfate 4 mg 08/12/24 06:51 08/12/24 07:06 Morphine Sulfate (*Crx) 2 Mg/Ml Inj IV PUSH 4 mg Q4H PRN Administration Pain Rated 7-10 Nitroglycerin 0.4 mg 08/12/24 12:16 08/12/24 12:32 Nitroglycerin Sl 0.4 Mg Tablet SUBLINGUAL 0.4 mg Q5MIN PRN Administration Chest Pain Perflutren Lipid Microsphere 0 ml 08/13/24 15:12 Perflutren Lipid Microspheres 1.5 Ml Vial Diluted To 10 Ml Total Volume IV PUSH 08/16/24 15:16 ONCE PRN adequate visualization Protocol Radiology Results: ITS Impressions Chest/Abdomen/Pelvis CTA 08/12/24 06:30 Impression: No acute abnormalities seen. 7 mm and 8 mm right lung pulmonary nodules, as above. According to Fleischner Society criteria, for a low-risk patient, follow-up CT scan in 3-6 months recommended, then consider additional 18-[address] A high-risk patients, follow-up CT scans at both 3-6 months and 18-24 months are recommended. No significant abnormality in the abdomen or pelvis. Chest X-Ray 08/12/24 06:53 Impression: Clear lungs. Probable cardiomegaly. Head CT 08/13/24 15:00 IMPRESSION: 1. Acute infarcts in the left frontal and parietal lobes, not visible on 08/12/2024. 2. Moderate nonspecific cerebral white matter disease, which likely represents chronic small vessel ischemic disease. Head/Neck CTA 08/13/24 16:21 IMPRESSION: 1. Acute infarcts in the left frontal and parietal lobes. 2. Moderate nonspecific cerebral white matter disease, which likely represents chronic small vessel ischemic disease. 3. 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 4. 0% stenosis of the proximal internal carotid arteries relative to normal distal artery lumen diameters (NASCET criteria). Labs Labs: Laboratory Results - last 24 hr 08/13/24 08/13/24 08/14/24 09:14 09:17 04:22 WBC 8.9 7.9 RBC 4.71 4.85 Hgb 13.2 L 13.7 L Hct 40.7 L 41.0 L MCV 86.4 84.5 MCH 28.0 28.2 MCHC 32.4 33.4 RDW 14.2 14.0 Plt Count 201 204 MPV 11.1 H 11.6 H Immature Gran % (Auto) 0.2 0.3 Neut % (Auto) 81.4 H 70.6 Lymph % (Auto) 9.2 L 15.4 L [place] % (Auto) 6.5 10.4 H Eos % (Auto) 1.6 2.3 Baso % (Auto) 1.1 1.0 Lymph # (Auto) 0.82 L 1.22 [place] # (Auto) 0.6 0.8 H Eos # (Auto) 0.1 0.2 Baso # (Auto) 0.1 0.1 Abs Immat Gran (auto) 0.02 0.02 Absolute Neuts (auto) 7.2 H 5.6 Absolute Nucleated RBC 0.000 0.000 Nucleated RBC % 0.0 0.0 APTT 66.8 H Sodium 140 139 Potassium 3.7 3.1 L Chloride 106 103 Carbon Dioxide 27 30 Anion Gap 7 6 BUN 17 18 Creatinine 0.82 0.91 Estim Creat Clear Calc 97 88 Estimated GFR > 60 > 60 Glucose 91 94 Calcium 8.4 8.6 Magnesium 1.9 2.0 Total Bilirubin 1.2 AST 20 ALT 13 Alkaline Phosphatase 106 Total Protein 7.0 Albumin 3.8 Triglycerides 82 Cholesterol 172 LDL Cholesterol Direct 126 HDL Direct 36
[2024-08-14] MEDS: ASPIRIN 81 MG ENTERIC TABLET PO (08:22)
[2024-08-14] MEDS: METOPROLOL TARTRATE 25 MG TABLET PO (08:22)
[2024-08-14] MEDS: ATORVASTATIN 40 MG TABLET 80 MG PO (08:23)
[2024-08-14] MEDS: ISOSORBIDE MONONITRATE 30 MG TAB.ER.24H PO (08:24)
--- NOTE | 2024-08-14 08:30 | PCPTNOTE ---
attempted PT eval, leaving room for MRI 0830, will follow
[2024-08-14] MEDS: CLOPIDOGREL BISULFATE 75 MG TABLET PO (09:23)
[2024-08-14] MEDS: FUROSEMIDE INJ 40 MG/4 ML VIAL IV PUSH (09:24)
[2024-08-14] MEDS: POTASSIUM CHLORIDE 20 MEQ PACKET (FOR LIQUID) 40 MEQ PO (10:29)
--- NOTE | 2024-08-14 10:39 | PCSTNOTE ---
Please refer to the Bedside Swallow Evaluation in the EMR. Please note, silent aspiration cannot be ruled out at bedside.
--- NOTE | 2024-08-14 12:40 | P.CONNEU_ITS ---
Assessment and Plan Assessment and plan (1) Acute ischemic stroke: Code(s): I63.9 - Cerebral infarction, unspecified Status: Acute (2) Acute non-ST elevation myocardial infarction (NSTEMI): Code(s): I21.4 - Non-ST elevation (NSTEMI) myocardial infarction Status: Acute (3) Pulmonary nodule: Code(s): R91.1 - Solitary pulmonary nodule Status: Acute Plan 1. Left frontal and parietal lobe stroke documented abnormal MRI infarct. 2. CTA with total occlusion of the 2 left M2 middle cerebral artery branches. 3. Initial CT scan of the head negative but repeat is positive for the stroke as documented. 4. Patient is receiving aspirin 81mg daily, atorvastatin 80mg daily, clopidogrel 75mg daily, which can be continued as such. 5. Rehab for the stroke. Consult date: 08/14/24 HPI: Isaias Qureshi Jr. is a 69 year old male Admitted to the hospital through the emergency room for the complaints of sudden chest discomfort along with the pain in the epigastric area radiating towards his neck and described as throbbing sensation without any associated difficulties in breathing or diaphoresis. Patient carries the diagnosis of 1. heart failure With reduced ejection fraction 2. Chronic obstructive pulmonary disease 3. Hypertension 4. Tobacco dependence 5. Previous cerebrovascular accident. At present he has history of years smoked 40 with smoking pack years of 10 and currently everyday smoker but no alcohol. Initial exam in the emergency room was unremarkable. His vital signs were normal except blood pressure 139/103, CBC was normal BMP was normal mast scan was normal his troponin was 0.055 repeat 0.069 and drug screen positive for the opiate on urine. CT of the head normal, initial CTA of the chest documented 7 to 8 mm right lung pulmonary nodule. Head and neck CTA documented left frontal and parietal lobe acute infarct with total occlusion of 2 left M2 middle cerebral artery branches. MRI of the brain on 08/14 documented acute infarct in left frontal and left parietal lobe with scattered white matter changes. Patient is receiving aspirin 81mg daily, atorvastatin 80mg daily, clopidogrel 75mg daily, cardiac consultation was obtained the documentation of non STEMI rising troponin and ongoing chest pain with reduced heart failure ejection fraction and uncontrolled hypertension, metoprolol was added heparin drip was continued. Mild left anterior descending with 40% diffuse stenosis was documented. Echocardiogram with mild enlargement of the left atrium left ventricle with mild regurgitation. Recently he was noted to be more confused as per the documentation by the nurses call. Neurology consultation has been obtained at this stage. Patient was considered to be transferred at tertiary care because of the confusion. Review of Systems 2 Review of Systems: All systems reviewed & are unremarkable except as noted in HPI and below PMFSH Past Medical History Medical History Heart failure with reduced ejection fraction Chronic obstructive pulmonary disease Hypertension Tobacco dependence Cerebrovascular accident left sided weakness Coronary artery disease Surgical History Surgical History History of cardiac catheterization Family History Family History Father Acute myocardial infarction Social History Social History Social History: Surrogate medical decision maker: Thaddeus Burns, significant other. Code status: Full code. Smoking packs per day: 0.25 Smoking cigarettes per day: 5.0 Years smoked: 40 Smoking pack-years: 10.00 Smoking status: Current every day smoker Tobacco type: cigarettes Alcohol intake: never Substance use: never Do You Feel Safe in your Home?: Yes Lack of Transportation: No Lack of Food: Never True Current Housing: I Have Housing Concerned About Future Housing: No Difficulty Paying Gas/Electric Bills: No Difficulty Paying for Meds: No Currently Unemployed: No Education: High School Diploma/GED Difficulty w/ Childcare or Family Care: No Spiritual care concerns: No Meds Home Medications and Allergies Home Medications ?Medication ?Instructions ?Recorded ?Confirmed ?Type albuterol 90 mcg/actuation aerosol 90 mcg inhalation QID PRN COPD 08/13/24 08/13/24 History inhaler Breathing albuterol sulfate 2.5 mg/3 mL 2.5 mg inhalation Q6H PRN 08/13/24 08/13/24 History (0.083 %) solution for nebulization shortness of breath amlodipine 10 mg tablet (Norvasc) 10 mg PO HS 08/13/24 08/13/24 History aspirin 81 mg tablet,delayed 81 mg PO HS 08/13/24 08/13/24 History release (Adult Aspirin Regimen) cholecalciferol (vitamin D3) 50 2,000 unit PO HS 08/13/24 08/13/24 History mcg (2,000 unit) capsule empagliflozin 25 mg tablet 12.5 mg PO HS 08/13/24 08/13/24 History hydralazine 25 mg tablet 25 mg PO TID 08/13/24 08/13/24 History isosorbide mononitrate 60 mg 60 mg PO HS 08/13/24 08/13/24 History tablet,extended release 24 hr lanolin alcohols-mineral 1 applic topical DAILY PRN dry skin 08/13/24 08/13/24 History oil-w.petrolatum-ceresin topical cream (Eucerin topical cream) lidocaine 5 % topical patch 1 patch topical DAILY 08/13/24 08/13/24 History metoprolol succinate 200 mg 100 mg PO HS 08/13/24 08/13/24 History tablet,extended release 24 hr naloxone 4 mg/actuation nasal 4 mg intranasal Q3M PRN opioid 08/13/24 08/13/24 History spray (Narcan) overdose nicotine (polacrilex) 4 mg buccal 4 mg buccal Q4H PRN nicotine 08/13/24 08/13/24 History mini lozenge (Nicorette) cravings omeprazole 40 mg capsule,delayed 40 mg PO HS 08/13/24 08/13/24 History release quetiapine 50 mg tablet 50 mg PO HS 08/13/24 08/13/24 History rosuvastatin 40 mg tablet 40 mg PO HS 08/13/24 08/13/24 History sacubitril 97 mg-valsartan 103 mg 1 tablet PO HS 08/13/24 08/13/24 History tablet (Entresto) spironolactone 25 mg tablet 25 mg PO DAILY 08/13/24 08/13/24 History tiotropium bromide 2.5 2 inh inhalation HS 08/13/24 08/13/24 History mcg/actuation mist for inhalation (Spiriva Respimat) triamcinolone acetonide 0.1 % 1 applic topical HS 08/13/24 08/13/24 History topical cream Allergies Allergy/AdvReac Type Severity Reaction Status Date / Time latex Allergy Mild Hives Verified 08/12/24 05:32 Vital Signs Vital Signs - 24 hr 08/13/24 14:00 08/13/24 16:00 08/13/24 16:00 Temperature 36.6 C Pulse Rate 54 L 55 L 55 L Respiratory Rate 18 18 Blood Pressure 151/84 H Pulse Oximetry 98 98 Oxygen Delivery Room Air 08/13/24 16:00 08/13/24 18:00 08/13/24 20:00 Temperature 37.0 C Pulse Rate 77 63 59 L Respiratory Rate 16 Blood Pressure 158/87 H Pulse Oximetry 95 Oxygen Delivery 08/13/24 20:00 08/13/24 20:00 08/13/24 20:24 Temperature Pulse Rate 59 L 61 Respiratory Rate Blood Pressure Pulse Oximetry Oxygen Delivery Room Air 08/13/24 22:00 08/14/24 00:00 08/14/24 00:00 Temperature 36.9 C Pulse Rate 58 L 55 L Respiratory Rate 16 Blood Pressure 159/88 H Pulse Oximetry 100 Oxygen Delivery Room Air 08/14/24 00:00 08/14/24 02:00 08/14/24 04:00 Temperature Pulse Rate 56 L 57 L 50 L Respiratory Rate Blood Pressure Pulse Oximetry Oxygen Delivery 08/14/24 04:00 08/14/24 04:00 08/14/24 06:00 Temperature 36.7 C Pulse Rate 54 L 59 L Respiratory Rate 16 Blood Pressure 174/96 H Pulse Oximetry 99 Oxygen Delivery Room Air 08/14/24 06:29 08/14/24 07:49 08/14/24 08:00 Temperature 36.8 C Pulse Rate 62 67 67 Respiratory Rate 18 18 Blood Pressure 186/99 H Pulse Oximetry 99 99 Oxygen Delivery Room Air 08/14/24 08:00 08/14/24 08:22 08/14/24 10:00 Temperature Pulse Rate 78 64 60 Respiratory Rate Blood Pressure Pulse Oximetry Oxygen Delivery 08/14/24 11:37 08/14/24 11:37 08/14/24 12:00 Temperature 36.6 C Pulse Rate 52 L 52 L Respiratory Rate 22 H 22 H Blood Pressure 136/74 Pulse Oximetry 100 100 Oxygen Delivery Room Air Room Air 08/14/24 12:00 Temperature Pulse Rate 55 L Respiratory Rate Blood Pressure Pulse Oximetry Oxygen Delivery Exam 2 Narrative: On exam today he is awake alert cooperative in no obvious acute distress, his speech is spontaneous but dysarthric and more dysphagia unable to follow the instructions accordingly. Head normocephalic with no bruit ear nose throat examination normal neck supple with no cervical bruits heart regular with no murmur lungs clear abdomen is soft. Neurologically he is awake alert tries to follow the instruction but he had obviously dysphasic pupils round regular feels the vision to threat stimuli is positive in all 4 quadrants extraocular movements are full spontaneously with no nystagmus facial sensation intact face symmetrical tongue in midline uvula in midline. Has difficulties in performing [id number] to finger and heel to knee to shah more of because of the underlying dysphagia Results Labs 08/14/24 04:22 08/14/24 04:22 Labs: Short CBC 08/14/24 Range/Units 04:22 WBC 7.9 (4.5-10.0) K/mm3 Hgb 13.7 L (14.0-18.0) g/dL Hct 41.0 L (42.0-52.0) % Plt Count 204 (150-375) k/mm3 BMP 08/14/24 04:22 Sodium 139 Potassium 3.1 L Chloride 103 Carbon Dioxide 30 BUN 18 Creatinine 0.91 Glucose 94 Calcium 8.6 Liver Function 08/14/24 Range/Units 04:22 Total Bilirubin 1.2 (0.2-1.3) mg/dL AST 20 (17-59) U/L ALT 13 (6-50) U/L Alkaline Phosphatase 106 (38-126) U/L Albumin 3.8 (3.5-5.1) g/dL
--- NOTE | 2024-08-14 16:06 | P.PNCA_ITS ---
Progress Note: A&P Assessment and Plan (1) Acute non-ST elevation myocardial infarction (NSTEMI): Code(s): I21.4 - Non-ST elevation (NSTEMI) myocardial infarction Status: Acute (2) Chest pain: Code(s): R07.9 - Chest pain, unspecified Status: Acute Plan NSTEMI-type 2 Non obstructive CAD Elevated LVEDP of 35 Acute CVA Plan: Medical management for CAD with aspirin, statin, metoprolol Heparin drip has been discontinued Continue Imdur 60 mg daily (home medication) Maintain SBP greater than 120 mm Hg and avoid hypotension Will shift him to p.o. furosemide today - 40mg b.i.d. Discharge on furosemide 40mg p.o. daily. TTE showed mild LV systolic dysfunction with EF 40-45%. Negative bubble study. Will shift metoprolol tartrate to succinate and resume his home GDMT including entresto, spironolactone, jardiance. Neurology consulted - recommend rehab for stroke. Subjective Date/time seen: 08/14/24 16:06 Interval history: Cardiology follow up for CAD, HFrEF 08/13/2024: Found to have NOCAD, large ectatic vessels with slow flow. He feels well today and denies and recurrence of chest pain. Denies shortness of breath, palpitations. 08/14/2024: Noted by staff yesterday afternoon to be aphasic, head CT performed and showed left parietal and frontal lobes. Today he remains chest pain free. Denies any shortness of breath or palpitations. Review of Systems Review of Systems: Complete review of systems was performed and negative other than those mentioned in HPI Exam Const: General: comfortable, no acute distress, alert and awake Orientation/consciousness: patient oriented x3 HENMT: Head: normal to inspection Eyes: General: appearance normal, both eyes and all related structures Pupils: Equal, round and reactive pupils present Neck: Neck: normal visual inspection, supple and no JVD Carotids: normal carotid upstroke Resp: Effort & Inspection: normal respiratory effort Auscultation: clear to auscultation bilaterally and rales on the right at the base Cardio: Rate: regular rate Rhythm: regular rhythm Heart sounds: S1 normal heart sound present, S2 normal heart sound present and no murmurs GI: Auscultation: normal bowel sounds Skin: General skin exam: normal color Neuro: General: patient oriented x3 Cranial nerves: Yes Equal, round and reactive pupils present Extrem: General: normal to inspection Other: R radial arterial access site free from bleeding, hematoma. Arm board has been removed. Psych: Appearance: grossly normal Mental Status: mental status grossly normal Objective Data Vital Signs Vital Signs: Vital Signs - 24 hr 08/13/24 18:00 08/13/24 20:00 08/13/24 20:00 Temperature 37.0 C Pulse Rate 63 59 L Respiratory Rate 16 Blood Pressure 158/87 H Pulse Oximetry 95 Oxygen Delivery Room Air 08/13/24 20:00 08/13/24 20:24 08/13/24 22:00 Temperature Pulse Rate 59 L 61 58 L Respiratory Rate Blood Pressure Pulse Oximetry Oxygen Delivery 08/14/24 00:00 08/14/24 00:00 08/14/24 00:00 Temperature 36.9 C Pulse Rate 55 L 56 L Respiratory Rate 16 Blood Pressure 159/88 H Pulse Oximetry 100 Oxygen Delivery Room Air 08/14/24 02:00 08/14/24 04:00 08/14/24 04:00 Temperature Pulse Rate 57 L 50 L Respiratory Rate Blood Pressure Pulse Oximetry Oxygen Delivery Room Air 08/14/24 04:00 08/14/24 06:00 08/14/24 06:29 Temperature 36.7 C Pulse Rate 54 L 59 L 62 Respiratory Rate 16 Blood Pressure 174/96 H Pulse Oximetry 99 Oxygen Delivery 08/14/24 07:49 08/14/24 08:00 08/14/24 08:00 Temperature 36.8 C Pulse Rate 67 67 78 Respiratory Rate 18 18 Blood Pressure 186/99 H Pulse Oximetry 99 99 Oxygen Delivery Room Air 08/14/24 08:22 08/14/24 10:00 08/14/24 11:37 Temperature 36.6 C Pulse Rate 64 60 52 L Respiratory Rate 22 H Blood Pressure 136/74 Pulse Oximetry 100 Oxygen Delivery 08/14/24 11:37 08/14/24 12:00 08/14/24 12:00 Temperature Pulse Rate 52 L 55 L Respiratory Rate 22 H Blood Pressure Pulse Oximetry 100 Oxygen Delivery Room Air Room Air 08/14/24 12:45 08/14/24 14:00 Temperature Pulse Rate 69 Respiratory Rate Blood Pressure Pulse Oximetry Oxygen Delivery Room Air Intake/Output Intake/Output: Intake & Output 08/11/24 08/12/24 08/13/24 08/14/24 23:59 23:59 23:59 23:59 Intake Total 413.4 567.8 460 Output Total 3925 1050 Balance 413.4 -3357.2 -590 Meds/Results Medications: Active Medications Generic Name Dose Route Start Last Admin Trade Name Freq PRN Reason Stop Dose Admin Acetaminophen 650 mg 08/12/24 06:51 Acetaminophen 325 Mg Tablet PO Q6H PRN Mild Pain (1-3) or Fever Aspirin 81 mg 08/13/24 09:00 08/14/24 08:22 Aspirin 81 Mg Enteric Tablet PO 81 mg QAM FAWAD Administration Atorvastatin Calcium 80 mg 08/13/24 09:00 08/14/24 08:23 Atorvastatin 40 Mg Tablet PO 80 mg DAILY FAWAD Administration Clopidogrel Bisulfate 75 mg 08/14/24 09:00 08/14/24 09:23 Clopidogrel Bisulfate 75 Mg Tablet PO 75 mg QAM FAWAD Administration Furosemide 40 mg 08/13/24 09:00 08/14/24 09:24 Furosemide Inj 40 Mg/4 Ml Vial IV PUSH 40 mg BID FAWAD Administration Isosorbide Mononitrate 30 mg 08/13/24 09:00 08/14/24 08:24 Isosorbide Mononitrate 30 Mg Tab.Er.24h PO 30 mg QAM FAWAD Administration Metoprolol Tartrate 25 mg 08/12/24 21:00 08/14/24 08:22 Metoprolol Tartrate 25 Mg Tablet PO 25 mg Q12HR FAWAD Administration Morphine Sulfate 4 mg 08/12/24 06:51 08/12/24 07:06 Morphine Sulfate (*Crx) 2 Mg/Ml Inj IV PUSH 4 mg Q4H PRN Administration Pain Rated 7-10 Nitroglycerin 0.4 mg 08/12/24 12:16 08/12/24 12:32 Nitroglycerin Sl 0.4 Mg Tablet SUBLINGUAL 0.4 mg Q5MIN PRN Administration Chest Pain Perflutren Lipid Microsphere 0 ml 08/13/24 15:12 Perflutren Lipid Microspheres 1.5 Ml Vial Diluted To 10 Ml Total Volume IV PUSH 08/16/24 15:16 ONCE PRN adequate visualization Protocol Perflutren Lipid Microsphere 0 ml 08/14/24 08:18 Perflutren Lipid Microspheres 1.5 Ml Vial Diluted To 10 Ml Total Volume IV PU SH 08/17/24 08:18 ONCE PRN adequate visualization Protocol Potassium Chloride 40 meq 08/15/24 09:00 Potassium Chloride 20 Meq Packet (For Liquid) PO DAILY [facility] Radiology Results: ITS Impressions Chest/Abdomen/Pelvis CTA 08/12/24 06:30 Impression: No acute abnormalities seen. 7 mm and 8 mm right lung pulmonary nodules, as above. According to Fleischner Society criteria, for a low-risk patient, follow-up CT scan in 3-6 months recommended, then consider additional 18-[address] A high-risk patients, follow-up CT scans at both 3-6 months and 18-24 months are recommended. No significant abnormality in the abdomen or pelvis. Chest X-Ray 08/12/24 06:53 Impression: Clear lungs. Probable cardiomegaly. Head CT 08/13/24 15:00 IMPRESSION: 1. Acute infarcts in the left frontal and parietal lobes, not visible on 08/12/2024. 2. Moderate nonspecific cerebral white matter disease, which likely represents chronic small vessel ischemic disease. Head/Neck CTA 08/13/24 16:21 IMPRESSION: 1. Acute infarcts in the left frontal and parietal lobes. 2. Moderate nonspecific cerebral white matter disease, which likely represents chronic small vessel ischemic disease. 3. 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 4. 0% stenosis of the proximal internal carotid arteries relative to normal distal artery lumen diameters (NASCET criteria). Brain MRI 08/14/24 09:07 IMPRESSION: 1. Acute infarcts in the left frontal and left parietal lobes. 2. Additional mild scattered nonspecific white matter T2 hyperintensity consistent with chronic small vessel ischemic disease. Labs Labs: Laboratory Results - last 24 hr 08/13/24 08/14/24 09:14 04:22 WBC 7.9 RBC 4.85 Hgb 13.7 L Hct 41.0 L MCV 84.5 MCH 28.2 MCHC 33.4 RDW 14.0 Plt Count 204 MPV 11.6 H Immature Gran % (Auto) 0.3 Neut % (Auto) 70.6 Lymph % (Auto) 15.4 L Clarke % (Auto) 10.4 H Eos % (Auto) 2.3 Baso % (Auto) 1.0 Lymph # (Auto) 1.22 Clarke # (Auto) 0.8 H Eos # (Auto) 0.2 Baso # (Auto) 0.1 Abs Immat Gran (auto) 0.02 Absolute Neuts (auto) 5.6 Absolute Nucleated RBC 0.000 Nucleated RBC % 0.0 Sodium 139 Potassium 3.1 L Chloride 103 Carbon Dioxide 30 Anion Gap 6 BUN 18 Creatinine 0.91 Estim Creat Clear Calc 88 Estimated GFR > 60 Glucose 94 Calcium 8.6 Magnesium 2.0 Total Bilirubin 1.2 AST 20 ALT 13 Alkaline Phosphatase 106 Total Protein 7.0 Albumin 3.8 LDL Cholesterol Direct 126
[2024-08-14] MEDS: FUROSEMIDE 40 MG TABLET PO (16:31)
[2024-08-14] MEDS: SACUBITRIL/VALSARTAN 97-103 MG TABLET 1 TAB PO (20:32)
[2024-08-15] VITALS (16 sets, daily range): BP systolic 116–147; BP diastolic 74–97; PULSE 52–84; RESP 16–20; TEMP 36.6–37.1; O2SAT 95–100
[2024-08-15 05:11] LABS: Basophils Absolute Auto 0.1 K/mm3 (0.0-0.1); Basophils Percent Auto 0.9 % (0.2-1.2); Eosinophils Absolute Auto 0.1 K/mm3 (0-0.3); Eosinophils Percent Auto 1.4 % (0-4.4); Hemoglobin 15.1 g/dL (14.0-18.0); Immature Granulocyte Absolute 0.03 K/mm3 (0.00-0.031); Immature Granulocyte Percent A 0.4 % (0-0.5); Lymphocytes Absolute Auto 0.99 K/mm3 (0.9-3.2); Lymphocytes Percent Auto 12.3 % (18.3-44.2); Mean Corpuscular HGB Conc 32.8 g/dl (32-36); Mean Corpuscular Hemoglobin 27.3 pg (26-34); Mean Corpuscular Volume 83.2 fl (80-100); Mean Platelet Volume 11.4 fl (7.4-10.4); Monocytes Absolute Auto 1.1 K/mm3 (0.1-0.6); Monocytes Percent Auto 13.5 % (2.6-8.5); Neutrophils Absolute Auto 5.8 K/mm3 (1.3-6.7); Neutrophils Percent Auto 71.5 % (45.5-73.1); Platelet Count Result 213 k/mm3 (150-375); Red Blood Count 5.53 M/mm3 (4.6-6.20); Red Cell Distribution Width 13.7 % (11.5-14.5); White Blood Count 8.1 K/mm3 (4.5-10.0)
[2024-08-15 05:24] LABS: Alanine Aminotransferase 18 U/L (6-50); Alkaline Phosphatase 107 U/L (38-126); Anion Gap 9 mmol/L (4-12); Aspartate Amino Transferase 28 U/L (17-59); Bilirubin,Total 1.2 mg/dL (0.2-1.3); Blood Urea Nitrogen 17 mg/dL (9-20); Calcium 8.8 mg/dL (8.4-10.2); Carbon Dioxide 26 mmol/L (22-30); Chloride 105 mmol/L (98-107); Estimated CRCL calculation 97 ml/min; Estimated Glomerular Filt Rate > 60; Glucose 100 mg/dL (65-110); Magnesium 1.9 mg/dL (1.6-2.3); Potassium 3.1 mmol/L (3.4-5.0); Sodium 140 mmol/L (137-145)
--- NOTE | 2024-08-15 09:28 | P.PNIM_ITS ---
Progress Note: A&P Assessment and Plan (1) Hypertension: Code(s): I10 - Essential (primary) hypertension Status: Acute (2) Heart failure with reduced ejection fraction: Code(s): I50.20 - Unspecified systolic (congestive) heart failure Status: Acute (3) Chest pain: Code(s): R07.9 - Chest pain, unspecified Status: Acute (4) Acute non-ST elevation myocardial infarction (NSTEMI): Code(s): I21.4 - Non-ST elevation (NSTEMI) myocardial infarction Status: Acute (5) Cerebrovascular accident: Code(s): I63.9 - Cerebral infarction, unspecified Status: Acute (6) Chronic obstructive pulmonary disease: Code(s): J44.9 - Chronic obstructive pulmonary disease, unspecified Status: Acute (7) Obstructive sleep apnea of adult: Code(s): G47.33 - Obstructive sleep apnea (adult) (pediatric) Status: Acute (8) Acute ischemic stroke: Code(s): I63.9 - Cerebral infarction, unspecified Status: Acute Plan Chest pain: Code(s): R07.9 - Chest pain, unspecified Status: Acute Assessment and Plan: Patient presented with chest pain Upon arrival, patient found elevated troponin, EKG showed T-wave inversion V4 to V6 Suspecting NSTEMI Underwent cardiac catheterization 08/12. 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 Continue aspirin, 81 mg daily p.o., Lipitor 80 mg daily p.o., Imdur 30 mg daily p.o. For the management per [employer] sales supervisor Heart failure with reduced ejection fraction: Code(s): I50.20 - Unspecified systolic (congestive) heart failure Status: Acute Assessment and Plan: Decompensated Continue furosemide 40 mg b.i.d. IV push Acute CVA Patient was noticed confused yesterday afternoon. CT head 08/13: Acute infarcts in the left frontal and parietal lobes, not visible on 08/12/2024. CTA head and neck 08/13: Total occlusion of two left M2 middle cerebral artery branches. Dr. Noe called [facility] stroke center and spoke with Dr George will consider patient is not candidate from thrombectomy repeated echo 08/13: Intact interatrial septum visualized by color flow imaging. No intramural thrombosis or vegetation were found Patient is on aspirin 81 mg daily p.o. and Lipitor, add Plavix 75 mg daily p.o. Appreciate neurologist consultation, recommend continue aspirin Plavix and Lipitor Chronic obstructive pulmonary disease: Code(s): J44.9 - Chronic obstructive pulmonary disease, unspecified Status: Acute Assessment and Plan: Clinically stable Pulmonary nodule: Code(s): R91.1 - Solitary pulmonary nodule Status: Acute Assessment and Plan: Will need ongoing outpatient follow-up with the [facility] Rash: Code(s): R21 - Rash and other nonspecific skin eruption Status: Acute Assessment and Plan: Chronic. Biopsy of chest rash was done, results pending. Obstructive sleep apnea of adult: Code(s): G47.33 - Obstructive sleep apnea (adult) (pediatric) Status: Acute Assessment and Plan: AutoPAP while sleeping until family can bring in home machine. Patient is waiting to be discharged to acute rehab Subjective Date/time seen: 08/15/24 09:28 Interval history: I saw and examined the patient in presents of patient's nurse in the room. Patient is alert, not oriented x3, patient knows he in the hospital. Patient denies vision change, focal weakness, hold bilateral arms and legs up. Exam Narrative: GENERAL: Pleasant, in no acute distress. Well-nourished. - EYES: EOMI. Anicteric. - HENT: Moist mucous membranes. - LUNGS: Clear to auscultation bilateral ly, no wheezing, rhonchi, or rales. - CARDIOVASCULAR: Regular rate and rhyth m. No murmur. No JVD. - ABDOMEN: Soft, non-tender and non-dist ended. No palpable masses. - EXTREMITIES: No edema. Peripheral puls es 2+. Non-tender. - NEUROLOGIC: No focal neurological defi cits. CN II-XII grossly intact. - PSYCHIATRIC: Awake, Alert and not orie nted x 3, patient knows his 's name Appropriate mood and affect. - LYMPH: No cervical lymphadenopathy. Objective Data Vital Signs Vital Signs: Vital Signs - 24 hr 08/14/24 10:00 08/14/24 11:37 08/14/24 11:37 Temperature 97.9 F Pulse Rate 60 52 L Respiratory Rate 22 H Blood Pressure 136/74 Pulse Oximetry 100 Oxygen Delivery Room Air 08/14/24 12:00 08/14/24 12:00 08/14/24 12:45 Temperature Pulse Rate 52 L 55 L Respiratory Rate 22 H Blood Pressure Pulse Oximetry 100 Oxygen Delivery Room Air Room Air 08/14/24 14:00 08/14/24 15:40 08/14/24 16:00 Temperature 98.3 F Pulse Rate 69 68 67 Respiratory Rate 18 Blood Pressure 135/78 Pulse Oximetry 100 Oxygen Delivery 08/14/24 16:00 08/14/24 18:00 08/14/24 20:00 Temperature Pulse Rate 67 77 Respiratory Rate 18 Blood Pressure Pulse Oximetry 100 Oxygen Delivery Room Air Room Air 08/14/24 20:00 08/14/24 20:50 08/14/24 22:00 Temperature 97.8 F Pulse Rate 69 66 64 Respiratory Rate 18 Blood Pressure 152/95 H Pulse Oximetry 98 Oxygen Delivery 08/14/24 23:28 08/15/24 00:00 08/15/24 00:00 Temperature 97.8 F Pulse Rate 68 66 Respiratory Rate 18 Blood Pressure 156/87 H Pulse Oximetry 98 Oxygen Delivery Room Air 08/15/24 02:00 08/15/24 04:00 08/15/24 04:00 Temperature Pulse Rate 67 71 Respiratory Rate Blood Pressure Pulse Oximetry Oxygen Delivery Room Air 08/15/24 04:20 08/15/24 06:00 08/15/24 07:35 Temperature 98.2 F 98.3 F Pulse Rate 64 65 71 Respiratory Rate 20 16 Blood Pressure 147/74 H 124/97 H Pulse Oximetry 95 99 Oxygen Delivery Intake/Output Intake/Output: Intake & Output 08/12/24 08/13/24 08/14/24 08/15/24 23:59 23:59 23:59 23:59 Intake Total 413.4 567.8 1920 Output Total 3925 1750 950 Balance 413.4 -3357.2 170 -950 Meds/Results Medications: Active Medications Generic Name Dose Route Start Last Admin Trade Name Freq PRN Reason Stop Dose Admin Acetaminophen 650 mg 08/12/24 06:51 Acetaminophen 325 Mg Tablet PO Q6H PRN Mild Pain (1-3) or Fever Aspirin 81 mg 08/13/24 09:00 08/14/24 08:22 Aspirin 81 Mg Enteric Tablet PO 81 mg QAM FAWAD Administration Atorvastatin Calcium 80 mg 08/13/24 09:00 08/14/24 08:23 Atorvastatin 40 Mg Tablet PO 80 mg DAILY FAWAD Administration Clopidogrel Bisulfate 75 mg 08/14/24 09:00 08/14/24 09:23 Clopidogrel Bisulfate 75 Mg Tablet PO 75 mg QAM FAWAD Administration Empagliflozin 10 mg 08/15/24 09:00 Empagliflozin 10 Mg Tablet PO DAILY FAWAD Furosemide 40 mg 08/14/24 17:00 08/14/24 16:31 Furosemide 40 Mg Tablet PO 40 mg BID FAWAD Administration Isosorbide Mononitrate 30 mg 08/13/24 09:00 08/14/24 08:24 Isosorbide Mononitrate 30 Mg Tab.Er.24h PO 30 mg QAM FAWAD Administration Metoprolol Succinate 50 mg 08/15/24 09:00 Metoprolol Succinate Ext Rel 50 Mg Tabcr PO QAM [facility] Morphine Sulfate 4 mg 08/12/24 06:51 08/12/24 07:06 Morphine Sulfate (*Crx) 2 Mg/Ml Inj IV PUSH 4 mg Q4H PRN Administration Pain Rated 7-10 Nitroglycerin 0.4 mg 08/12/24 12:16 08/12/24 12:32 Nitroglycerin Sl 0.4 Mg Tablet SUBLINGUAL 0.4 mg Q5MIN PRN Administration Chest Pain Perflutren Lipid Microsphere 0 ml 08/13/24 15:12 Perflutren Lipid Microspheres 1.5 Ml Vial Diluted To 10 Ml Total Volume IV PUSH 08/16/24 15:16 ONCE PRN adequate visualization Protocol Perflutren Lipid Microsphere 0 ml 08/14/24 08:18 Perflutren Lipid Microspheres 1.5 Ml Vial Diluted To 10 Ml Total Volume IV PUSH 08/17/24 08:18 ONCE PRN adequate visualization Protocol Potassium Chloride 40 meq 08/15/24 09:00 Potassium Chloride 20 Meq Packet (For Liquid) PO DAILY FAWAD Sacubitril/Valsartan 1 tab 08/14/24 21:00 08/14/24 20:32 Sacubitril/Valsartan 97-103 Mg Tablet PO 1 tab HS [facility] Administration Spironolactone 25 mg 08/15/24 09:00 Spironolactone 25 Mg Tablet PO DAILY [facility] Radiology Results: ITS Impressions Chest/Abdomen/Pelvis CTA 08/12/24 06:30 Impression: No acute abnormalities seen. 7 mm and 8 mm right lung pulmonary nodules, as above. According to Fleischner Society criteria, for a low-risk patient, follow-up CT scan in 3-6 months recommended, then consider additional 18-[address] A high-risk patients, follow-up CT scans at both 3-6 months and 18-24 months are recommended. No significant abnormality in the abdomen or pelvis. Chest X-Ray 08/12/24 06:53 Impression: Clear lungs. Probable cardiomegaly. Head CT 08/13/24 15:00 IMPRESSION: 1. Acute infarcts in the left frontal and parietal lobes, not visible on 08/12/2024. 2. Moderate nonspecific cerebral white matter disease, which likely represents chronic small vessel ischemic disease. Head/Neck CTA 08/13/24 16:21 IMPRESSION: 1. Acute infarcts in the left frontal and parietal lobes. 2. Moderate nonspecific cerebral white matter disease, which likely represents chronic small vessel ischemic disease. 3. 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 4. 0% stenosis of the proximal internal carotid arteries relative to normal distal artery lumen diameters (NASCET criteria). Brain MRI 08/14/24 09:07 IMPRESSION: 1. Acute infarcts in the left frontal and left parietal lobes. 2. Additional mild scattered nonspecific white matter T2 hyperintensity consistent with chronic small vessel ischemic disease. Labs Labs: Laboratory Results - last 24 hr 08/15/24 04:59 WBC 8.1 RBC 5.53 Hgb 15.1 Hct 46.0 MCV 83.2 MCH 27.3 MCHC 32.8 RDW 13.7 Plt Count 213 MPV 11.4 H Immature Gran % (Auto) 0.4 Neut % (Auto) 71.5 Lymph % (Auto) 12.3 L [place] % (Auto) 13.5 H Eos % (Auto) 1.4 Baso % (Auto) 0.9 Lymph # (Auto) 0.99 [place] # (Auto) 1.1 H Eos # (Auto) 0.1 Baso # (Auto) 0.1 Abs Immat Gran (auto) 0.03 Absolute Neuts (auto) 5.8 Absolute Nucleated RBC 0.000 Nucleated RBC % 0.0 Sodium 140 Potassium 3.1 L Chloride 105 Carbon Dioxide 26 Anion Gap 9 BUN 17 Creatinine 0.78 Estim Creat Clear Calc 97 Estimated GFR > 60 Glucose 100 Calcium 8.8 Magnesium 1.9 Total Bilirubin 1.2 AST 28 ALT 18 Alkaline Phosphatase 107 Total Protein 8.0 Albumin 4.0
[2024-08-15] MEDS: METOPROLOL SUCCINATE EXT REL 50 MG TABCR PO (09:38)
[2024-08-15] MEDS: SPIRONOLACTONE 25 MG TABLET PO (09:38)
[2024-08-15] MEDS: ISOSORBIDE MONONITRATE 30 MG TAB.ER.24H PO (09:38)
[2024-08-15] MEDS: CLOPIDOGREL BISULFATE 75 MG TABLET PO (09:38)
[2024-08-15] MEDS: FUROSEMIDE 40 MG TABLET PO ×2 (09:38→17:02)
[2024-08-15] MEDS: ATORVASTATIN 40 MG TABLET 80 MG PO (09:38)
[2024-08-15] MEDS: POTASSIUM CHLORIDE 20 MEQ PACKET (FOR LIQUID) 40 MEQ PO (09:39)
[2024-08-15] MEDS: EMPAGLIFLOZIN 10 MG TABLET PO (09:39)
[2024-08-15] MEDS: ASPIRIN 81 MG ENTERIC TABLET PO (09:39)
[2024-08-15] MEDS: POTASSIUM CHLORIDE 20 MEQ ER TABLET 40 MEQ PO ×2 (09:54→12:11)
[2024-08-15] MEDS: KCL 20 MEQ/SW 100 ML 100 ML 50 MEQ IVPB (10:11)
--- NOTE | 2024-08-15 11:09 | PM.DS ---
DS: Summary Time Spent with Patient Time attestation: Total time spent providing and/or coordinating discharge services: DS: Data Data Completed and Pending Labs on day of discharge: Labs from last 24 hours 08/15/24 04:59 WBC 8.1 RBC 5.53 Hgb 15.1 Hct 46.0 MCV 83.2 MCH 27.3 MCHC 32.8 RDW 13.7 Plt Count 213 MPV 11.4 H Immature Gran % (Auto) 0.4 Neut % (Auto) 71.5 Lymph % (Auto) 12.3 L [place] % (Auto) 13.5 H Eos % (Auto) 1.4 Baso % (Auto) 0.9 Lymph # (Auto) 0.99 [place] # (Auto) 1.1 H Eos # (Auto) 0.1 Baso # (Auto) 0.1 Abs Immat Gran (auto) 0.03 Absolute Neuts (auto) 5.8 Absolute Nucleated RBC 0.000 Nucleated RBC % 0.0 Sodium 140 Potassium 3.1 L Chloride 105 Carbon Dioxide 26 Anion Gap 9 BUN 17 Creatinine 0.78 Estim Creat Clear Calc 97 Estimated GFR > 60 Glucose 100 Calcium 8.8 Magnesium 1.9 Total Bilirubin 1.2 AST 28 ALT 18 Alkaline Phosphatase 107 Total Protein 8.0 Albumin 4.0 Discharge Plan Discharge Consulting providers: Alberto Norton; David Melvin Patient Instructions: Clopidogrel (By mouth), Heart Failure (GEN), How to Stop Smoking (GEN) Patient Language: Yoruba Discharge Medications: No Action empagliflozin 25 mg tablet 12.5 mg PO HS isosorbide mononitrate 60 mg tablet extended release 24 hr 60 mg PO HS rosuvastatin 40 mg tablet 40 mg PO HS albuterol 90 mcg/actuation aerosol 90 mcg inhalation QID PRN (Reason: COPD Breathing) Rx Instructions: Take 2 puffs by oral inhalation four times a day as needed for COPD breathing albuterol sulfate 2.5 mg /3 mL (0.083 %) solution for nebulization 2.5 mg inhalation Q6H PRN (Reason: shortness of breath) Rx Instructions: Inhale 1 vial (2.5mg/3ml) by nebulization every 6 hours as needed for breathing amlodipine [Norvasc] 10 mg tablet 10 mg PO HS aspirin [Adult Aspirin Regimen] 81 mg tablet,delayed release (DR/EC) 81 mg PO HS cholecalciferol (vitamin D3) 50 mcg (2,000 unit) capsule 2,000 unit PO HS hydralazine 25 mg tablet 25 mg PO TID Eucerin Cream 1 applic topical DAILY PRN (Reason: dry skin) Rx Instructions: Apply liberally to affected area once a day for moisturizer lidocaine 5 % adhesive patch,medicated 1 patch topical DAILY Rx Instructions: leave on most painful area for up to 12 hrs Apply to lower back metoprolol succinate 200 mg tablet extended release 24 hr 100 mg PO HS naloxone [Narcan] 4 mg/actuation spray,non-aerosol 4 mg intranasal Q3M PRN (Reason: opioid overdose) Rx Instructions: spray 1 dose into ONE nostril; alternate nostrils w each dose until help arrives nicotine (polacrilex) [Nicorette] 4 mg mini lozenge 4 mg buccal Q4H PRN (Reason: nicotine cravings) omeprazole 40 mg capsule,delayed release(DR/EC) 40 mg PO HS quetiapine 50 mg tablet 50 mg PO HS sacubitril-valsartan [Entresto] 97-103 mg tablet 1 tablet PO HS spironolactone 25 mg tablet 25 mg PO DAILY Spiriva Respimat 2.5 mcg/actuation mist 2 inh inhalation HS triamcinolone acetonide 0.1 % cream 1 applic topical HS Rx Instructions: Apply thin layer to affected area on abdomen twice a day until resolved Date of admission: 08/12/24 04:18 Primary Care Provider: PHYSICIAN NOT ON STAFF,NONSTAFF Admitting Provider: Yasmine Noe Attending physician on admission: Yasmine Noe Condition: Stable
--- NOTE | 2024-08-15 14:58 | PCPTNOTE ---
On 08/15/24, the student, FAHEEM Rader, provided care and completed [facility] documentation on this patient. I have reviewed the student's documentation and agree with the findings.
[2024-08-15] MEDS: SACUBITRIL/VALSARTAN 97-103 MG TABLET 1 TAB PO (21:13)
[2024-08-16] VITALS: BP 131/82; PULSE 62; RESP 18; TEMP 36.7; O2SAT 97
--- NOTE | 2024-08-16 04:42 | PC.NURSE ---
pt transfered to 315-1 report given pt verb no c/o
[2024-08-16 07:27] LABS: Potassium 3.7 mmol/L (3.4-5.0)
[2024-08-16 08:00] VITALS: BP 141/85; PULSE 63; RESP 18; TEMP 36.1; O2SAT 98
--- NOTE | 2024-08-16 08:13 | PM.DS ---
DS: Admitting Diagnosis Discharge Date 08/16/24 Admitting Diagnosis Chest pain DS: Summary Time Spent with Patient Time attestation: Total time spent providing and/or coordinating discharge services: DS: Data Data Completed and Pending Labs on day of discharge: Labs from last 24 hours 08/16/24 06:57 Potassium 3.7 Discharge Plan Discharge Attending physician on discharge: Leonarda Donaldson Consulting providers: Alberto Norton; David Melvin Discharging Clinician: Leonarda Donaldson Anticipated Discharge Date/Time: 08/16/24 08:11 Patient Disposition: SNF Activity: as tolerated Diet: as tolerated and heart healthy Patient Instructions: Clopidogrel (By mouth), Heart Failure (GEN), How to Stop Smoking (GEN) Patient Language: Spanish Stand Alone Forms: General Discharge Information Follow-up/Referrals: Alberto Norton MD [Physician] - 2 Weeks David Melvin MD [Physician] - 3 Weeks Discharge Medications: New furosemide 40 mg Tablet 40 mg PO DAILY Qty: 60 0RF atorvastatin 40 mg Tablet 80 mg PO DAILY Qty: 60 0RF metoprolol succinate 50 mg Tablet Extended Release 24 Hr 50 mg PO QAM Qty: 60 0RF isosorbide mononitrate 30 mg Tablet Extended Release 24 Hr 30 mg PO QAM Qty: 60 0RF clopidogrel 75 mg Tablet 75 mg PO QAM Qty: 60 0RF Jardiance 10 mg Tablet 10 mg PO DAILY Qty: 60 0RF Continued albuterol 90 mcg/actuation aerosol 90 mcg inhalation QID PRN (Reason: COPD Breathing) Rx Instructions: Take 2 puffs by oral inhalation four times a day as needed for COPD breathing albuterol sulfate 2.5 mg /3 mL (0.083 %) solution for nebulization 2.5 mg inhalation Q6H PRN (Reason: shortness of breath) Rx Instructions: Inhale 1 vial (2.5mg/3ml) by nebulization every 6 hours as needed for breathing amlodipine [Norvasc] 10 mg tablet 10 mg PO HS aspirin [Adult Aspirin Regimen] 81 mg tablet,delayed release (DR/EC) 81 mg PO HS cholecalciferol (vitamin D3) 50 mcg (2,000 unit) capsule 2,000 unit PO HS Eucerin Cream 1 applic topical DAILY PRN (Reason: dry skin) Rx Instructions: Apply liberally to affected area once a day for moisturizer lidocaine 5 % adhesive patch,medicated 1 patch topical DAILY Rx Instructions: leave on most painful area for up to 12 hrs Apply to lower back naloxone [Narcan] 4 mg/actuation spray,non-aerosol 4 mg intranasal Q3M PRN (Reason: opioid overdose) Rx Instructions: spray 1 dose into ONE nostril; alternate nostrils w each dose until help arrives nicotine (polacrilex) [Nicorette] 4 mg mini lozenge 4 mg buccal Q4H PRN (Reason: nicotine cravings) omeprazole 40 mg capsule,delayed release(DR/EC) 40 mg PO HS quetiapine 50 mg tablet 50 mg PO HS sacubitril-valsartan [Entresto] 97-103 mg tablet 1 tablet PO HS spironolactone 25 mg tablet 25 mg PO DAILY Spiriva Respimat 2.5 mcg/actuation mist 2 inh inhalation HS triamcinolone acetonide 0.1 % cream 1 applic topical HS Rx Instructions: Apply thin layer to affected area on abdomen twice a day until resolved Discontinued empagliflozin 25 mg tablet 12.5 mg PO HS isosorbide mononitrate 60 mg tablet extended release 24 hr 60 mg PO HS rosuvastatin 40 mg tablet 40 mg PO HS hydralazine 25 mg tablet 25 mg PO TID metoprolol succinate 200 mg tablet extended release 24 hr 100 mg PO HS Date of admission: 08/12/24 04:18 Primary Care Provider: PHYSICIAN NOT ON STAFF,NONSTAFF Admitting Provider: Yasmine Noe Attending physician on admission: Yasmine Noe Condition: Stable
[2024-08-16 09:49] VITALS: PULSE 75
[2024-08-16] MEDS: POTASSIUM CHLORIDE 20 MEQ PACKET (FOR LIQUID) 40 MEQ PO (09:49)
[2024-08-16] MEDS: CLOPIDOGREL BISULFATE 75 MG TABLET PO (09:49)
[2024-08-16] MEDS: METOPROLOL SUCCINATE EXT REL 50 MG TABCR PO (09:49)
[2024-08-16] MEDS: ATORVASTATIN 40 MG TABLET 80 MG PO (09:50)
[2024-08-16] MEDS: EMPAGLIFLOZIN 10 MG TABLET PO (09:50)
[2024-08-16] MEDS: SPIRONOLACTONE 25 MG TABLET PO (09:50)
[2024-08-16] MEDS: ASPIRIN 81 MG ENTERIC TABLET PO (09:51)
[2024-08-16] MEDS: FUROSEMIDE 40 MG TABLET PO (09:51)
[2024-08-16] MEDS: ISOSORBIDE MONONITRATE 30 MG TAB.ER.24H PO (09:51)
--- NOTE | 2024-08-16 11:36 | P.DS_ITS ---
DS: Admitting Diagnosis Discharge Date 08/16/24 Admitting Diagnosis Acute CVA Chest pain DS: Discharge Diagnosis Discharge Diagnosis (1) Chest pain: Code(s): R07.9 - Chest pain, unspecified Status: Acute (2) Elevated troponin: Code(s): R79.89 - Other specified abnormal findings of blood chemistry Status: Acute (3) Cerebrovascular accident: Code(s): I63.9 - Cerebral infarction, unspecified Status: Acute (4) Acute ischemic stroke: Code(s): I63.9 - Cerebral infarction, unspecified Status: Acute DS: Summary Hospital Course Reason for hospitalization: Chest pain Hospital Course: 69-year-old male smoker with history of stroke, seizures, coronary artery disease, hypertension, heart failure with reduced ejection fraction, and chronic obstructive pulmonary disease presented to the emergency department via EMS for evaluation of chest pain and shortness of breath. The patient provides the following history. He is a patient at the [facility] and has had several cardiac catheterizations for myocardial infarctions though no history of intervention. His most recent catheterization was in February 2024 following a syncopal episode and he was reportedly found to have 70% LAD occlusion and several other disease vessels which were treated medically.CT of the chest, abdomen, and pelvis was without acute findings but did show 7 mm and 8 mm right lung pulmonary nodules. He was started on a heparin drip and was admitted in this setting for close monitoring and Cardiology consultation. Cardiology was consulted. Underwent cardiac catheterization which showed Nonobstructive CAD with 40% diffuse stenosis in mid LAD. Large ectatic vessels with slow flow. Hospital course was further complicated with altered mental status. Stroke workup was done neurology was consulted. MRI was done which showed Left frontal and parietal lobe strok 2. CTA with total occlusion of the 2 left M2 middle cerebral artery branches. Patient will be discharged on statin, dual antiplatelet therapy. Patient to follow-up with cardiology and neurology as outpatient. Status at Discharge Overall status at discharge: patient is progressing back to baseline Time Spent with Patient Time attestation: Total time spent providing and/or coordinating discharge services: 33 minutes Exam Narrative: GENERAL: Pleasant, in no acute distress. Well-nourished. - EYES: EOMI. Anicteric. - HENT: Moist mucous membranes. - LUNGS: Clear to auscultation bilateral ly, no wheezing, rhonchi, or rales. - CARDIOVASCULAR: Regular rate and rhyth m. No murmur. No JVD. - ABDOMEN: Soft, non-tender and non-dist ended. No palpable masses. - EXTREMITIES: No edema. Peripheral puls es 2+. Non-tender. - NEUROLOGIC: No focal neurological defi cits. CN II-XII grossly intact. - PSYCHIATRIC: Awake, Alert and not orie nted x 3, patient knows his 's name Appropriate mood and affect. - LYMPH: No cervical lymphadenopathy. DS: Data Data Completed and Pending Labs on day of discharge: Labs from last 24 hours 08/16/24 06:57 Potassium 3.7 Discharge Plan Discharge Attending physician on discharge: Leonarda Donaldson Consulting providers: Alberto Norton; David Melvin Discharging Clinician: Leonarda Donaldson Anticipated Discharge Date/Time: 08/16/24 08:11 Patient Disposition: SNF Activity: as tolerated Diet: as tolerated and heart healthy Patient Instructions: Clopidogrel (By mouth), Heart Failure (GEN), How to Stop Smoking (GEN) Patient Language: Beninese Stand Alone Forms: General Discharge Information Follow-up/Referrals: Alberto Norton MD [Physician] - 2 Weeks David Melvin MD [Physician] - 3 Weeks Discharge Medications: New furosemide 40 mg Tablet 40 mg PO DAILY Qty: 60 0RF atorvastatin 40 mg Tablet 80 mg PO DAILY Qty: 60 0RF metoprolol succinate 50 mg Tablet Extended Release 24 Hr 50 mg PO QAM Qty: 60 0RF isosorbide mononitrate 30 mg Tablet Extended Release 24 Hr 30 mg PO QAM Qty: 60 0RF clopidogrel 75 mg Tablet 75 mg PO QAM Qty: 60 0RF Jardiance 10 mg Tablet 10 mg PO DAILY Qty: 60 0RF Continued albuterol 90 mcg/actuation aerosol 90 mcg inhalation QID PRN (Reason: COPD Breathing) Rx Instructions: Take 2 puffs by oral inhalation four times a day as needed for COPD breathing albuterol sulfate 2.5 mg /3 mL (0.083 %) solution for nebulization 2.5 mg inhalation Q6H PRN (Reason: shortness of breath) Rx Instructions: Inhale 1 vial (2.5mg/3ml) by nebulization every 6 hours as needed for breathing amlodipine [Norvasc] 10 mg tablet 10 mg PO HS aspirin [Adult Aspirin Regimen] 81 mg tablet,delayed release (DR/EC) 81 mg PO HS cholecalciferol (vitamin D3) 50 mcg (2,000 unit) capsule 2,000 unit PO HS Eucerin Cream 1 applic topical DAILY PRN (Reason: dry skin) Rx Instructions: Apply liberally to affected area once a day for moisturizer lidocaine 5 % adhesive patch,medicated 1 patch topical DAILY Rx Instructions: leave on most painful area for up to 12 hrs Apply to lower back naloxone [Narcan] 4 mg/actuation spray,non-aerosol 4 mg intranasal Q3M PRN (Reason: opioid overdose) Rx Instructions: spray 1 dose into ONE nostril; alternate nostrils w each dose until help arrives nicotine (polacrilex) [Nicorette] 4 mg mini lozenge 4 mg buccal Q4H PRN (Reason: nicotine cravings) omeprazole 40 mg capsule,delayed release(DR/EC) 40 mg PO HS quetiapine 50 mg tablet 50 mg PO HS sacubitril-valsartan [Entresto] 97-103 mg tablet 1 tablet PO HS spironolactone 25 mg tablet 25 mg PO DAILY Spiriva Respimat 2.5 mcg/actuation mist 2 inh inhalation HS triamcinolone acetonide 0.1 % cream 1 applic topical HS Rx Instructions: Apply thin layer to affected area on abdomen twice a day until resolved Discontinued empagliflozin 25 mg tablet 12.5 mg PO HS isosorbide mononitrate 60 mg tablet extended release 24 hr 60 mg PO HS rosuvastatin 40 mg tablet 40 mg PO HS hydralazine 25 mg tablet 25 mg PO TID metoprolol succinate 200 mg tablet extended release 24 hr 100 mg PO HS Date of admission: 08/12/24 04:18 Primary Care Provider: PHYSICIAN NOT ON STAFF,NONSTAFF Admitting Provider: Yasmine Noe Attending physician on admission: Yasmine Noe Condition: Stable
--- NOTE | 2024-08-17 07:09 | WPDCDIQUERY2 ---
CDI Query Clarification Request NSTEMI has been documented in progress note. Progress Note: A&P Assessment and Plan (3) Chest pain: Code(s): R07.9 - Chest pain, unspecified Status: Acute (4) Acute non-ST elevation myocardial infarction (NSTEMI): Discharge summary does not mention NSTEMI. Please clarify if NSEMI was ruled in or ruled out on admission.
--- NOTE | 2024-08-17 07:15 | P.CDI_ITS ---
CDI Query Clarification Request HF has been documented in progress note, Please specify type and acuity of heart failure if known. Risk Factors: Progress Note: A&P Assessment and Plan (2) Heart failure with reduced ejection fraction: Code(s): I50.20 - Unspecified systolic (congestive) heart failure Status: Acute Plan Chest pain: Code(s): R07.9 - Chest pain, unspecified Status: Acute Assessment and Plan: Patient presented with chest pain Upon arrival, patient found elevated troponin, EKG showed T-wave inversion V4 to V6 Suspecting NSTEMI Underwent cardiac catheterization 08/12. patent coronary arteries per timber watchman report. Continue aspirin, 81 mg daily p.o., Lipitor 80 mg daily p.o., Imdur 30 mg daily p.o. For the management per timber watchman Heart failure with reduced ejection fraction: Code(s): I50.20 - Unspecified systolic (congestive) heart failure Status: Acute Assessment and Plan: Decompensated Continue furosemide 40 mg b.i.d. IV push Treatment: Lasix 40 mg IV BID * Acute * Chronic * Acute on Chronic * Unknown * Systolic * Diastolic * Combined Systolic and Diastolic * Unknown Discharge summary does not mention CHF Please clarify is CHF was ruled in or ruled out on admission, if ruled in please specify type and acuity if known.
== END 2024-08-16 12:59 | DRG 280 ==
LOC: ANHED 08-12 01:01 → ANHIMU 08-12 04:28 → ANHICU 08-12 15:30 → ANHIMU 08-12 23:19 → ANH3MEDSUR 08-16 08:12 → ANHIMU 08-17 08:56
PROVIDERS: Hospitalist; Internal Medicine; Internal Medicine Interventional Cardiology; Nurse Practitioner; Physician Assistant; Admitting Provider Internal Medicine; Emergency Provider Student in an Organized Health Care Education/Training Program; Visit Provider Internal Medicine
PROC: 4A023N7 Measurement of Cardiac Sampling and Pressure, Left Heart, Percutaneous Approach (ICD-10-PCS; CPT 93452; principal; 2024-08-12 14:00)
DX: I21.4 Non-ST elevation (NSTEMI) myocardial infarction (principal); I50.23 Acute on chronic systolic (congestive) heart failure; I63.512 Cerebral infarction due to unspecified occlusion or stenosis of left middle cerebral artery; R47.01 Aphasia; I25.10 Atherosclerotic heart disease of native coronary artery without angina pectoris; I11.0 Hypertensive heart disease with heart failure; F17.210 Nicotine dependence, cigarettes, uncomplicated; J44.9 Chronic obstructive pulmonary disease, unspecified; R91.1 Solitary pulmonary nodule; R21 Rash and other nonspecific skin eruption; G47.33 Obstructive sleep apnea (adult) (pediatric); Z79.02 Long term (current) use of antithrombotics/antiplatelets; I25.2 Old myocardial infarction; Z86.73 Personal history of transient ischemic attack (TIA), and cerebral infarction without residual deficits
CPT/HCPCS: 36415; 70450; 70496; 70498; 70551; 71045; 71275; 74174; 80048; 80053; 80061; 80307; 83690; 83735; 83880; 84132; 84484; 85025; 85380; 85610; 85730; 92610; 93005; 93308; 93458; 94660; 96374; 96375; 97110; 97116; 97162; 97165; 97530; 99291; A9270; C1769; C1887; C1894; C8929; J1200; J1644; J1940; J2003; J2060; J2250; J2270; J2305; J2405; J3010; J3480; J7030; J7040; Q9957; Q9967

== ENCOUNTER 2024-08-27 11:47 | Inpatient (IN) | payer MEDICARE, OTHER, SELFPAY ==
--- NOTE | ~2024-08-27 | XR_ITS ---
CHEST RADIOGRAPH CLINICAL HISTORY: TRANSIENT ALTERATION OF AWARENESS, WEAKNESS . COMPARISON: 08/12/2024 TECHNIQUE: Single portable view of the chest. FINDINGS The cardiomediastinal silhouette is unremarkable. The lungs are clear. Visualized osseous structures and soft tissues are unremarkable. IMPRESSION: No focal infiltrate or effusion. Reviewed, dictated and finalized at location A. RONMENTAL SERVICE AIDE
--- NOTE | ~2024-08-27 | CT_ITS ---
EXAMINATION: CTA BRAIN/CAROTID DATE: 08/27/2024 12:26 INDICATION: Recent stroke presenting with worsening weakness and dysarthria TECHNIQUE: Computed tomographic angiography (CTA) of the head and neck was performed with 100 mL Omni paque-350 intravenous contrast. Multiplanar reconstructions and maximum intensity projection 3D-recon structions of the carotid arteries and of the intracranial arteries were created by the technologist on a separate workstation. Precontrast CT of the head was also obtained. Automated exposure control and iterative reconstruction technique were employed.The dose-length product was 1737.96 mGy-cm. COMPARISON: CT studies dated 08/13/2024 and MRI dated 08/14/2024 FINDINGS: Carotid arteries: Thoracic aorta is normal in caliber with minimal nonhemodynamically significant atherosclerotic plaqu e and no dissection. There is minimal atherosclerotic plaque with 0% stenosis of the right and left c arotid bulbs relative to normal distal artery lumen diameter (NASCET criteria). No evident atheroscle rotic plaque or stenosis along the bilateral vertebral arteries. Visualized upper lungs are clear. Vi sualized superior mediastinum and cervical soft tissues are unremarkable. Extensive dental disease. M oderate cervical spondylosis. Head: Interval evolution of now subacute infarcts in the left frontal and parietal lobes. No acute intracra nial hemorrhage, acute infarction or abnormal extra axial fluid collection. There is mild scattered w erika matter hypoattenuation consistent with chronic small vessel ischemic disease. Ventricles are nor mal and symmetric. No mass/mass effect. Small left and minimal right mastoid effusions. Mild mucosal thickening in the bilateral ethmoid and left maxillary sinuses. The orbits are normal. Intracranial arteries Vertebral arteries are codominant. There is no hemodynamically significant stenosis in the vertebral, basilar and internal carotid arteries. Vertebral arteries are codominant. There are no aneurysms gerri ntified. Both A1 and P1 segments are patent. There is also a small patent anterior communicating art morris. Cerebral arterial arborization appears symmetric. IMPRESSION: 1. 0% stenosis of the right and left carotid bulbs relative to normal distal artery lumen diameter (N ASCET criteria). 2. Unremarkable cerebral CT) with no thrombosis, hemodynamically significant stenosis or aneurysm. 3. Evolving now subacute infarcts in the left frontal and parietal lobes with additional mild scatter ed white matter hypoattenuation consistent with chronic small vessel ischemic disease. No acute intra cranial process. Reviewed, dictated and finalized at location A. MS COORDINATOR IMPRESSION: 1. 0% stenosis of the right and left carotid bulbs relative to normal distal ar darby lumen diameter (NASCET criteria). 2. Unremarkable cerebral CT) with no thrombosis, hemodynamically significant st enosis or aneurysm. 3. Evolving now subacute infarcts in the left frontal and parietal lobes with a dditional mild scattered white matter hypoattenuation consistent with chronic s mall vessel ischemic disease. No acute intracranial process.
[2024-08-27 11:52] VITALS: BP 103/76; PULSE 76; RESP 16; TEMP 36.6; O2SAT 99
[2024-08-27 12:03] LABS: Glucose Point of Care 120 mg/dl (65-105)
--- NOTE | 2024-08-27 12:03 | ECG_ITS ---
Test Date: 2024-08-27 12:33:39 Measurements Intervals [place] Rate: 71 P: 0 CA: 0 QRS: 16 QRSD: 134 T: 41 QT: 411 QTc: 449 Interpretive Statements ATRIAL FIBRILLATION WITH ABERRANT CONDUCTION OR VENTRICULAR PREMATURE COMPLEXES INTRAVENTRICULAR CONDUCTION DELAY VOLTAGE CRITERIA FOR LVH BORDERLINE ST-T WAVE ABNORMALITY- INF/LAT LEADS BASELINE ARTIFACT- I, II, AVR, AVL, AVF ABNORMAL ECG Compared to ECG 08/12/2024 08:36:12 HEART RATE HAS INCREASED Electronically Signed On 08-27-2024 13:02:37 CLINICAL APPEALS REVIEWER by Pedro Luis Pierce D.O.
--- NOTE | 2024-08-27 12:04 | ED_ITS ---
HPI - Neuro Symptoms/Deficit General Chief Complaint: Neuro Symptoms/Deficit <Joy Arreguin PA-C - Last Filed: 08/29/24 17:39> Stated Complaint: new stutter, R arm tremors, hx stroke/seizures <Joy Arreguin PA-C - Last Filed: 08/29/24 17:39> Time Seen by Provider: 08/27/24 12:04 <Joy Arreguin PA-C - Last Filed: 08/29/24 17:39> Focused HPI: This is a 69 year old male that presents to the ER for neurologic symptoms. Recently suffered a stroke and was admitted to our hospital. He is currently in rehab. They noticed yesterday some new weakness in his extremities and he is having some speech difficulties. He was sent in today for further evaluation. GENERAL: Well-appearing, well-nourished, and in no acute distress. HEAD: Normocephalic, atraumatic. CHEST: Clear to auscultation. ?No respiratory distress. HEART: Regular rate and rhythm.? NEURO: ?Alert and oriented x1. Patient screened in triage and initial orders placed.? ?Additional care and disposition to be based upon?diagnostic testing and treatment. <Joy Arreguin PA-C - Last Filed: 08/29/24 17:39> History of Present Illness HPI Narrative: Agree with the HPI above, during my assessment patient is alert oriented to his baseline, does have some stuttering, worsening weakness of left upper and left lower extremity, no right arm tremors as previously described in triage. Symptoms going on started yesterday morning and worse today. Outside window for treatment interventions. Left-sided deficits from recent stroke 1 week prior. < Chevy Leger MD - Last Filed: 08/27/24 21:58> Related Data Home Medications: Home Medications ?Medication ?Instructions ?Recorded ?Confirmed ?Last Taken ?Type albuterol 90 mcg/actuation aerosol 90 mcg inhalation Q6H PRN COPD 08/13/24 08/27/24 Unknown History inhaler Breathing albuterol sulfate 2.5 mg/3 mL 2.5 mg inhalation Q6H PRN 08/13/24 08/27/24 Unknown History (0.083 %) solution for nebulization shortness of breath amlodipine 10 mg tablet (Norvasc) 10 mg PO HS Angina 08/13/24 08/27/24 08/26/24 21:00 History aspirin 81 mg tablet,delayed 81 mg PO HS 08/13/24 08/27/24 08/26/24 21:00 History release (Adult Aspirin Regimen) cholecalciferol (vitamin D3) 50 2,000 unit PO DAILY 08/13/24 08/27/24 08/27/24 09:00 History mcg (2,000 unit) capsule lanolin alcohols-mineral 1 applic topical DAILY PRN dry skin 08/13/24 08/27/24 Unknown History oil-w.petrolatum-ceresin topical cream (Eucerin topical cream) naloxone 4 mg/actuation nasal 4 mg intranasal Q3M PRN opioid 08/13/24 08/27/24 Unknown History spray (Narcan) overdose nicotine (polacrilex) 4 mg buccal 4 mg buccal Q4H PRN nicotine 08/13/24 08/27/24 Unknown History mini lozenge (Nicorette) cravings omeprazole 40 mg capsule,delayed 40 mg PO HS 08/13/24 08/27/24 08/26/24 21:00 History release sacubitril 97 mg-valsartan 103 mg 1 tablet PO HS 08/13/24 08/27/24 08/26/24 21:00 History tablet (Entresto) spironolactone 25 mg tablet 25 mg PO DAILY 08/13/24 08/27/24 08/27/24 09:00 History tiotropium bromide 2.5 2 inh inhalation HS 08/13/24 08/27/24 Unknown History mcg/actuation mist for inhalation (Spiriva Respimat) triamcinolone acetonide 0.1 % 1 applic topical HS 08/13/24 08/27/24 08/26/24 21:00 History topical cream dicyclomine 20 mg tablet 20 mg PO QID PRN abdominal pain 08/27/24 08/27/24 Unknown History melatonin 5 mg capsule 5 mg PO HS PRN insomnia 08/27/24 08/27/24 Unknown History ondansetron 4 mg disintegrating 4 mg PO Q6H PRN nausea and vomiting 08/27/24 08/27/24 Unknown History tablet <Joy Arreguin PA-C - Last Filed: 08/29/24 17:39> Allergies/Adverse Reactions: Allergies Allergy/AdvReac Type Severity Reaction Status Date / Time latex Allergy Mild Hives Verified 08/12/24 05:32 <Joy Arreguin PA-C - Last Filed: 08/29/24 17:39> Review of Systems 2 Review of Systems: As reviewed above in HPI <Chevy Leger MD - Last Filed: 08/27/24 21:58> [facility] Past Medical History Medical History: Medical History Nonobstructive atherosclerosis of coronary artery Heart failure with preserved ejection fraction Chronic obstructive pulmonary disease Hypertension Tobacco dependence Cerebrovascular accident left sided weakness Coronary artery disease <Joy Arreguin PA-C - Last Filed: 08/29/24 17:39> Surgical History Surgical History: Surgical History History of cardiac catheterization <Joy Arreguin PA-C - Last Filed: 08/29/24 17:39> Family History Family History: Family History Father Acute myocardial infarction <Joy Arreguin PA-C - Last Filed: 08/29/24 17:39> Social History Social History: Social History Social History: Surrogate medical decision maker: Joan Woody, daughter ([phone]). Code status: Full code. Smoking packs per day: 1 Smoking cigarettes per day: 20.0 Years smoked: 50 Smoking pack-years: 50.00 Smoking status: Former smoker Tobacco type: cigarettes Second hand tobacco smoke exposure: No Alcohol intake: never Substance use: never Substance use type: does not use Do You Feel Safe in your Home?: No Lack of Transportation: No Lack of Food: Sometimes True Current Housing: I Have Housing Concerned About Future Housing: No Difficulty Paying Gas/Electric Bills: No Difficulty Paying for Meds: No Currently Unemployed: No Education: High School Diploma/GED Difficulty w/ Childcare or Family Care: No Spiritual care concerns: No <Joy Arreguin PA-C - Last Filed: 08/29/24 17:39> Exam 2 Narrative: GENERAL: Tearful but otherwise well-appearing, not any distress HEAD: [Normocephalic, atraumatic.] EYES: [PERRLA and EOMI.] ENT: Nares clear, no rhinorrhea or epistaxis. Mucous membranes moist. NECK: Supple. CHEST: [Clear to auscultation. No respiratory distress.] HEART: [Regular rate and rhythm]. No murmur heard. [Normal peripheral pulses.] ABDOMEN: [Soft, nondistended], [nontender], [No rigidity or guarding] EXTREMITIES: Normal range of motion. [No edema.] SKIN: Warm, dry, no rash. NEURO: Left-sided upper and lower extremity drift, expressive aphasia minor, no facial asymmetry. No right-sided deficits. Alert but has intermittent confusion, has difficulty following commands, difficulties with finger-nose testing in the left side upper and lower extremity. PSYCH: Very tearful, expresses some depression. <Chevy Leger MD - Last Filed: 08/27/24 21:58> Course Vital Signs Vital signs: Vital Signs Temperature 97.9 F 08/27/24 11:52 Pulse Rate 76 08/27/24 11:52 Respiratory Rate 16 08/27/24 11:52 Blood Pressure 103/76 08/27/24 11:52 Pulse Oximetry 99 08/27/24 11:52 Oxygen Delivery Room Air 08/27/24 11:52 Temperature 96.9 F L 08/29/24 14:00 Pulse Rate 72 08/29/24 16:00 Respiratory Rate 20 08/29/24 14:00 Blood Pressure 121/99 H 08/29/24 14:00 Pulse Oximetry 100 08/29/24 14:00 Oxygen Delivery Room Air 08/29/24 08:30 <Joy Arreguin PA-C - Last Filed: 08/29/24 17:39> Vital Signs Temperature 97.9 F 08/27/24 11:52 Pulse Rate 76 08/27/24 11:52 Respiratory Rate 16 08/27/24 11:52 Blood Pressure 103/76 08/27/24 11:52 Pulse Oximetry 99 08/27/24 11:52 Oxygen Delivery Room Air 08/27/24 11:52 Temperature 96.9 F L 08/29/24 14:00 Pulse Rate 72 08/29/24 16:00 Respiratory Rate 20 08/29/24 14:00 Blood Pressure 121/99 H 08/29/24 14:00 Pulse Oximetry 100 08/29/24 14:00 Oxygen Delivery Room Air 08/29/24 08:30 <Chevy Leger MD - Last Filed: 08/27/24 21:58> MDM - Neuro Symptoms/Deficit MDM Narrative Medical decision making narrative: 69-year-old male presented to the ER from his rehab since 2 for concerns of worsening stroke-like symptoms. Patient was just discharged from this facility 2 weeks ago after having an admission for an NSTEMI, negative cardiac catheterization was found to have an acute ischemic stroke with occlusion. He had infarcts as left frontal and left parietal lobes. Not a candidate for mechanical thrombectomy or TNK. He was admitted here, had workup with both Cardiology and Neurology and was discharged on the hospitalist service to rehabilitation. Today patient presents from their facility for concerns of more confusion, difficulty following commands, worsening weakness. Initially noted to have some tremors in his right side which is not his stroke symptom side but this was resolved during my initial assessment and not reproduced. He does have some appreciable weakness and drift in his left upper lower extremity worse in the left upper side. Intermittent confusion and very prominent dysarthria. Stuttering in his speech the apparently is worsening from baseline. Does not follow commands very well at all. He is very tearful and anxious, expresses depression and thought he would not make it through the month. Denies suicidality. Denies any chest pain, nausea, vomiting. He states he feels globally weak and has a headache. No around him with flu-like symptoms but he is at a rehab center. Vital signs within normal limits, normal blood pressure, no tachycardia, fever or hypoxia. Repeat CT angiography and CT head was obtained to see if there is any new or vomiting stroke, chest x-ray, EKG, troponin, cardiac workup ordered. He was given a fluid bolus and re-evaluated frequently. Workup shows a leukocytosis 11.3, no anemia. Normal platelet count. Coag studies within normal limits. Chemistry panel shows some minor hypokalemia 3.3 but otherwise unremarkable electrolytes. Normal renal function panel. Normal glucose. Normal hepatic function panel. Troponin is elevated 0.035, repeat pending. His previous elevations were higher than this and this could be residual or new. COVID swabs obtained, urinalysis pending. CT angiography of his head neck and CT head shows 0% stenosis in his carotid bulbs, unremarkable CT angiogram without any thrombosis or stenosis/aneurysms. Evolving subacute strokes in left frontal and parietal lobes with additional scattered white matter disease. No acute intracranial process. Chest x-ray without any focal infiltrates or effusion. Urinalysis pending. Repeat troponin pending. Patient would likely benefit from admission and repeat evaluation by Neurology given his worsening stroke symptoms without any acute findings on CT scan. Spoke to the hospitalist team currently being covered by the midlevel provider Lucy. We went over patient's imaging studies, clinical assessment, workup here and plan of care. He was accepted to the hospital under a telemetry monitored bed. Patient comfortable with this plan. <Chevy Leger MD - Last Filed: 08/27/24 21:58> Medical Records Attestation: I reviewed the patient's medical records. <Chevy Leger MD - Last Filed: 08/27/24 21:58> Lab Data Attestation: I reviewed the patient's lab results. <Chevy Leegr MD - Last Filed: 08/27/24 21:58> Result diagrams: 08/29/24 06:33 08/29/24 06:33 <Joy Arreguin PA-C - Last Filed: 08/29/24 17:39> Labs: Lab Results 08/27/24 08/27/24 08/27/24 Range/Units 12:01 12:11 12:15 WBC 11.3 H (4.5-10.0) K/mm3 RBC 5.16 (4.6-6.20) M/mm3 Hgb 14.5 (14.0-18.0) g/dL Hct 42.5 (42.0-52.0) % MCV 82.4 (80-100) fl MCH 28.1 (26-34) pg MCHC 34.1 (32-36) g/dl RDW 13.8 (11.5-14.5) % Plt Count 364 D (150-375) k/mm3 MPV 11.7 H (7.4-10.4) fl Immature Gran % (Auto) 0.4 (0-0.5) % Neut % (Auto) 78.4 H (45.5-73.1) % Lymph % (Auto) 11.6 L (18.3-44.2) % [place] % (Auto) 8.3 (2.6-8.5) % Eos % (Auto) 0.7 (0-4.4) % Baso % (Auto) 0.6 (0.2-1.2) % Lymph # (Auto) 1.31 (0.9-3.2) K/mm3 [place] # (Auto) 0.9 H (0.1-0.6) K/mm3 Eos # (Auto) 0.1 (0-0.3) K/mm3 Baso # (Auto) 0.1 (0.0-0.1) K/mm3 Abs Immat Gran (auto) 0.04 H (0.00-0.031) K/mm3 Absolute Neuts (auto) 8.9 H (1.3-6.7) K/mm3 Absolute Nucleated RBC 0.000 (0.0-0.012) K/mm3 Nucleated RBC % 0.0 (0.0-0.2) % PT 14.1 (11.1-14.7) Seconds INR 1.1 APTT 31.0 (22.3-36.8) Seconds Sodium 141 (137-145) mmol/L Potassium 3.3 L (3.4-5.0) mmol/L Chloride 105 (98-107) mmol/L Carbon Dioxide 26 (22-30) mmol/L Anion Gap 10 (4-12) mmol/L BUN 25 H (9-20) mg/dL Creatinine 0.87 (0.7-1.3) mg/dL Estim Creat Clear Calc 77 ml/min Estimated GFR > 60 (59 - ) Glucose 122 H (65-110) mg/dL POC Capillary Glucose 120 H 120 H (65-105) mg/dl Calcium 9.0 (8.4-10.2) mg/dL Total Bilirubin 1.0 (0.2-1.3) mg/dL AST 26 (17-59) U/L ALT 26 (6-50) U/L Alkaline Phosphatase 111 (38-126) U/L Troponin I 0.035 H* (0.000-0.034) ng/mL Total Protein 8.0 (6.3-8.2) g/dL Albumin 3.7 (3.5-5.1) g/dL Urine Color (Yellow) Urine Appearance (Clear) Urine pH (5.0-9.0) Ur Specific [place] (1.001-1.035) Urine Protein (Negative) mg/dL Urine Glucose (UA) (Negative) mg/dL Urine Ketones (Negative) mg/dL Ur Blood (Man) (Negative) Urine Nitrate (Negative) Urine Bilirubin (Negative) Urine Urobilinogen (<2.0) mg/dL Leukocyte Esterase Rfl (Negative) ERICH/UL Influenza A (RT-PCR) (Negative) Influenza B (RT-PCR) (Negative) RSV (RT-PCR) (Negative) SARS-CoV-2 RNA (RT-PCR) (Negative) 08/27/24 08/27/24 08/27/24 Range/Units 12:19 14:52 15:55 WBC (4.5-10.0) K/mm3 RBC (4.6-6.20) M/mm3 Hgb (14.0-18.0) g/dL Hct (42.0-52.0) % MCV (80-100) fl MCH (26-34) pg MCHC (32-36) g/dl RDW (11.5-14.5) % Plt Count (150-375) k/mm3 MPV (7.4-10.4) fl Immature Gran % (Auto) (0-0.5) % Neut % (Auto) (45.5-73.1) % Lymph % (Auto) (18.3-44.2) % [place] % (Auto) (2.6-8.5) % Eos % (Auto) (0-4.4) % Baso % (Auto) (0.2-1.2) % Lymph # (Auto) (0.9-3.2) K/mm3 [place] # (Auto) (0.1-0.6) K/mm3 Eos # (Auto) (0-0.3) K/mm3 Baso # (Auto) (0.0-0.1) K/mm3 Abs Immat Gran (auto) (0.00-0.031) K/mm3 Absolute Neuts (auto) (1.3-6.7) K/mm3 Absolute Nucleated RBC (0.0-0.012) K/mm3 Nucleated RBC % (0.0-0.2) % PT (11.1-14.7) Seconds INR APTT (22.3-36.8) Seconds Sodium (137-145) mmol/L Potassium (3.4-5.0) mmol/L Chloride (98-107) mmol/L Carbon Dioxide (22-30) mmol/L Anion Gap (4-12) mmol/L BUN (9-20) mg/dL Creatinine 1.00 (0.7-1.3) mg/dL Estim Creat Clear Calc 76 ml/min Estimated GFR > 60 (59 - ) Glucose (65-110) mg/dL POC Capillary Glucose (65-105) mg/dl Calcium (8.4-10.2) mg/dL Total Bilirubin (0.2-1.3) mg/dL AST (17-59) U/L ALT (6-50) U/L Alkaline Phosphatase (38-126) U/L Troponin I 0.033 (0.000-0.034) ng/mL Total Protein (6.3-8.2) g/dL Albumin (3.5-5.1) g/dL Urine Color Yellow (Yellow) Urine Appearance Clear (Clear) Urine pH 5.0 (5.0-9.0) Ur Specific [place] 1.033 (1.001-1.035) Urine Protein Negative (Negative) mg/dL Urine Glucose (UA) 3+ H (Negative) mg/dL Urine Ketones Negative (Negative) mg/dL Ur Blood (Man) Negative (Negative) Urine Nitrate Negative (Negative) Urine Bilirubin Negative (Negative) Urine Urobilinogen 0.2 (<2.0) mg/dL Leukocyte Esterase Rfl Negative (Negative) ERICH/UL Influenza A (RT-PCR) Negative (Negative) Influenza B (RT-PCR) Negative (Negative) RSV (RT-PCR) Negative (Negative) SARS-CoV-2 RNA (RT-PCR) Negative (Negative) <Joy Arreguin PA-C - Last Filed: 08/29/24 17:39> Lab Results 08/27/24 08/27/2408/27/25 Range/Units 12:01 12:11 12:15 WBC 11.3 H (4.5-10.0) K/mm3 RBC 5.16 (4.6-6.20) M/mm3 Hgb 14.5 (14.0-18.0) g/dL Hct 42.5 (42.0-52.0) % MCV 82.4 (80-100) fl MCH 28.1 (26-34) pg MCHC 34.1 (32-36) g/dl RDW 13.8 (11.5-14.5) % Plt Count 364 D (150-375) k/mm3 MPV 11.7 H (7.4-10.4) fl Immature Gran % (Auto) 0.4 (0-0.5) % Neut % (Auto) 78.4 H (45.5-73.1) % Lymph % (Auto) 11.6 L (18.3-44.2) % [place] % (Auto) 8.3 (2.6-8.5) % Eos % (Auto) 0.7 (0-4.4) % Baso % (Auto) 0.6 (0.2-1.2) % Lymph # (Auto) 1.31 (0.9-3.2) K/mm3 [place] # (Auto) 0.9 H (0.1-0.6) K/mm3 Eos # (Auto) 0.1 (0-0.3) K/mm3 Baso # (Auto) 0.1 (0.0-0.1) K/mm3 Abs Immat Gran (auto) 0.04 H (0.00-0.031) K/mm3 Absolute Neuts (auto) 8.9 H (1.3-6.7) K/mm3 Absolute Nucleated RBC 0.000 (0.0-0.012) K/mm3 Nucleated RBC % 0.0 (0.0-0.2) % PT 14.1 (11.1-14.7) Seconds INR 1.1 APTT 31.0 (22.3-36.8) Seconds Sodium 141 (137-145) mmol/L Potassium 3.3 L (3.4-5.0) mmol/L Chloride 105 (98-107) mmol/L Carbon Dioxide 26 (22-30) mmol/L Anion Gap 10 (4-12) mmol/L BUN 25 H (9-20) mg/dL Creatinine 0.87 (0.7-1.3) mg/dL Estim Creat Clear Calc 77 ml/min Estimated GFR > 60 (59 - ) Glucose 122 H (65-110) mg/dL POC Capillary Glucose 120 H 120 H (65-105) mg/dl Calcium 9.0 (8.4-10.2) mg/dL Total Bilirubin 1.0 (0.2-1.3) mg/dL AST 26 (17-59) U/L ALT 26 (6-50) U/L Alkaline Phosphatase 111 (38-126) U/L Troponin I 0.035 H* (0.000-0.034) ng/mL Total Protein 8.0 (6.3-8.2) g/dL Albumin 3.7 (3.5-5.1) g/dL Urine Color (Yellow) Urine Appearance (Clear) Urine pH (5.0-9.0) Ur Specific [place] (1.001-1.035) Urine Protein (Negative) mg/dL Urine Glucose (UA) (Negative) mg/dL Urine Ketones (Negative) mg/dL Ur Blood (Man) (Negative) Urine Nitrate (Negative) Urine Bilirubin (Negative) Urine Urobilinogen (<2.0) mg/dL Leukocyte Esterase Rfl (Negative) ERICH/UL Influenza A (RT-PCR) (Negative) Influenza B (RT-PCR) (Negative) RSV (RT-PCR) (Negative) SARS-CoV-2 RNA (RT-PCR) (Negative) 08/27/24 08/27/24 08/27/24 Range/Units 12:19 14:52 15:55 WBC (4.5-10.0) K/mm3 RBC (4.6-6.20) M/mm3 Hgb (14.0-18.0) g/dL Hct (42.0-52.0) % MCV (80-100) fl MCH (26-34) pg MCHC (32-36) g/dl RDW (11.5-14.5) % Plt Count (150-375) k/mm3 MPV (7.4-10.4) fl Immature Gran % (Auto) (0-0.5) % Neut % (Auto) (45.5-73.1) % Lymph % (Auto) (18.3-44.2) % [place] % (Auto) (2.6-8.5) % Eos % (Auto) (0-4.4) % Baso % (Auto) (0.2-1.2) % Lymph # (Auto) (0.9-3.2) K/mm3 [place] # (Auto) (0.1-0.6) K/mm3 Eos # (Auto) (0-0.3) K/mm3 Baso # (Auto) (0.0-0.1) K/mm3 Abs Immat Gran (auto) (0.00-0.031) K/mm3 Absolute Neuts (auto) (1.3-6.7) K/mm3 Absolute Nucleated RBC (0.0-0.012) K/mm3 Nucleated RBC % (0.0-0.2) % PT (11.1-14.7) Seconds INR APTT (22.3-36.8) Seconds Sodium (137-145) mmol/L Potassium (3.4-5.0) mmol/L Chloride (98-107) mmol/L Carbon Dioxide (22-30) mmol/L Anion Gap (4-12) mmol/L BUN (9-20) mg/dL Creatinine 1.00 (0.7-1.3) mg/dL Estim Creat Clear Calc 76 ml/min Estimated GFR > 60 (59 - ) Glucose (65-110) mg/dL POC Capillary Glucose (65-105) mg/dl Calcium (8.4-10.2) mg/dL Total Bilirubin (0.2-1.3) mg/dL AST (17-59) U/L ALT (6-50) U/L Alkaline Phosphatase (38-126) U/L Troponin I 0.033 (0.000-0.034) ng/mL Total Protein (6.3-8.2) g/dL Albumin (3.5-5.1) g/dL Urine Color Yellow (Yellow) Urine Appearance Clear (Clear) Urine pH 5.0 (5.0-9.0) Ur Specific [place] 1.033 (1.001-1.035) Urine Protein Negative (Negative) mg/dL Urine Glucose (UA) 3+ H (Negative) mg/dL Urine Ketones Negative (Negative) mg/dL Ur Blood (Man) Negative (Negative) Urine Nitrate Negative (Negative) Urine Bilirubin Negative (Negative) Urine Urobilinogen 0.2 (<2.0) mg/dL Leukocyte Esterase Rfl Negative (Negative) ERICH/UL Influenza A (RT-PCR) Negative (Negative) Influenza B (RT-PCR) Negative (Negative) RSV (RT-PCR) Negative (Negative) SARS-CoV-2 RNA (RT-PCR) Negative (Negative) <Chevy Leger MD - Last Filed: 08/27/24 21:58> Imaging Data Attestation: I personally reviewed and interpreted this imaging study as follows: < Chevy Leger MD - Last Filed: 08/27/24 21:58> My impression: Impressions Head/Neck CTA 08/27/24 12:33 IMPRESSION: 1. 0% stenosis of the right and left carotid bulbs relative to normal distal artery lumen diameter (NASCET criteria). 2. Unremarkable cerebral CT) with no thrombosis, hemodynamically significant stenosis or aneurysm. 3. Evolving now subacute infarcts in the left frontal and parietal lobes with additional mild scattered white matter hypoattenuation consistent with chronic small vessel ischemic disease. No acute intracranial process. Chest X-Ray 08/27/24 12:41 IMPRESSION: No focal infiltrate or effusion. <Chevy Leger MD - Last Filed: 08/27/24 21:58> ECG Data EKG #1: Attestation: I personally reviewed and interpreted this ECG as follows: < Chevy Leger MD - Last Filed: 08/27/24 21:58> ECG completion date: 08/27/24 <Chevy Leger MD - Last Filed: 08/27/24 21:58> ECG completion time: 14:47 <Chevy Leger MD - Last Filed: 08/27/24 21:58> Prior ECG tracings: available for review <Chevy Leger MD - Last Filed: 08/27/24 21:58> Interpretation: Sinus rhythm with frequent PVCs with different morphologies, no ST segment elevations, depressions or inversions. QTC 424, PA interval 159, ventricular rate 61. Compared to previous EKG these are not new PVCs and no overt new T-wave morphologies. Overall no acute occlusive NH findings. < Chevy Leger MD - Last Filed: 08/27/24 21:58> Critical Care Time Critical Care Time Critical Care Time: No <Joy Arreguin PA-C - Last Filed: 08/29/24 17:39> Discharge Plan Discharge Clinical Impression: Subacute confusional state of cerebrovascular origin, Dysarthria due to recent cerebrovascular accident, Weakness following cerebrovascular accident (CVA), Generalized weakness Depression Qualifiers: Depression Type: unspecified Qualified Code(s): F32.A - Depression, unspecified <Joy Arreguin PA-C - Last Filed: 08/29/24 17:39> Patient Disposition: Still a Patient <Joy Arreguin PA-C - Last Filed: 08/29/24 17:39> Condition: Stable <Joy Arreguin PA-C - Last Filed: 08/29/24 17:39> Time of Disposition: 16:45 <Joy Arreguin PA-C - Last Filed: 08/29/24 17:39> 16:45 <Chevy Leger MD - Last Filed: 08/27/24 21:58>
[2024-08-27 12:20] LABS: Basophils Absolute Auto 0.1 K/mm3 (0.0-0.1); Basophils Percent Auto 0.6 % (0.2-1.2); Eosinophils Absolute Auto 0.1 K/mm3 (0-0.3); Eosinophils Percent Auto 0.7 % (0-4.4); Hematocrit 42.5 % (42.0-52.0); Hemoglobin 14.5 g/dL (14.0-18.0); Immature Granulocyte Absolute 0.04 K/mm3 (0.00-0.031); Immature Granulocyte Percent A 0.4 % (0-0.5); Lymphocytes Absolute Auto 1.31 K/mm3 (0.9-3.2); Lymphocytes Percent Auto 11.6 % (18.3-44.2); Mean Corpuscular HGB Conc 34.1 g/dl (32-36); Mean Corpuscular Hemoglobin 28.1 pg (26-34); Mean Corpuscular Volume 82.4 fl (80-100); Mean Platelet Volume 11.7 fl (7.4-10.4); Monocytes Absolute Auto 0.9 K/mm3 (0.1-0.6); Monocytes Percent Auto 8.3 % (2.6-8.5); Neutrophils Absolute Auto 8.9 K/mm3 (1.3-6.7); Neutrophils Percent Auto 78.4 % (45.5-73.1); Platelet Count Result 364 k/mm3 (150-375); Red Blood Count 5.16 M/mm3 (4.6-6.20); Red Cell Distribution Width 13.8 % (11.5-14.5); White Blood Count 11.3 K/mm3 (4.5-10.0)
[2024-08-27 12:23] LABS: Glucose Point of Care 120 mg/dl (65-105)
--- OUTSIDE RECORDS SUMMARY | 2024-08-27 12:25 | XMS_ITS ---
Author Organization [facility] - [facility] Address Unknown Allergies, Adverse Reactions, Alerts Substance Reaction Status Noted Date Resolved Date LATEX active 08/16/2024 Medications Medication Dose Frequency Directions Start Date End Billy e Atorvastatin Calcium Tablet 80 MG 1 {tbl} Give 1 tablet by mouth at bedtime for high cholesterol 08/17/2024 Jardiance Oral Tablet 10 MG 1 {tbl} 24 h Give 1 tablet by mouth one time a day for DM 08/17/2024 Clopidogrel Bisulfate Tablet 75 MG 1 {tbl} 24 h Give 1 tablet by mouth one time a day for blood clot prevention 08/17/2024 Narcan Nasal Liquid 4 MG/0.1ML 1 {Dose} 1 dose in each nostril every 24 hours as needed for PROPHYLACTIC 08/16/2024 08/20/2024 Spiriva Respimat Inhalation Aerosol Solution 2.5 MCG/ACT 2 2 inhalation inhale orally at bedtime for COPD 08/17/2024 08/17/2024 Metoprolol Succinate ER Oral Tablet Extended Release 24 Hour 50 MG 1 {tbl} 24 h Give 1 tablet by mouth one time a day for HTN 08/17/2024 AmLODIPine Besylate Tablet 10 MG 1 {tbl} Give 1 tablet by mouth at bedtime for Angina 08/17/2024 Lidocaine Pain Relief 4 % Patch 24 h Apply to lower back topically one time a day for pain 08/18/2024 08/21/2024 Furosemide Tablet 40 MG 1 {tbl} 24 h Give 1 tablet by mouth one time a day for EDEMA 08/17/2024 Lidoderm Patch 5 % 24 h Apply to lower back topically one time a day for Pain and remove per schedule 08/17/2024 08/17/2024 Nicotine Polacrilex Mouth/Throat Gum [address] and dissolve 4 mg buccally every 4 hours as needed for nicotine craving 08/16/2024 Entresto Oral Tablet 97-103 MG 1 {tbl} Give 1 tablet by mouth at bedtime for PROPHYLACTIC 08/17/2024 Isosorbide Mononitrate ER Tablet Extended Release 24 Hour 30 MG 1 {tbl} Give 1 tablet by mouth in the morning for hypertension 08/17/2024 Cholecalciferol Tablet 1000 UNIT 2 {tbl} 24 h Give 2 tablet by mouth one time a day for SUPPLEMENT 08/17/2024 Combivent Aerosol 18-103 MCG/ACT 2 2 inhalation inhale orally every 6 hours as needed for COPD 08/16/2024 Albuterol Sulfate Inhalation Nebulization Solution (2.5 MG/3ML) 0.083% 1 1 vial inhale orally every 6 hours as needed for SOB 08/16/2024 Aspirin Low Dose Oral Tablet Chewable 81 MG 1 {tbl} Give 1 tablet by mouth at bedtime for PROPHYLACTIC 08/17/2024 Eucerin Original Healing External Lotion Apply to dry are as topically every 4 hours as needed for PROPHYLACTIC 08/16/2024 Omeprazole Oral Capsule Delayed Release 40 MG 1 {Capsule} Give 1 capsule by mouth at bedtime for GERD 08/17/2024 Triamcinolone Acetonide External Cream 0.1 % 12 h Apply to abdomen topically two times a day for apply to abdomen until resolved. 08/16/2024 08/18/2024 Incruse Ellipta 62.5 MCG/ACT Aerosol Powder, breath activated 1 24 h Give 1 puff by mouth one time a day for COPD 08/18/2024 Triamcinolone Acetonide External Cream 0.1 % Apply to abdomen topically every shift for apply to abdomen until resolved. 08/19/2024 Albuterol Sulfate HFA Inhalation Aerosol Solution 108 (90 Base) MCG/ACT 2 2 puff inhale orally every 6 hours as needed for SOB 08/20/2024 Spironolactone Oral Tablet 25 MG 1 {tbl} 24 h Give 1 tablet by mouth one time a day related to HEART FAILURE, UNSPECIFIED (I50.9) 08/21/2024 Narcan Nasal Liquid 4 MG/0.1ML 1 {Dose} 1 dose Alternating nostrils every 3 minutes as needed for PROPHYLACTIC alternate nostrils with each dose until help arrives 08/20/2024 QUEtiapine Fumarate Oral Tablet 50 MG 1 {tbl} Give 1 tablet by mouth at bedtime for SUPPLEMENT 08/21/2024 08/24/2024 Ondansetron HCl Tablet 4 MG 1 {tbl} Give 1 tablet by mouth every 6 hours as needed for Nausea / Vomiting 08/22/2024 Dicyclomine HCl Tablet 20 MG 20 mg Give 20 mg by mouth every 6 hours as needed for PROPHYLACTIC 20 mg PO QID 08/22/2024 Melatonin Capsule 5 MG 1 {Capsule} Give 1 capsule by mouth at bedtime for promote sleep related to INSOMNIA, UNSPECIFIED (G47.00) 08/25/2024 Medications Administered Medication Dose Frequency Status Start Date End Date Atorvastatin Calcium Tablet 80 MG 1 {tbl} 08/27/2024 Jardiance Oral Tablet 10 MG 1 {tbl} 24 h 08/27/2024 Clopidogrel Bisulfate Tablet 75 MG 1 {tbl} 24 h 08/27/2024 Narcan Nasal Liquid 4 MG/0.1ML 1 {Dose} 08/16/2024 Spiriva Respimat Inhalation Aerosol Solution 2.5 MCG/ACT 2 Medication Not Available 08/17/2024 Metoprolol Succinate ER Oral Tablet Extended Release 24 Hour 50 MG 1 {tbl} 24 h 08/27/2024 AmLODIPine Besylate Tablet 10 MG 1 {tbl} 08/27/2024 Lidocaine Pain Relief 4 % Patch 24 h Drug Refused 08/21/2024 Furosemide Tablet 40 MG 1 {tbl} 24 h 2024 Lidoderm Patch 5 % 24 h 08/17/2024 Nicotine Polacrilex Mouth/Throat Gum 4 MG 4 mg 08/16/2024 Entresto Oral Tablet 97-103 MG 1 {tbl} 08/27/2024 Isosorbide Mononitrate ER Tablet Extended Release 24 Hour 30 MG 1 {tbl} 08/27/2024 Cholecalciferol Tablet 1000 UNIT 2 {tbl} 24 h 08/27/2024 Combivent Aerosol 18-103 MCG/ACT 2 08/16/2024 Albuterol Sulfate Inhalation Nebulization Solution (2.5 MG/3ML) 0.083% 1 08/16/2024 Aspirin Low Dose Oral Tablet Chewable 81 MG 1 {tbl} 08/27/2024 Eucerin Original Healing External Lotion 08/16/2024 Omeprazole Oral Capsule Delayed Release 40 MG 1 {Capsule} 08/27/2024 Triamcinolone Acetonide External Cream 0.1 % 12 h 08/17/2024 Incruse Ellipta 62.5 MCG/ACT Aerosol Powder, breath activated 1 24 h 08/27/2024 Triamcinolone Acetonide External Cream 0.1 % 08/27/2024 Albuterol Sulfate HFA Inhalation Aerosol Solution 108 (90 Base) MCG/ACT 2 08/20/2024 Spironolactone Oral Tablet 25 MG 1 {tbl} 24 h 08/27/2024 Narcan Nasal Liquid 4 MG/0.1ML 1 {Dose} 08/20/2024 QUEtiapine Fumarate Oral Tablet 50 MG 1 {tbl} 08/24/2024 Ondansetron HCl Tablet 4 MG 1 {tbl} 08/22/2024 Dicyclomine HCl Tablet 20 MG 20 mg 08/22/2024 Melatonin Capsule 5 MG 1 {Capsule} 08/27 Problems Problem Status Start Date End Date UNSPECIFIED SEQUELAE OF CERE BRAL INFARCTION (Primary) (I69.30 - ICD-10-CM) ACTIVE 08/16/2024 CHRONIC OBSTRUCTIVE PULMONAR Y DISEASE, UNSPECIFIED (J44.9 - ICD-10-CM) ACTIVE 08/16/2024 HEMIPLEGIA AND HEMIPARESIS F OLLOWING CEREBRAL INFARCTION AFFECTING LEFT NON-DOMINANT SIDE (I69.354 - ICD-10-CM) ACTIVE 08/16 ATHEROSCLEROTIC HEART DISEAS E OF [place] CORONARY ARTERY WITHOUT ANGINA PECTORIS (I25.10 - ICD-10-CM) ACTIVE 08/16/2024 HEART FAILURE, UNSPECIFIED (I50.9 - ICD-10-CM) ACTIVE 08/16/2024 SOLITARY PULMONARY NODULE (R91.1 - ICD-10-CM) ACTIVE 08/16/2024 NON-ST ELEVATION (NSTEMI) MY OCARDIAL INFARCTION (I21.4 - ICD-10-CM) ACTIVE 08/16/2024 HYPERLIPIDEMIA, UNSPECIFIED (E78.5 - ICD-10-CM) ACTIVE 08/16/2024 GASTRO-ESOPHAGEAL REFLUX DIS EASE WITHOUT ESOPHAGITIS (K21.9 - ICD-10-CM) ACTIVE 08/16/2024 DEPRESSION, UNSPECIFIED (F32.A - ICD-10-CM) ACTIVE 08/16/2024 INSOMNIA, UNSPECIFIED (G47.00 - ICD-10-CM) ACTIVE 08/16/2024 ESSENTIAL (PRIMARY) HYPERTENSION (I10 - ICD-10-CM) ACT KENNETH 08/16/2024 CHEST PAIN, UNSPECIFIED (R07.9 - ICD-10-CM) ACTIVE 08/16/2024 NICOTINE DEPENDENCE, UNSPECI FIED, UNCOMPLICATED (F17.200 - ICD-10-CM) ACTIVE 08/16/2024 OTHER SEIZURES (G40.89 - ICD-10-CM) ACTIVE 08/16 Encounters Encounter Performer Performer Role Encounter Diagnoses Location [facility] - [facility] 08/16/2024 03:52 pm EST - 08/27/2024 12:34 pm EST Advance Directives Directive Description Verification Full Cardiopulmonary Resuscitation (CPR) Cardiop ulmonary Resuscitation Immunizations Vaccine Date TB 2 Step Mantoux Skin Test 08/22/2024 0 6:58 pm EST Social History Vital Signs Vital Sign Reading Time Taken painLevel 0 {score} 08/27/2024 12:39 pm EST painLevel 0 {score} 08/26/2024 10:08 pm EST painLevel 0 {score} 08/26/2024 12:53 pm EST painLevel 0 {score} 08/26/2024 10:29 am EST painLevel 0 {score} 08/26/2024 05:08 am EST painLevel 0 {score} 08/26/2024 01:32 am EST painLevel 0 {score} 08/25/2024 12:23 pm EST painLevel 0 {score} 08/25/2024 10:45 am EST painLevel 0 {score} 08/24/2024 10:07 pm EST painLevel 0 {score} 08/24/2024 11:44 am EST painLevel 0 {score} 08/24/2024 08:58 am EST painLevel 0 {score} 08/23/2024 10:47 pm EST oxygenSaturation 99 % 08/27/2024 12:0 4 pm EST oxygenSaturation 94 % 08/26/2024 10:4 4 am EST oxygenSaturation 97 % 08/25/2024 12:3 1 pm EST oxygenSaturation 96 % 08/24/2024 09:0 4 am EST heartrate 58 /min 08/27/2024 12:04 pm EST heartrate 74 /min 08/26/2024 10:43 am EST heartrate 70 /min 08/25/2024 12:31 pm EST heartrate 60 /min 08/24/2024 09:04 am EST respirations 18 /min 08/27/2024 12:04 pm EST respirations 18 /min 08/26/2024 10:43 am EST respirations 16 /min 08/25/2024 12:31 pm EST respirations 18 /min 08/24/2024 09:04 am EST temperature 98 [degF] 08/27/2024 12:04 pm EST temperature 97.5 [degF] 08/26/2024 10:43 am EST temperature 97.7 [degF] 08/25/2024 12:31 pm EST temperature 97.8 [degF] 08/24/2024 09:04 am EST systolicValue 175 mm[Hg] 08/27/2024 12:03 pm EST diastolicValue 103 mm[Hg] 08/27/2024 12:03 pm EST systolicValue 124 mm[Hg] 08/26/2024 10:44 am EST diastolicValue 68 mm[Hg] 08/26/2024 10:44 am EST systolicValue 118 mm[Hg] 08/25/2024 12:31 pm EST diastolicValue 62 mm[Hg] 08/25/2024 12:31 pm EST systolicValue 106 mm[Hg] 08/24/2024 09:04 am EST diastolicValue 58 mm[Hg] 08/24/2024 09:04 am EST
[2024-08-27 12:32] LABS: Alanine Aminotransferase 26 U/L (6-50); Albumin Level 3.7 g/dL (3.5-5.1); Alkaline Phosphatase 111 U/L (38-126); Anion Gap 10 mmol/L (4-12); Aspartate Amino Transferase 26 U/L (17-59); Blood Urea Nitrogen 25 mg/dL (9-20); Carbon Dioxide 26 mmol/L (22-30); Chloride 105 mmol/L (98-107); Estimated CRCL calculation 77 ml/min; Estimated Glomerular Filt Rate > 60; Glucose 122 mg/dL (65-110); Potassium 3.3 mmol/L (3.4-5.0); Sodium 141 mmol/L (137-145)
[2024-08-27 12:35] LABS: INR 1.1; Prothrombin Time 14.1 Seconds (11.1-14.7)
[2024-08-27 12:45] LABS: Troponin I 0.035 ng/mL (0.000-0.034)
--- NOTE | 2024-08-27 14:32 | ECG_ITS ---
Test Date: 2024-08-27 14:47:53 Measurements Intervals [place] Rate: 61 P: 34 IL: 159 QRS: 16 QRSD: 138 T: -8 QT: 420 QTc: 426 Interpretive Statements SINUS RHYTHM WITH FREQUENT VENTRICULAR PREMATURE COMPLEXES INTRAVENTRICULAR CONDUCTION DELAY VOLTAGE CRITERIA FOR LVH INFERIOR INFARCT, AGE INDETERMINATE BORDERLINE ST-T WAVE ABNORMALITY- LATERAL LEADS ABNORMAL ECG Compared to ECG 08/27/2024 12:33:39 NO SIGNIFICANT CHANGE Electronically Signed On 08-27-2024 15:06:34 ELECTRICAL ASSEMBLER by Pedro Luis Pierce D.O.
[2024-08-27 14:53] VITALS: BP 131/85; PULSE 70; RESP 16; O2SAT 98
[2024-08-27] MEDS: LACTATED RINGERS 1,000 ML 999 ML IV CONT (14:53)
[2024-08-27 14:55] VITALS: BP 131/85; PULSE 70; RESP 16; O2SAT 98
[2024-08-27 15:32] VITALS: BP 142/102; PULSE 75; RESP 21
[2024-08-27 15:35] LABS: Troponin I 0.033 ng/mL (0.000-0.034)
[2024-08-27 15:39] LABS: Influenza A QL RT-PCR Negative (Negative); Influenza B QL RT-PCR Negative (Negative); RSV RNA, RT-PCR Negative (Negative); SARS-CoV-2 RNA PCR Negative (Negative)
[2024-08-27 15:48] VITALS: BP 117/88; PULSE 73; RESP 19
[2024-08-27 16:01] LABS: Add Urine Microscopic? NO; Appearance Urine Clear (Clear); Bilirubin Urine Negative (Negative); Blood Urine Negative (Negative); Color Urine Yellow (Yellow); Glucose Urine UA 3+ mg/dL (Negative); Ketones Urine Negative (Negative); Leukocyte Esterase Ur Negative LEU/UL (Negative); Nitrate Urine Negative (Negative); Protein Urine Negative (Negative); Specific Grav Ur 1.033 (1.001-1.035); Urobilinogen Urine 0.2 mg/dL (<2.0)
--- NOTE | 2024-08-27 16:50 | P.HP_ITS ---
H&P: HPI History of Present Illness Date/Time: 08/27/24 16:50 Chief Complaint: Right-sided weakness and speech changes. Narrative: This is a 69-year-old male smoker with history of recent stroke, seizures, coronary artery disease, hypertension, heart failure with reduced ejection fraction, and chronic obstructive pulmonary disease who presented to the emergency department via EMS from a local rehab facility with complaints of right-sided weakness and speech changes. The patient is a fair historian and some of the following is supplemented via a review of his electronic medical record. He is known to myself and the hospitalist service from a recent admission on 08/12/2024 at which time he presented with chest pain and was found to have elevated troponins. He was taken to the director geophysical laboratory where he was reportedly found to have nonobstructing coronary arteries. The following day, nursing staff noticed that he was having difficulty speaking and apparently he had had periods of confusion the prior afternoon. 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 After evaluation over the phone, they reported that the patient was not a candidate for thrombectomy due to minor deficits (expressive aphasia only) and greater than 24 hours since onset of reported symptoms. Therapy documents bilateral lower extremity weakness, 4/5, and no focal deficits were noted. He was started on dual antiplatelet therapy and a statin and was discharged for rehab. He was sent in today for evaluation as staff were concerned that he was having stuttering speech and that his right side seemed to be weak. He has also had periods of confusion though that does not sound like it is a new finding. At the time my evaluation the patient is tearful and anxious. He acknowledges the stuttering speech but does not seem to think that he is experiencing much weakness. He denies vertigo, acute visual changes, facial droop, and difficulty swallowing. He also denies fever, chills, sweats, cold and flu symptoms, chest pain, palpitations, shortness of breath, nausea, vomiting, diarrhea, and dysuria. In the ED: Vital signs were stable on arrival. Labs are significant for WBC count of 11.3, potassium 3.3, BUN 25, troponin 0.035. Urinalysis was positive for 3+ glucose. Respiratory panel was negative. CT of the head and neck showed 0% stenosis of the bilateral internal carotid arteries, unremarkable cerebral CT with no evidence of thrombosis for hemodynamically significant stenosis or aneurysm, involving now subacute infarcts in the left frontal and parietal lobes. Review of Systems Review of Systems: 12 systems were reviewed and are negativ e except for as per HPI. [facility] Past Medical History Medical History (Updated 08/27/24 @ 22:41 by Lucy Jacobs PA-C) Nonobstructive atherosclerosis of coronary artery Heart failure with preserved ejection fraction Chronic obstructive pulmonary disease Hypertension Tobacco dependence Cerebrovascular accident left sided weakness Coronary artery disease Surgical History Surgical History History of cardiac catheterization Family History Family History Father Acute myocardial infarction Social History Social History (Updated 08/27/24 @ 22:35 by Lucy Jacobs PA-C) Social History: Surrogate medical decision maker: Joan Woody, daughter ([phone]). Code status: Full code. Smoking packs per day: 1 Smoking cigarettes per day: 20.0 Years smoked: 50 Smoking pack-years: 50.00 Smoking status: Former smoker Tobacco type: cigarettes Second hand tobacco smoke exposure: No Alcohol intake: never Substance use: never Substance use type: does not use Do You Feel Safe in your Home?: No Lack of Transportation: No Lack of Food: Sometimes True Current Housing: I Have Housing Concerned About Future Housing: No Difficulty Paying Gas/Electric Bills: No Difficulty Paying for Meds: No Currently Unemployed: No Education: High School Diploma/GED Difficulty w/ Childcare or Family Care: No Spiritual care concerns: No Meds Home Medications and Allergies Home Medications ?Medication ?Instructions ?Recorded ?Confirmed ?Type albuterol 90 mcg/actuation aerosol 90 mcg inhalation Q6H PRN COPD 08/13/24 08/27/24 History inhaler Breathing albuterol sulfate 2.5 mg/3 mL 2.5 mg inhalation Q6H PRN 08/13/24 08/27/24 History (0.083 %) solution for nebulization shortness of breath amlodipine 10 mg tablet (Norvasc) 10 mg PO HS Angina 08/13/24 08/27/24 History aspirin 81 mg tablet,delayed 81 mg PO HS 08/13/24 08/27/24 History release (Adult Aspirin Regimen) cholecalciferol (vitamin D3) 50 2,000 unit PO DAILY 08/13/24 08/27/24 History mcg (2,000 unit) capsule lanolin alcohols-mineral 1 applic topical DAILY PRN dry skin 08/13/24 08/27/24 History oil-w.petrolatum-ceresin topical cream (Eucerin topical cream) naloxone 4 mg/actuation nasal 4 mg intranasal Q3M PRN opioid 08/13/24 08/27/24 History spray (Narcan) overdose nicotine (polacrilex) 4 mg buccal 4 mg buccal Q4H PRN nicotine 08/13/24 08/27/24 History mini lozenge (Nicorette) cravings omeprazole 40 mg capsule,delayed 40 mg PO HS 08/13/24 08/27/24 History release sacubitril 97 mg-valsartan 103 mg 1 tablet PO HS 08/13/24 08/27/24 History tablet (Entresto) spironolactone 25 mg tablet 25 mg PO DAILY 08/13/24 08/27/24 History tiotropium bromide 2.5 2 inh inhalation HS 08/13/24 08/27/24 History mcg/actuation mist for inhalation (Spiriva Respimat) triamcinolone acetonide 0.1 % 1 applic topical HS 08/13/24 08/27/24 History topical cream atorvastatin 40 mg tablet 80 mg (2 x 40 mg) PO DAILY #60 tabs 08/15/24 08/27/24 Rx clopidogrel 75 mg tablet 75 mg PO QAM #60 tabs 08/15/24 08/27/24 Rx empagliflozin 10 mg tablet 10 mg PO DAILY #60 tabs 08/15/24 08/27/24 Rx (Jardiance) furosemide 40 mg tablet 40 mg PO DAILY #60 tabs 08/15/24 08/27/24 Rx isosorbide mononitrate 30 mg 30 mg PO QAM #60 tabs 08/15/24 08/27/24 Rx tablet,extended release 24 hr metoprolol succinate 50 mg 50 mg PO QAM #60 tabs 08/15/24 08/27/24 Rx tablet,extended release 24 hr dicyclomine 20 mg tablet 20 mg PO QID PRN abdominal pain 08/27/24 08/27/24 History melatonin 5 mg capsule 5 mg PO HS PRN insomnia 08/27/24 08/27/24 History ondansetron 4 mg disintegrating 4 mg PO Q6H PRN nausea and vomiting 08/27/24 08/27/24 History tablet Allergies Allergy/AdvReac Type Severity Reaction Status Date / Time latex Allergy Mild Hives Verified 08/12/24 05:32 Vital Signs Vital Signs - 24 hr 08/27/24 11:52 08/27/24 14:53 08/27/24 14:55 Temperature 97.9 F Pulse Rate 76 70 70 Respiratory Rate 16 16 16 Blood Pressure 103/76 131/85 131/85 Pulse Oximetry 99 98 98 Oxygen Delivery Room Air 08/27/24 15:32 Temperature Pulse Rate 75 Respiratory Rate 21 H Blood Pressure 142/102 H Pulse Oximetry Oxygen Delivery Exam Narrative: General: Nontoxic-appearing male in the semi-Flores position in bed. Weight: 100.8 kg. BMI: 31.0. HEENT: Normocephalic, atraumatic. PERRL, EOMI. Sclera anicteric. Conjunctiva mildly injected. Oral mucosa moist. Neck: Supple. No carotid bruits. Respiratory: Lungs are clear to auscultation bilaterally. Cardiovascular: Regular rate and rhythm with S1-S2. Gastrointestinal: Abdomen is soft, nontender, and nondistended with positive bowel sounds. No organomegaly. Skin: Warm and dry. No rash or lesions on limited exam. Extremities: No cyanosis, clubbing, or edema. Radial and pedal pulses intact. Neurological: Alert and oriented to name, age, and date of . He is aware that he is at the hospital. Cranial nerves 2-12 are grossly intact. Speech is occasionally stuttering but easy to understand. No facial asymmetry. No obvious pronator drift though he did not hold his arms or legs up very long before letting them fall despite repeated encouragement. Right hand electronic science teacher may be a bit weaker compared to the left. He did not seemed understand how to do rapid alternating movements or heel to shah. Muscle strength testing was unreliable due to intermittent effort and cooperation with inconsistent exam findings. Psychiatric: Cooperative, unclear if exam findings are due to poor effort or lack of understanding. Pleasantly confused. Tearful. H&P: Results Labs Labs: Short CBC 08/27/24 Range/Units 12:15 WBC 11.3 H (4.5-10.0) K/mm3 Hgb 14.5 (14.0-18.0) g/dL Hct 42.5 (42.0-52.0) % Plt Count 364 D (150-375) k/mm3 BMP 08/27/24 12:15 Sodium 141 Potassium 3.3 L Chloride 105 Carbon Dioxide 26 BUN 25 H Creatinine 0.87 Glucose 122 H Calcium 9.0 Cardiac Enzymes 08/27/24 08/27/24 Range/Units 12:15 14:52 Troponin I 0.035 H* 0.033 (0.000-0.034) ng/mL Liver Function 08/27/24 Range/Units 12:15 Total Bilirubin 1.0 (0.2-1.3) mg/dL AST 26 (17-59) U/L ALT 26 (6-50) U/L Alkaline Phosphatase 111 (38-126) U/L Albumin 3.7 (3.5-5.1) g/dL Urine 08/27/24 Range/Units 15:55 Urine Color Yellow (Yellow) Urine Appearance Clear (Clear) Urine pH 5.0 (5.0-9.0) Ur Specific [place] 1.033 (1.001-1.035) Urine Protein Negative (Negative) mg/dL Urine Glucose (UA) 3+ H (Negative) mg/dL Imaging Head/Neck CTA 08/27/24 12:33 IMPRESSION: 1. 0% stenosis of the right and left carotid bulbs relative to normal distal artery lumen diameter (NASCET criteria). 2. Unremarkable cerebral CT) with no thrombosis, hemodynamically significant stenosis or aneurysm. 3. Evolving now subacute infarcts in the left frontal and parietal lobes with additional mild scattered white matter hypoattenuation consistent with chronic small vessel ischemic disease. No acute intracranial process. Chest X-Ray 08/27/24 12:41 IMPRESSION: No focal infiltrate or effusion. Assessment and Plan Assessment and plan (1) Alteration in speech: Code(s): R47.89 - Other speech disturbances Status: Acute (2) Hypokalemia: Code(s): E87.6 - Hypokalemia Status: Acute (3) Recent cerebrovascular accident: Code(s): Z86.73 - Personal history of transient ischemic attack (TIA), and cerebral infarction without residual deficits Status: Acute (4) Hyperglycemia: Code(s): R73.9 - Hyperglycemia, unspecified Status: Acute (5) Confusion: Code(s): R41.0 - Disorientation, unspecified Status: Acute (6) Heart failure with preserved ejection fraction: Code(s): I50.30 - Unspecified diastolic (congestive) heart failure Status: Acute (7) Hypertension: Code(s): I10 - Essential (primary) hypertension Status: Acute (8) Depression: Code(s): F32.A - Depression, unspecified Status: Acute (9) Obstructive sleep apnea of adult: Code(s): G47.33 - Obstructive sleep apnea (adult) (pediatric) Status: Acute (10) Chronic obstructive pulmonary disease: Code(s): J44.9 - Chronic obstructive pulmonary disease, unspecified Status: Acute Plan The patient presented to the emergency department from his rehab facility for evaluation of speech changes and reported weakness as detailed in HPI. Labs, imaging, EKG, and all reports were personally reviewed. Head and neck CTA did not show any acute findings but showed subacute evolving strokes. This is likely responsible for the changes that we are seeing today. Continue dual anti- platelet therapy and statin. He has been having periods of confusion however that sounds like that dates back to before his last admission. Vascular dementia as a possibility. Check TSH, ammonia, B12, and drug screen to rule out other etiologies. PT/OT consulted. Potassium will be replaced and monitored. Check fasting glucose and hemoglobin A1c as his random glucose was elevated and 3+ glucose was noted in his urinalysis. He is euvolemic on exam. Vital signs were reviewed and they are stable. CPAP will be provided for the patient to use while hospitalized. No exam findings to suggest COPD exacerbation. His home medications will be reviewed and resumed as appropriate. Findings and treatment plan were discussed with the patient. Questions were solicited and answered to satisfaction. The patient's medical management will be taken over by the hospitalist team in a.m. Quality VTE Prophylaxis VTE prophylaxis: mechanical ordered If No VTE Prophylaxis Answer both mechanical and pharmacologic: Reason no pharmacologic proph: medical contraindication (patient on dual anti- platelet therapy, pharmacologic prophylaxis would put him at increased risk for bleeding.) Hospitalist MIPS Advance Care Plan I have confirmed that the patient's Advanced Care Plan is present, code status is documented, or surrogate decision maker is listed in patient medical record.: Yes Medication Reconciliation I have utilized all available resources to obtain, update and review the patients current medications (includes all prescriptions, OTC, herbals, cannabis, and nutritional supplements).: Yes
[2024-08-27 20:30] VITALS: BP 140/72; PULSE 74; RESP 20; TEMP 35.9; O2SAT 96
[2024-08-27 21:18] VITALS: BMI 30.9
--- NOTE | 2024-08-27 21:27 | ADMGEN ---
This patient, Isaias Qureshi Jr., was admitted to [facility] Surg Room 302-01. Patient/family oriented to hospital policies and general routines including ID bracelet, bed and alarms, visiting hours, pain management, procedures, bathroom and other care routines, personal items, smoking policy, room service/diet, and visiting hours. Information on how to activate the Rapid Response Team has been discussed. Patient/Family are encouraged to report perceived risks to care and to ask questions if they do not understand what they are told or what they should do.
[2024-08-28] VITALS (9 sets, daily range): BP systolic 116–135; BP diastolic 72–90; PULSE 50–69; RESP 18–20; TEMP 35.7–36; O2SAT 98–100
[2024-08-28] MEDS: amLODIPine BESYLATE 10 MG TABLET PO ×2 (02:00→20:45)
[2024-08-28] MEDS: ASPIRIN 81 MG ENTERIC TABLET PO ×2 (02:00→20:44)
[2024-08-28] MEDS: POTASSIUM CHLORIDE 20 MEQ ER TABLET 40 MEQ PO ×2 (02:35→08:48)
[2024-08-28 06:27] LABS: Ammonia < 9 umol/L (9-30)
[2024-08-28 06:48] LABS: Hematocrit 38.9 % (42.0-52.0); Hemoglobin 12.8 g/dL (14.0-18.0); Mean Corpuscular HGB Conc 32.9 g/dl (32-36); Mean Corpuscular Hemoglobin 27.5 pg (26-34); Mean Corpuscular Volume 83.7 fl (80-100); Mean Platelet Volume 11.9 fl (7.4-10.4); Platelet Count Result 292 k/mm3 (150-375); Red Blood Count 4.65 M/mm3 (4.6-6.20); Red Cell Distribution Width 13.8 % (11.5-14.5); White Blood Count 9.4 K/mm3 (4.5-10.0)
[2024-08-28 06:56] LABS: Hemoglobin A1C 5.8 % (<5.7)
[2024-08-28 06:59] LABS: Anion Gap 6 mmol/L (4-12); Blood Urea Nitrogen 23 mg/dL (9-20); Calcium 8.8 mg/dL (8.4-10.2); Carbon Dioxide 32 mmol/L (22-30); Chloride 104 mmol/L (98-107); Estimated CRCL calculation 92 ml/min; Estimated Glomerular Filt Rate > 60; Glucose 86 mg/dL (65-110); Magnesium 1.8 mg/dL (1.6-2.3); Potassium 3.4 mmol/L (3.4-5.0); Sodium 142 mmol/L (137-145)
[2024-08-28] MEDS: EMPAGLIFLOZIN 10 MG TABLET PO (08:44)
[2024-08-28] MEDS: ISOSORBIDE MONONITRATE 30 MG TAB.ER.24H PO (08:44)
[2024-08-28] MEDS: METOPROLOL SUCCINATE EXT REL 50 MG TABCR PO (08:44)
[2024-08-28] MEDS: SPIRONOLACTONE 25 MG TABLET PO (08:47)
[2024-08-28] MEDS: CHOLECALCIFEROL 1,000 UNITS TABLET 2000 UNITS PO (08:48)
[2024-08-28] MEDS: CLOPIDOGREL BISULFATE 75 MG TABLET PO (08:48)
[2024-08-28] MEDS: ATORVASTATIN 40 MG TABLET 80 MG PO (08:48)
[2024-08-28] MEDS: FUROSEMIDE 40 MG TABLET PO (08:48)
[2024-08-28 09:36] LABS: Glucose Point of Care 130 mg/dl (65-105)
--- NOTE | 2024-08-28 11:18 | P.CONNEU_ITS ---
Assessment and Plan Assessment and plan (1) Depression: Code(s): F32.A - Depression, unspecified Status: Acute (2) Acute ischemic stroke: Code(s): I63.9 - Cerebral infarction, unspecified Status: Acute (3) Hypertension: Code(s): I10 - Essential (primary) hypertension Status: Acute (4) Tobacco dependence: Code(s): F17.200 - Nicotine dependence, unspecified, uncomplicated Status: Acute (5) Recent cerebrovascular accident: Code(s): Z86.73 - Personal history of transient ischemic attack (TIA), and cerebral infarction without residual deficits Status: Acute (6) Focal seizure: Code(s): R56.9 - Unspecified convulsions Status: Acute Plan 1. Status post left hemispheric stroke that is acute infarct in the left frontal and left parietal lobe with resultant speech difficulties. This particular stroke was documented in his previous hospitalization as well 2. Sent to our hospital from the rehab for increasing speech difficulties and more weakness. Patient is still taking aspirin 81mg daily, atorvastatin 80mg daily, clopidogrel 75mg daily, 3. Question new stroke or focal seizure because of the previous stroke. Repeat CTA has not documented any new involvement of the circulation. Could very well have had either a small seizure or a new stroke. Patient is not receiving any anti convulsant I will start him on Keppra 500mg q.12 hours, and continue the treatment otherwise as such. He could very well be getting depression because of the underlying stroke, he is taking only Seroquel 50mg at night, but no antidepressant we can not start him on Lexapro 10mg daily. If any further questions arise please do not hesitate to contact me Consult date: 08/28/24 HPI: Isaias Qureshi Jr. is a 69 year old male Has been admitted to the hospital through the emergency room where he was sent from the rehab center for the complaints of increasing weakness and increasing speech difficulties. Patient has been taking multiple medications as outlined. He was noted to be stuttering in the emergency room. He has ongoing history of 1. Cerebrovascular accident 2. Tobacco dependence 3. Hypertension 4. Chronic obstructive pulmonary disease 5. Coronary artery disease 6. History of years smoked 50 but at present former smoker and no history of alcohol intake. Evaluation in the emergency room this time included the CTA which was negative for any vascular involvement but documented evolving subacute infarct in the left frontal and parietal lobe with scattered white matter hypoattenuation. Patient had been admitted to [facility] in the past on August 12, 2024 with documentation of left frontal and parietal lobe stroke by MRI, occlusion of the left M2 middle cerebral artery branches on CTA, he was started on aspirin and Plavix in addition to the atorvastatin and was transferred to the rehab. Review of Systems 2 Review of Systems: All systems reviewed & are unremarkable except as noted in HPI and below PMFSH Past Medical History Medical History Nonobstructive atherosclerosis of coronary artery Heart failure with preserved ejection fraction Chronic obstructive pulmonary disease Hypertension Tobacco dependence Cerebrovascular accident left sided weakness Coronary artery disease Surgical History Surgical History History of cardiac catheterization Family History Family History Father Acute myocardial infarction Social History Social History Social History: Surrogate medical decision maker: Joan Woody, daughter ([phone]). Code status: Full code. Smoking packs per day: 1 Smoking cigarettes per day: 20.0 Years smoked: 50 Smoking pack-years: 50.00 Smoking status: Former smoker Tobacco type: cigarettes Second hand tobacco smoke exposure: No Alcohol intake: never Substance use: never Substance use type: does not use Do You Feel Safe in your Home?: No Lack of Transportation: No Lack of Food: Sometimes True Current Housing: I Have Housing Concerned About Future Housing: No Difficulty Paying Gas/Electric Bills: No Difficulty Paying for Meds: No Currently Unemployed: No Education: High School Diploma/GED Difficulty w/ Childcare or Family Care: No Spiritual care concerns: No Meds Home Medications and Allergies Home Medications ?Medication ?Instructions ?Recorded ?Confirmed ?Type albuterol 90 mcg/actuation aerosol 90 mcg inhalation Q6H PRN COPD 08/13/24 08/27/24 History inhaler Breathing albuterol sulfate 2.5 mg/3 mL 2.5 mg inhalation Q6H PRN 08/13/24 08/27/24 History (0.083 %) solution for nebulization shortness of breath amlodipine 10 mg tablet (Norvasc) 10 mg PO HS Angina 08/13/24 08/27/24 History aspirin 81 mg tablet,delayed 81 mg PO HS 08/13/24 08/27/24 History release (Adult Aspirin Regimen) cholecalciferol (vitamin D3) 50 2,000 unit PO DAILY 08/13/24 08/27/24 History mcg (2,000 unit) capsule lanolin alcohols-mineral 1 applic topical DAILY PRN dry skin 08/13/24 08/27/24 History oil-w.petrolatum-ceresin topical cream (Eucerin topical cream) naloxone 4 mg/actuation nasal 4 mg intranasal Q3M PRN opioid 08/13/24 08/27/24 History spray (Narcan) overdose nicotine (polacrilex) 4 mg buccal 4 mg buccal Q4H PRN nicotine 08/13/24 08/27/24 History mini lozenge (Nicorette) cravings omeprazole 40 mg capsule,delayed 40 mg PO HS 08/13/24 08/27/24 History release sacubitril 97 mg-valsartan 103 mg 1 tablet PO HS 08/13/24 08/27/24 History tablet (Entresto) spironolactone 25 mg tablet 25 mg PO DAILY 08/13/24 08/27/24 History tiotropium bromide 2.5 2 inh inhalation HS 08/13/24 08/27/24 History mcg/actuation mist for inhalation (Spiriva Respimat) triamcinolone acetonide 0.1 % 1 applic topical HS 08/13/24 08/27/24 History topical cream atorvastatin 40 mg tablet 80 mg (2 x 40 mg) PO DAILY #60 tabs 08/15/24 08/27/24 Rx clopidogrel 75 mg tablet 75 mg PO QAM #60 tabs 08/15/24 08/27/24 Rx empagliflozin 10 mg tablet 10 mg PO DAILY #60 tabs 08/15/24 08/27/24 Rx (Jardiance) furosemide 40 mg tablet 40 mg PO DAILY #60 tabs 08/15/24 08/27/24 Rx isosorbide mononitrate 30 mg 30 mg PO QAM #60 tabs 08/15/24 08/27/24 Rx tablet,extended release 24 hr metoprolol succinate 50 mg 50 mg PO QAM #60 tabs 08/15/24 08/27/24 Rx tablet,extended release 24 hr dicyclomine 20 mg tablet 20 mg PO QID PRN abdominal pain 08/27/24 08/27/24 History melatonin 5 mg capsule 5 mg PO HS PRN insomnia 08/27/24 08/27/24 History ondansetron 4 mg disintegrating 4 mg PO Q6H PRN nausea and vomiting 08/27/24 08/27/24 History tablet Allergies Allergy/AdvReac Type Severity Reaction Status Date / Time latex Allergy Mild Hives Verified 08/12/24 05:32 Vital Signs Vital Signs - 24 hr 08/27/24 11:52 08/27/24 14:53 08/27/24 14:55 Temperature 36.6 C Pulse Rate 76 70 70 Respiratory Rate 16 16 16 Blood Pressure 103/76 131/85 131/85 Pulse Oximetry 99 98 98 Oxygen Delivery Room Air 08/27/24 15:32 08/27/24 15:48 08/27/24 20:30 Temperature 35.9 C L Pulse Rate 75 73 74 Respiratory Rate 21 H 19 20 Blood Pressure 142/102 H 117/88 140/72 Pulse Oximetry 96 Oxygen Delivery 08/28/24 04:35 08/28/24 08:44 08/28/24 09:37 Temperature 35.9 C L 36.0 C L Pulse Rate 50 L 60 68 Respiratory Rate 20 18 Blood Pressure 126/72 135/90 Pulse Oximetry 100 99 Oxygen Delivery Exam 2 Narrative: Exam at this time reveals him to be awake alert cooperative in no obvious acute distress ,head normocephalic with no cranial bruit, ear nose throat examination normal, neck supple with no cervical bruit no thyromegaly no lymphadenopathy, heart regular with no murmur, lungs clear to auscultation with no rhonchi or crepitations, neurological examination reveals him to be awake alert oriented to his name age and also being aware that he is at the hospital but obviously noted to be dysphasic and dysarthric pupils round regular feels the vision full extraocular movements full spontaneously with no nystagmus facial sensation intact face symmetrical tongue and oral cavity motor examination revealed him to have right hemiparesis. Obviously had difficulties in performing [id number]-kehb-to-finger and heel to knee to shah. Particularly on the ri Results Labs 08/28/24 06:12 08/28/24 06:12 Labs: Short CBC 08/27/24 08/28/24 Range/Units 12:15 06:12 WBC 11.3 H 9.4 (4.5-10.0) K/mm3 Hgb 14.5 12.8 L (14.0-18.0) g/dL Hct 42.5 38.9 L (42.0-52.0) % Plt Count 364 D 292 (150-375) k/mm3 BMP 08/27/24 08/28/24 12:15 06:12 Sodium 141 142 Potassium 3.3 L 3.4 Chloride 105 104 Carbon Dioxide 26 32 H BUN 25 H 23 H Creatinine 0.87 0.82 Glucose 122 H 86 Calcium 9.0 8.8 Cardiac Enzymes 08/27/24 08/27/24 Range/Units 12:15 14:52 Troponin I 0.035 H* 0.033 (0.000-0.034) ng/mL Liver Function 08/27/24 Range/Units 12:15 Total Bilirubin 1.0 (0.2-1.3) mg/dL AST 26 (17-59) U/L ALT 26 (6-50) U/L Alkaline Phosphatase 111 (38-126) U/L Albumin 3.7 (3.5-5.1) g/dL Urine 08/27/24 Range/Units 15:55 Urine Color Yellow (Yellow) Urine Appearance Clear (Clear) Urine pH 5.0 (5.0-9.0) Ur Specific [place] 1.033 (1.001-1.035) Urine Protein Negative (Negative) mg/dL Urine Glucose (UA) 3+ H (Negative) mg/dL
--- NOTE | 2024-08-28 11:39 | P.PNIM_ITS ---
Progress Note: A&P Assessment and Plan (1) Alteration in speech: Code(s): R47.89 - Other speech disturbances Status: Acute Assessment and Plan: * Neurology consult * Speech therapy. (2) Hypokalemia: Code(s): E87.6 - Hypokalemia Status: Acute Assessment and Plan: * Potassium 3.4 * Potassium 40 meq PO x 1. * Monitor labs. (3) Recent cerebrovascular accident: Code(s): Z86.73 - Personal history of transient ischemic attack (TIA), and cerebral infarction without residual deficits Status: Acute Assessment and Plan: * Neurology consult. * Head and neck CTA did not show any acute findings but showed subacute evolving strokes. * Continue dual anti-platelet therapy and statin. * PT/OT/ST (4) Hyperglycemia: Code(s): R73.9 - Hyperglycemia, unspecified Status: Acute Assessment and Plan: * HgbA1C 5.8% * 3+ glucose noted on urinalysis (5) Confusion: Code(s): R41.0 - Disorientation, unspecified Status: Acute Assessment and Plan: * He has been having periods of confusion however that sounds like that dates back to before his last admission. * Ammonia <9 * B12 316 * TSH 1.680 * UDS ordered. * Neurology consult (6) Heart failure with preserved ejection fraction: Code(s): I50.30 - Unspecified diastolic (congestive) heart failure Status: Acute Assessment and Plan: * Furosemide 40 mg PO daily * Jardiance 10 mg PO daily * Amlodipine 10 mg PO HS * Metoprolol Succinate 50 mg PO QAM * Sacubitril/Valsartan 97-103 mg 1 tab PO HS. * Spironolactone 25 mg PO daily. (7) Chronic obstructive pulmonary disease: Code(s): J44.9 - Chronic obstructive pulmonary disease, unspecified Status: Acute Assessment and Plan: * Incruse Ellipta 62.5 mcg 1 puff at bedtime. (8) Hypertension: Code(s): I10 - Essential (primary) hypertension Status: Acute Assessment and Plan: * Blood pressure 116/87-135/90 * Amlodipine 100 mg PO HS. * Furosemide 40 mg PO daily. * Spironolactone 25 mg PO daily. (9) Obstructive sleep apnea of adult: Code(s): G47.33 - Obstructive sleep apnea (adult) (pediatric) Status: Acute Assessment and Plan: * CPAP Subjective Date/time seen: 08/28/24 11:39 Interval history: Patient reports shortness of breath at rest at times. Patient reports occasional dizziness. Denies chest pain, palpitations, or headache. Patient reports wanting to go to [place] to be with his mom and tearful when talking about mom, he states he speaks to her daily. Patient getting frustrated at times when having trouble getting his words out. Review of Systems Review of Systems: All systems reviewed & are unremarkable except as noted in HPI and below Exam Const: General: comfortable and no acute distress Resp: Effort & Inspection: normal respiratory effort Auscultation: clear to auscultation bilaterally Cardio: Rate: regular rate Rhythm: regular rhythm GI: GI Palp: Yes Soft to palpation Auscultation: normal bowel sounds Skin: General skin exam: no rashes or lesions noted Neuro: Speech: normal speech Extrem: General: no pedal edema Psych: Other: Cooperative. Pleasantly confused. Patient getting frustrated at times when having trouble getting his words out. Patient reports wanting to go to [place] to be with his mom and tearful when talking about mom, he states he speaks to her daily. Objective Data Vital Signs Vital Signs: Vital Signs - 24 hr 08/27/24 11:52 08/27/24 14:53 08/27/24 14:55 Temperature 97.9 F Pulse Rate 76 70 70 Respiratory Rate 16 16 16 Blood Pressure 103/76 131/85 131/85 Pulse Oximetry 99 98 98 Oxygen Delivery Room Air 08/27/24 15:32 08/27/24 15:48 08/27/24 20:30 Temperature 96.7 F L Pulse Rate 75 73 74 Respiratory Rate 21 H 19 20 Blood Pressure 142/102 H 117/88 140/72 Pulse Oximetry 96 Oxygen Delivery 08/28/24 04:35 08/28/24 08:44 08/28/24 08:44 Temperature 96.6 F L Pulse Rate 50 L 60 Respiratory Rate 20 Blood Pressure 126/72 Pulse Oximetry 100 Oxygen Delivery Room Air 08/28/24 08:44 08/28/24 08:44 08/28/24 09:37 Temperature 96.8 F L Pulse Rate 67 60 68 Respiratory Rate 18 Blood Pressure 128/82 135/90 Pulse Oximetry 98 99 Oxygen Delivery Intake/Output Intake/Output: Intake & Output 08/25/24 08/26/24 08/27/24 08/28/24 23:59 23:59 23:59 23:59 Intake Total 1000 1176 Balance 1000 1176 Meds/Results Medications: Active Medications Generic Name Dose Route Start Last Admin Trade Name Freq PRN Reason Stop Dose Admin Acetaminophen 650 mg 08/27/24 22:43 Acetaminophen 325 Mg Tablet PO Q6H PRN Mild Pain (1-3) or Fever Albuterol 2 puff 08/27/24 22:51 Albuterol Sulfate (*Sp) Aerosol 1 Puff INHALATION Q6H PRN COPD Breathing Albuterol 2.5 mg 08/27/24 22:46 Albuterol Sulfate Neb 2.5 Mg/3 Ml Inh INHALATION Q6H PRN shortness of breath Amlodipine Besylate 10 mg 08/27/24 22:55 08/28/24 02:00 Amlodipine Besylate 10 Mg Tablet PO 10 mg HS FAWAD Administration Aspirin 81 mg 08/27/24 22:55 08/28/24 02:00 Aspirin 81 Mg Enteric Tablet PO 81 mg HS FAWAD Administration Atorvastatin Calcium 80 mg 08/28/24 09:00 08/28/24 08:48 Atorvastatin 40 Mg Tablet PO 80 mg DAILY FAWAD Administration Clopidogrel Bisulfate 75 mg 08/28/24 09:00 08/28/24 08:48 Clopidogrel Bisulfate 75 Mg Tablet PO 75 mg QAM FAWAD Administration Empagliflozin 10 mg 08/28/24 09:00 08/28/24 08:44 Empagliflozin 10 Mg Tablet PO 10 mg DAILY FAWAD Administration Furosemide 40 mg 08/28/24 09:00 08/28/24 08:48 Furosemide 40 Mg Tablet PO 40 mg DAILY FAWAD Administration Isosorbide Mononitrate 30 mg 08/28/24 09:00 08/28/24 08:44 Isosorbide Mononitrate 30 Mg Tab.Er.24h PO 30 mg QAM FAWAD Administration Melatonin 5 mg 08/27/24 22:46 Melatonin 5 Mg Tablet PO HS PRN insomnia Metoprolol Succinate 50 mg 08/28/24 09:00 08/28/24 08:44 Metoprolol Succinate Ext Rel 50 Mg Tabcr PO 50 mg QAM FAWAD Administration Miscellaneous Information 1 each 08/28/24 00:01 Albuterol Mdi And Albuterol Neb Prn Indication XX 09/27/24 00:00 CL[facility]IFY [facility] Miscellaneous Information 1 each 08/28/24 00:01 Narcan [place] Nonform; Ok To Hold Until Discharge? XX 09/27/24 00:00 CLARIFY [facility] Multi-Ingred Cream/Lotion/Oil/Oint 1 applic 08/27/24 22:46 Eucerin Cream 120 Gm Jar TOPICAL DAILY PRN dry skin Nicotine Polacrilex 4 mg 08/27/24 22:54 Nicotine (*Pbkc) 4 Mg Gum PO Q4H PRN nicotine cravings Non-Formulary Medication 4 mg 08/27/24 22:46 Naloxone [Narcan] NASAL Q3M PRN opioid overdose Pantoprazole Sodium 40 mg 08/28/24 21:00 Pantoprazole 40 Mg Tablet PO Q12HR [facility] Sacubitril/Valsartan 1 tab 08/28/24 21:00 Sacubitril/Valsartan 97-103 Mg Tablet PO HS [facility] Spironolactone 25 mg 08/28/24 09:00 08/28/24 08:47 Spironolactone 25 Mg Tablet PO 25 mg DAILY [facility] Administration Triamcinolone Acetonide 1 applic 08/28/24 09:00 Triamcinolone Acet 0.1% Cream 15 Gm Tube TOPICAL BID FAWAD Umeclidinium Doon 1 puff 08/27/24 23:00 Umeclidinium Doon 62.5 Mcg Ellipta INHALATION [facility] Vitamin D 2,000 units 08/28/24 09:00 08/28/24 08:48 Cholecalciferol 1,000 Units Tablet PO 2,000 units DAILY [facility] Administration Radiology Results: ITS Impressions Head/Neck CTA 08/27/24 12:33 IMPRESSION: 1. 0% stenosis of the right and left carotid bulbs relative to normal distal artery lumen diameter (NASCET criteria). 2. Unremarkable cerebral CT) with no thrombosis, hemodynamically significant stenosis or aneurysm. 3. Evolving now subacute infarcts in the left frontal and parietal lobes with additional mild scattered white matter hypoattenuation consistent with chronic small vessel ischemic disease. No acute intracranial process. Chest X-Ray 08/27/24 12:41 IMPRESSION: No focal infiltrate or effusion. Labs Labs: Laboratory Results - last 24 hr 08/27/24 08/27/24 08/27/24 12:01 12:11 12:15 WBC 11.3 H RBC 5.16 Hgb 14.5 Hct 42.5 MCV 82.4 MCH 28.1 MCHC 34.1 RDW 13.8 Plt Count 364 D MPV 11.7 H Immature Gran % (Auto) 0.4 Neut % (Auto) 78.4 H Lymph % (Auto) 11.6 L [place] % (Auto) 8.3 Eos % (Auto) 0.7 Baso % (Auto) 0.6 Lymph # (Auto) 1.31 [place] # (Auto) 0.9 H Eos # (Auto) 0.1 Baso # (Auto) 0.1 Abs Immat Gran (auto) 0.04 H Absolute Neuts (auto) 8.9 H Absolute Nucleated RBC 0.000 Nucleated RBC % 0.0 PT 14.1 INR 1.1 APTT 31.0 Sodium 141 Potassium 3.3 L Chloride 105 Carbon Dioxide 26 Anion Gap 10 BUN 25 H Creatinine 0.87 Estim Creat Clear Calc 77 Estimated GFR > 60 Glucose 122 H POC Capillary Glucose 120 H 120 H Hemoglobin A1c Calcium 9.0 Magnesium Total Bilirubin 1.0 AST 26 ALT 26 Alkaline Phosphatase 111 Ammonia Troponin I 0.035 H* Total Protein 8.0 Albumin 3.7 Vitamin B12 TSH (Reflex) Urine Color Urine Appearance Urine pH Ur Specific [place] Urine Protein Urine Glucose (UA) Urine Ketones Ur Blood (Man) Urine Nitrate Urine Bilirubin Urine Urobilinogen Leukocyte Esterase Rfl Influenza A (RT-PCR) Influenza B (RT-PCR) RSV (RT-PCR) SARS-CoV-2 RNA (RT-PCR) 08/27/24 08/27/24 08/28/24 14:52 15:55 06:12 WBC 9.4 RBC 4.65 Hgb 12.8 L Hct 38.9 L MCV 83.7 MCH 27.5 MCHC 32.9 RDW 13.8 Plt Count 292 MPV 11.9 H Immature Gran % (Auto) Neut % (Auto) Lymph % (Auto) [place] % (Auto) Eos % (Auto) Baso % (Auto) Lymph # (Auto) [place] # (Auto) Eos # (Auto) Baso # (Auto) Abs Immat Gran (auto) Absolute Neuts (auto) Absolute Nucleated RBC Nucleated RBC % PT INR APTT Sodium 142 Potassium 3.4 Chloride 104 Carbon Dioxide 32 H Anion Gap 6 BUN 23 H Creatinine 0.82 Estim Creat Clear Calc 92 Estimated GFR > 60 Glucose 86 POC Capillary Glucose Hemoglobin A1c 5.8 H Calcium 8.8 Magnesium 1.8 Total Bilirubin AST ALT Alkaline Phosphatase Ammonia < 9 L Troponin I 0.033 Total Protein Albumin Vitamin B12 316.0 TSH (Reflex) 1.680 Urine Color Yellow Urine Appearance Clear Urine pH 5.0 Ur Specific [place] 1.033 Urine Protein Negative Urine Glucose (UA) 3+ H Urine Ketones Negative Ur Blood (Man) Negative Urine Nitrate Negative Urine Bilirubin Negative Urine Urobilinogen 0.2 Leukocyte Esterase Rfl Negative Influenza A (RT-PCR) Negative Influenza B (RT-PCR) Negative RSV (RT-PCR) Negative SARS-CoV-2 RNA (RT-PCR) Negative 08/28/24 09:32 WBC RBC Hgb Hct MCV MCH MCHC RDW Plt Count MPV Immature Gran % (Auto) Neut % (Auto) Lymph % (Auto) [place] % (Auto) Eos % (Auto) Baso % (Auto) Lymph # (Auto) [place] # (Auto) Eos # (Auto) Baso # (Auto) Abs Immat Gran (auto) Absolute Neuts (auto) Absolute Nucleated RBC Nucleated RBC % PT INR APTT Sodium Potassium Chloride Carbon Dioxide Anion Gap BUN Creatinine Estim Creat Clear Calc Estimated GFR Glucose POC Capillary Glucose 130 H Hemoglobin A1c Calcium Magnesium Total Bilirubin AST ALT Alkaline Phosphatase Ammonia Troponin I Total Protein Albumin Vitamin B12 TSH (Reflex) Urine Color Urine Appearance Urine pH Ur Specific [place] Urine Protein Urine Glucose (UA) Urine Ketones Ur Blood (Man) Urine Nitrate Urine Bilirubin Urine Urobilinogen Leukocyte Esterase Rfl Influenza A (RT-PCR) Influenza B (RT-PCR) RSV (RT-PCR) SARS-CoV-2 RNA (RT-PCR) Quality VTE Prophylaxis VTE prophylaxis: mechanical ordered
[2024-08-28 14:37] LABS: Amphetamine Screen Urine Negative (Negative); Barbiturate Screen Urine Negative (Negative); Benzodiazepines Screen Urine Negative (Negative); Cannabinoid Screen Urine Negative (Negative); Cocaine Screen Urine Negative (Negative); Methadone Screen Urine Negative (Negative); Opiate Screen Urine Negative (Negative); Phencyclidine Screen Urine Negative (Negative)
[2024-08-28] MEDS: SACUBITRIL/VALSARTAN 97-103 MG TABLET 1 TAB PO (20:44)
[2024-08-28] MEDS: PANTOPRAZOLE 40 MG TABLET PO (20:45)
[2024-08-28] MEDS: UMECLIDINIUM BROMIDE 62.5 MCG ELLIPTA 1 PUFF INHALATION (21:59)
[2024-08-29] VITALS (11 sets, daily range): BP systolic 110–150; BP diastolic 86–99; PULSE 54–72; RESP 20; TEMP 36.1–36.6; O2SAT 96–100
[2024-08-29 07:37] LABS: Basophils Absolute Auto 0.1 K/mm3 (0.0-0.1); Eosinophils Absolute Auto 0.2 K/mm3 (0-0.3); Eosinophils Percent Auto 2.2 % (0-4.4); Hematocrit 41.3 % (42.0-52.0); Hemoglobin 13.7 g/dL (14.0-18.0); Immature Granulocyte Absolute 0.05 K/mm3 (0.00-0.031); Immature Granulocyte Percent A 0.5 % (0-0.5); Lymphocytes Absolute Auto 1.65 K/mm3 (0.9-3.2); Lymphocytes Percent Auto 15.7 % (18.3-44.2); Mean Corpuscular HGB Conc 33.2 g/dl (32-36); Mean Corpuscular Volume 84.3 fl (80-100); Mean Platelet Volume 12.1 fl (7.4-10.4); Monocytes Percent Auto 9.2 % (2.6-8.5); Neutrophils Absolute Auto 7.5 K/mm3 (1.3-6.7); Neutrophils Percent Auto 71.4 % (45.5-73.1); Platelet Count Result 327 k/mm3 (150-375); Red Cell Distribution Width 13.6 % (11.5-14.5); White Blood Count 10.5 K/mm3 (4.5-10.0)
[2024-08-29 07:45] LABS: Alanine Aminotransferase 23 U/L (6-50); Albumin Level 3.5 g/dL (3.5-5.1); Alkaline Phosphatase 109 U/L (38-126); Anion Gap 7 mmol/L (4-12); Aspartate Amino Transferase 27 U/L (17-59); Blood Urea Nitrogen 20 mg/dL (9-20); Calcium 8.9 mg/dL (8.4-10.2); Carbon Dioxide 32 mmol/L (22-30); Chloride 102 mmol/L (98-107); Estimated CRCL calculation 98 ml/min; Estimated Glomerular Filt Rate > 60; Glucose 84 mg/dL (65-110); Magnesium 1.9 mg/dL (1.6-2.3); Potassium 3.2 mmol/L (3.4-5.0); Sodium 141 mmol/L (137-145)
[2024-08-29] MEDS: PANTOPRAZOLE 40 MG TABLET PO ×2 (08:28→21:09)
[2024-08-29] MEDS: CLOPIDOGREL BISULFATE 75 MG TABLET PO (08:28)
[2024-08-29] MEDS: POTASSIUM CHLORIDE 20 MEQ ER TABLET 40 MEQ PO ×2 (08:28→13:03)
[2024-08-29] MEDS: ATORVASTATIN 40 MG TABLET 80 MG PO (08:29)
[2024-08-29] MEDS: FUROSEMIDE 40 MG TABLET PO (08:29)
[2024-08-29] MEDS: ISOSORBIDE MONONITRATE 30 MG TAB.ER.24H PO (08:29)
[2024-08-29] MEDS: EMPAGLIFLOZIN 10 MG TABLET PO (08:29)
[2024-08-29] MEDS: SPIRONOLACTONE 25 MG TABLET PO (08:29)
[2024-08-29] MEDS: METOPROLOL SUCCINATE EXT REL 50 MG TABCR PO (08:29)
[2024-08-29] MEDS: CHOLECALCIFEROL 1,000 UNITS TABLET 2000 UNITS PO (08:29)
--- NOTE | 2024-08-29 11:54 | P.PNIM_ITS ---
Progress Note: A&P Assessment and Plan (1) Alteration in speech: Code(s): R47.89 - Other speech disturbances Status: Acute Assessment and Plan: * Neurology consult. * Speech therapy. (2) Hypokalemia: Code(s): E87.6 - Hypokalemia Status: Acute Assessment and Plan: * Potassium 3.2 * Potassium 40 meq PO x 2. * Monitor labs. (3) Recent cerebrovascular accident: Code(s): Z86.73 - Personal history of transient ischemic attack (TIA), and cerebral infarction without residual deficits Status: Acute Assessment and Plan: * Neurology consult. Recommend adding Lexapro 10 mg PO daily. * Head and neck CTA did not show any acute findings but showed subacute evolving strokes. * Continue dual anti-platelet therapy and statin. * PT/OT/ST (4) Hyperglycemia: Code(s): R73.9 - Hyperglycemia, unspecified Status: Acute Assessment and Plan: * HgbA1C 5.8% * 3+ glucose noted on urinalysis (5) Confusion: Code(s): R41.0 - Disorientation, unspecified Status: Acute Assessment and Plan: * He has been having periods of confusion however that sounds like that dates back to before his last admission. * Ammonia <9 * B12 316 * TSH 1.680 * UDS negative. * Neurology consult (6) Heart failure with preserved ejection fraction: Code(s): I50.30 - Unspecified diastolic (congestive) heart failure Status: Acute Assessment and Plan: * Furosemide 40 mg PO daily * Jardiance 10 mg PO daily * Amlodipine 10 mg PO HS * Metoprolol Succinate 50 mg PO QAM * Sacubitril/Valsartan 97-103 mg 1 tab PO HS. * Spironolactone 25 mg PO daily. (7) Chronic obstructive pulmonary disease: Code(s): J44.9 - Chronic obstructive pulmonary disease, unspecified Status: Acute Assessment and Plan: * Incruse Ellipta 62.5 mcg 1 puff at bedtime. (8) Hypertension: Code(s): I10 - Essential (primary) hypertension Status: Acute Assessment and Plan: * Blood pressure 150/90. * Amlodipine 10 mg PO HS. * Furosemide 40 mg PO daily. * Spironolactone 25 mg PO daily. (9) Obstructive sleep apnea of adult: Code(s): G47.33 - Obstructive sleep apnea (adult) (pediatric) Status: Acute Assessment and Plan: * CPAP (10) Depression: Code(s): F32.A - Depression, unspecified Status: Acute Assessment and Plan: * Add Lexapro 10 mg PO daily. Subjective Date/time seen: 08/29/24 11:54 Interval history: Patient reports doing well with therapy. Patient denies chest pain, palpitations, headache, dizziness, nausea, or vomiting. Patient thankful for help. Patient reports that he would like to start on medication for mood recommended by neurologist. Review of Systems Review of Systems: All systems reviewed & are unremarkable except as noted in HPI and below Exam Const: General: comfortable and no acute distress Resp: Effort & Inspection: normal respiratory effort Auscultation: clear to auscultation bilaterally Cardio: Rate: regular rate Rhythm: regular rhythm Other: Telemetry SR 80. GI: GI Palp: Yes Soft to palpation Auscultation: normal bowel sounds Extrem: General: no pedal edema Psych: Other: Calm and cooperative. Objective Data Vital Signs Vital Signs: Vital Signs - 24 hr 08/28/24 12:00 08/28/24 14:00 08/28/24 16:00 Temperature 96.4 F L Pulse Rate 58 L 60 69 Respiratory Rate 20 Blood Pressure 116/87 Pulse Oximetry 98 Oxygen Delivery 08/28/24 20:00 08/28/24 21:30 08/28/24 21:59 Temperature 96.3 F L Pulse Rate 56 L 62 62 Respiratory Rate 18 18 Blood Pressure 124/74 Pulse Oximetry 99 Oxygen Delivery 08/29/24 00:00 08/29/24 04:00 08/29/24 04:40 Temperature 97.1 F L Pulse Rate 66 55 L 54 L Respiratory Rate 20 Blood Pressure 129/91 H Pulse Oximetry 99 Oxygen Delivery 08/29/24 08:00 08/29/24 08:29 08/29/24 08:30 Temperature Pulse Rate 67 71 Respiratory Rate Blood Pressure Pulse Oximetry Oxygen Delivery Room Air 08/29/24 08:30 Temperature Pulse Rate 71 Respiratory Rate Blood Pressure 150/90 H Pulse Oximetry 96 Oxygen Delivery Intake/Output Intake/Output: Intake & Output 08/26/24 08/27/24 08/28/24 08/29/24 23:59 23:59 23:59 23:59 Intake Total 1000 1416 337 Output Total 500 600 Balance 1000 005 -289 Meds/Results Medications: Active Medications Generic Name Dose Route Start Last Admin Trade Name Freq PRN Reason Stop Dose Admin Acetaminophen 650 mg 08/27/24 22:43 Acetaminophen 325 Mg Tablet PO Q6H PRN Mild Pain (1-3) or Fever Albuterol 2 puff 08/27/24 22:51 Albuterol Sulfate (*Sp) Aerosol 1 Puff INHALATION Q6H PRN COPD Breathing Albuterol 2.5 mg 08/27/24 22:46 Albuterol Sulfate Neb 2.5 Mg/3 Ml Inh INHALATION Q6H PRN shortness of breath Amlodipine Besylate 10 mg 08/27/24 22:55 08/28/24 20:45 Amlodipine Besylate 10 Mg Tablet PO 10 mg HS FAWAD Administration Aspirin 81 mg 08/27/24 22:55 08/28/24 20:44 Aspirin 81 Mg Enteric Tablet PO 81 mg HS FAWAD Administration Atorvastatin Calcium 80 mg 08/28/24 09:00 08/29/24 08:29 Atorvastatin 40 Mg Tablet PO 80 mg DAILY FAWAD Administration Clopidogrel Bisulfate 75 mg 08/28/24 09:00 08/29/24 08:28 Clopidogrel Bisulfate 75 Mg Tablet PO 75 mg QAM FAWAD Administration Empagliflozin 10 mg 08/28/24 09:00 08/29/24 08:29 Empagliflozin 10 Mg Tablet PO 10 mg DAILY FAWAD Administration Furosemide 40 mg 08/28/24 09:00 08/29/24 08:29 Furosemide 40 Mg Tablet PO 40 mg DAILY FAWAD Administration Isosorbide Mononitrate 30 mg 08/28/24 09:00 08/29/24 08:29 Isosorbide Mononitrate 30 Mg Tab.Er.24h PO 30 mg QAM FAWAD Administration Melatonin 5 mg 08/27/24 22:46 Melatonin 5 Mg Tablet PO HS PRN insomnia Metoprolol Succinate 50 mg 08/28/24 09:00 08/29/24 08:29 Metoprolol Succinate Ext Rel 50 Mg Tabcr PO 50 mg QAM FAWAD Administration Multi-Ingred Cream/Lotion/Oil/Oint 1 applic 08/27/24 22:46 Eucerin Cream 120 Gm Jar TOPICAL DAILY PRN dry skin Nicotine Polacrilex 4 mg 08/27/24 22:54 Nicotine (*Pbkc) 4 Mg Gum PO Q4H PRN nicotine cravings Pantoprazole Sodium 40 mg 08/28/24 21:00 08/29/24 08:28 Pantoprazole 40 Mg Tablet PO 40 mg Q12HR FAWAD Administration Potassium Chloride 40 meq 08/29/24 13:00 Potassium Chloride 20 Meq Er Tablet PO 08/29/24 13:01 ONCE ONE Sacubitril/Valsartan 1 tab 08/28/24 21:00 08/28/24 20:44 Sacubitril/Valsartan 97-103 Mg Tablet PO 1 tab HS FAWAD Administration Spironolactone 25 mg 08/28/24 09:00 08/29/24 08:29 Spironolactone 25 Mg Tablet PO 25 mg DAILY FAWAD Administration Triamcinolone Acetonide 1 applic 08/28/24 09:00 08/29/24 08:30 Triamcinolone Acet 0.1% Cream 15 Gm Tube TOPICAL Not Given BID [facility] Umeclidinium [place] 1 puff 08/27/24 23:00 08/28/24 21:59 Umeclidinium [place] 62.5 Mcg Ellipta INHALATION 1 puff HS [facility] Administration Vitamin D 2,000 units 08/28/24 09:00 08/29/24 08:29 Cholecalciferol 1,000 Units Tablet PO 2,000 units DAILY FAWAD Administration Radiology Results: ITS Impressions Head/Neck CTA 08/27/24 12:33 IMPRESSION: 1. 0% stenosis of the right and left carotid bulbs relative to normal distal artery lumen diameter (NASCET criteria). 2. Unremarkable cerebral CT) with no thrombosis, hemodynamically significant stenosis or aneurysm. 3. Evolving now subacute infarcts in the left frontal and parietal lobes with additional mild scattered white matter hypoattenuation consistent with chronic small vessel ischemic disease. No acute intracranial process. Chest X-Ray 08/27/24 12:41 IMPRESSION: No focal infiltrate or effusion. Labs Labs: Laboratory Results - last 24 hr 08/28/24 08/29/24 14:05 06:33 WBC 10.5 H RBC 4.90 Hgb 13.7 L Hct 41.3 L MCV 84.3 MCH 28.0 MCHC 33.2 RDW 13.6 Plt Count 327 MPV 12.1 H Immature Gran % (Auto) 0.5 Neut % (Auto) 71.4 Lymph % (Auto) 15.7 L [place] % (Auto) 9.2 H Eos % (Auto) 2.2 Baso % (Auto) 1.0 Lymph # (Auto) 1.65 [place] # (Auto) 1.0 H Eos # (Auto) 0.2 Baso # (Auto) 0.1 Abs Immat Gran (auto) 0.05 H Absolute Neuts (auto) 7.5 H Absolute Nucleated RBC 0.000 Nucleated RBC % 0.0 Sodium 141 Potassium 3.2 L Chloride 102 Carbon Dioxide 32 H Anion Gap 7 BUN 20 Creatinine 0.76 Estim Creat Clear Calc 98 Estimated GFR > 60 Glucose 84 Calcium 8.9 Magnesium 1.9 Total Bilirubin 1.0 AST 27 ALT 23 Alkaline Phosphatase 109 Total Protein 7.0 Albumin 3.5 Urine Opiates Screen Negative Urine Methadone Screen Negative Ur Barbiturates Screen Negative Ur Phencyclidine Scrn Negative Ur Amphetamine Screen Negative U Benzodiazepines Scrn Negative Urine Cocaine Screen Negative U Cannabinoids Screen Negative Quality VTE Prophylaxis VTE prophylaxis: mechanical ordered
[2024-08-29] MEDS: ESCITALOPRAM OXALATE 10 MG TABLET PO (13:03)
[2024-08-29 17:17] LABS: Estimated CRCL calculation 76 ml/min; Estimated Glomerular Filt Rate > 60
[2024-08-29] MEDS: TRIAMCINOLONE ACET 0.1% CREAM 15 GM TUBE 1 APPLIC TOPICAL (18:22)
[2024-08-29] MEDS: SACUBITRIL/VALSARTAN 97-103 MG TABLET 1 TAB PO (21:09)
[2024-08-29] MEDS: ASPIRIN 81 MG ENTERIC TABLET PO (21:09)
[2024-08-29] MEDS: amLODIPine BESYLATE 10 MG TABLET PO (21:09)
[2024-08-29] MEDS: MELATONIN 5 MG TABLET PO (22:15)
[2024-08-30] VITALS (10 sets, daily range): BP systolic 107–121; BP diastolic 76–80; PULSE 53–67; RESP 14–17; TEMP 36.2–36.3; O2SAT 96–98
[2024-08-30 05:47] LABS: Basophils Absolute Auto 0.1 K/mm3 (0.0-0.1); Eosinophils Absolute Auto 0.2 K/mm3 (0-0.3); Eosinophils Percent Auto 1.9 % (0-4.4); Hematocrit 41.6 % (42.0-52.0); Hemoglobin 13.9 g/dL (14.0-18.0); Immature Granulocyte Absolute 0.04 K/mm3 (0.00-0.031); Immature Granulocyte Percent A 0.4 % (0-0.5); Lymphocytes Absolute Auto 2.14 K/mm3 (0.9-3.2); Lymphocytes Percent Auto 19.3 % (18.3-44.2); Mean Corpuscular HGB Conc 33.4 g/dl (32-36); Mean Corpuscular Hemoglobin 28.1 pg (26-34); Mean Platelet Volume 11.8 fl (7.4-10.4); Monocytes Percent Auto 8.6 % (2.6-8.5); Neutrophils Absolute Auto 7.6 K/mm3 (1.3-6.7); Neutrophils Percent Auto 68.8 % (45.5-73.1); Platelet Count Result 345 k/mm3 (150-375); Red Blood Count 4.95 M/mm3 (4.6-6.20); Red Cell Distribution Width 13.8 % (11.5-14.5); White Blood Count 11.1 K/mm3 (4.5-10.0)
[2024-08-30 06:07] LABS: Alanine Aminotransferase 26 U/L (6-50); Albumin Level 3.5 g/dL (3.5-5.1); Alkaline Phosphatase 106 U/L (38-126); Anion Gap 10 mmol/L (4-12); Aspartate Amino Transferase 32 U/L (17-59); Bilirubin,Total 1.2 mg/dL (0.2-1.3); Blood Urea Nitrogen 22 mg/dL (9-20); Calcium 9.1 mg/dL (8.4-10.2); Carbon Dioxide 26 mmol/L (22-30); Chloride 103 mmol/L (98-107); Estimated CRCL calculation 84 ml/min; Estimated Glomerular Filt Rate > 60; Glucose 100 mg/dL (65-110); Magnesium 1.8 mg/dL (1.6-2.3); Potassium 3.7 mmol/L (3.4-5.0); Sodium 139 mmol/L (137-145)
[2024-08-30] MEDS: ESCITALOPRAM OXALATE 10 MG TABLET PO (09:51)
[2024-08-30] MEDS: FUROSEMIDE 40 MG TABLET PO (09:51)
[2024-08-30] MEDS: PANTOPRAZOLE 40 MG TABLET PO ×2 (09:51→21:07)
[2024-08-30] MEDS: EMPAGLIFLOZIN 10 MG TABLET PO (09:51)
[2024-08-30] MEDS: SPIRONOLACTONE 25 MG TABLET PO (09:51)
[2024-08-30] MEDS: CHOLECALCIFEROL 1,000 UNITS TABLET 2000 UNITS PO (09:52)
[2024-08-30] MEDS: ATORVASTATIN 40 MG TABLET 80 MG PO (09:52)
[2024-08-30] MEDS: METOPROLOL SUCCINATE EXT REL 50 MG TABCR PO (09:52)
[2024-08-30] MEDS: ISOSORBIDE MONONITRATE 30 MG TAB.ER.24H PO (09:53)
[2024-08-30] MEDS: CLOPIDOGREL BISULFATE 75 MG TABLET PO (09:53)
[2024-08-30] MEDS: TRIAMCINOLONE ACET 0.1% CREAM 15 GM TUBE 1 APPLIC TOPICAL ×2 (09:53→17:09)
--- NOTE | 2024-08-30 10:55 | PC.NURSE ---
The TELE monitor system was down
--- NOTE | 2024-08-30 12:16 | P.PNIM_ITS ---
Progress Note: A&P Assessment and Plan (1) Alteration in speech: Code(s): R47.89 - Other speech disturbances Status: Acute Assessment and Plan: * Neurology consult, appreciate recommendations. * Speech therapy. (2) Hypokalemia: Code(s): E87.6 - Hypokalemia Status: Acute Assessment and Plan: * Potassium 3.7, improved. * Monitor labs. (3) Recent cerebrovascular accident: Code(s): Z86.73 - Personal history of transient ischemic attack (TIA), and cerebral infarction without residual deficits Status: Acute Assessment and Plan: * Neurology consult. Recommend adding Lexapro 10 mg PO daily. * Head and neck CTA did not show any acute findings but showed subacute evolving strokes. * Continue dual anti-platelet therapy and statin. * PT/OT/ST (4) Hyperglycemia: Code(s): R73.9 - Hyperglycemia, unspecified Status: Acute Assessment and Plan: * HgbA1C 5.8% * 3+ glucose noted on urinalysis (5) Confusion: Code(s): R41.0 - Disorientation, unspecified Status: Acute Assessment and Plan: * He has been having periods of confusion however that sounds like that dates back to before his last admission. * Ammonia <9 * B12 316 * TSH 1.680 * UDS negative. * Neurology consult (6) Heart failure with preserved ejection fraction: Code(s): I50.30 - Unspecified diastolic (congestive) heart failure Status: Acute Assessment and Plan: * Furosemide 40 mg PO daily * Jardiance 10 mg PO daily * Amlodipine 10 mg PO HS * Metoprolol Succinate 50 mg PO QAM * Sacubitril/Valsartan 97-103 mg 1 tab PO HS. * Spironolactone 25 mg PO daily. (7) Chronic obstructive pulmonary disease: Code(s): J44.9 - Chronic obstructive pulmonary disease, unspecified Status: Acute Assessment and Plan: * Incruse Ellipta 62.5 mcg 1 puff at bedtime. (8) Hypertension: Code(s): I10 - Essential (primary) hypertension Status: Acute Assessment and Plan: * Blood pressure 107/80. * Amlodipine 10 mg PO HS. * Furosemide 40 mg PO daily. * Spironolactone 25 mg PO daily. (9) Obstructive sleep apnea of adult: Code(s): G47.33 - Obstructive sleep apnea (adult) (pediatric) Status: Acute Assessment and Plan: * CPAP (10) Depression: Qualifiers: Depression Type: unspecified Qualified Code(s): F32.A - Depression, unspecified Code(s): F32.A - Depression, unspecified Status: Acute Assessment and Plan: * Lexapro 10 mg PO daily. Subjective Date/time seen: 08/30/24 12:16 Interval history: Patient denies chest pain, palpitations, headache, dizziness, nausea, or vomiting. Reports doing well with therapy. Review of Systems Review of Systems: All systems reviewed & are unremarkable except as noted in HPI and below Exam Const: General: comfortable and no acute distress Resp: Effort & Inspection: normal respiratory effort Auscultation: clear to auscultation bilaterally Cardio: Rate: regular rate Rhythm: regular rhythm Other: Telemetry- SR 62. GI: GI Palp: Yes Soft to palpation Auscultation: normal bowel sounds Neuro: Other: Speech difficulties at times getting words out. Extrem: General: no pedal edema Psych: Other: Calm and cooperative. Objective Data Vital Signs Vital Signs: Vital Signs - 24 hr 08/29/24 14:00 08/29/24 16:00 08/29/24 20:00 Temperature 96.9 F L Pulse Rate 63 72 62 Respiratory Rate 20 Blood Pressure 121/99 H Pulse Oximetry 100 Oxygen Delivery 08/29/24 21:11 08/30/24 00:00 08/30/24 04:00 Temperature 97.8 F Pulse Rate 59 L 62 55 L Respiratory Rate 20 Blood Pressure 110/86 Pulse Oximetry 97 Oxygen Delivery 08/30/24 05:14 08/30/24 08:00 08/30/24 08:00 Temperature 97.4 F L Pulse Rate 61 67 Respiratory Rate 16 Blood Pressure 107/80 Pulse Oximetry 96 Oxygen Delivery Room Air 08/30/24 09:52 Temperature Pulse Rate 61 Respiratory Rate Blood Pressure Pulse Oximetry Oxygen Delivery Intake/Output Intake/Output: Intake & Output 08/27/24 08/28/24 08/29/24 08/30/24 23:59 23:59 23:59 23:59 Intake Total 1000 1416 1497 418 Output Total 500 700 Balance 1000 916 797 418 Meds/Results Medications: Active Medications Generic Name Dose Route Start Last Admin Trade Name Freq PRN Reason Stop Dose Admin Acetaminophen 650 mg 08/27/24 22:43 Acetaminophen 325 Mg Tablet PO Q6H PRN Mild Pain (1-3) or Fever Albuterol 2 puff 08/27/24 22:51 Albuterol Sulfate (*Sp) Aerosol 1 Puff INHALATION Q6H PRN COPD Breathing Albuterol 2.5 mg 08/27/24 22:46 Albuterol Sulfate Neb 2.5 Mg/3 Ml Inh INHALATION Q6H PRN shortness of breath Amlodipine Besylate 10 mg 08/27/24 22:55 08/29/24 21:09 Amlodipine Besylate 10 Mg Tablet PO 10 mg HS FAWAD Administration Aspirin 81 mg 08/27/24 22:55 08/29/24 21:09 Aspirin 81 Mg Enteric Tablet PO 81 mg HS FAWAD Administration Atorvastatin Calcium 80 mg 08/28/24 09:00 08/30/24 09:52 Atorvastatin 40 Mg Tablet PO 80 mg DAILY FAWAD Administration Clopidogrel Bisulfate 75 mg 08/28/24 09:00 08/30/24 09:53 Clopidogrel Bisulfate 75 Mg Tablet PO 75 mg QAM FAWAD Administration Empagliflozin 10 mg 08/28/24 09:00 08/30/24 09:51 Empagliflozin 10 Mg Tablet PO 10 mg DAILY FAWAD Administration Escitalopram Oxalate 10 mg 08/29/24 12:05 08/30/24 09:51 Escitalopram Oxalate 10 Mg Tablet PO 10 mg DAILY FAWAD Administration Furosemide 40 mg 08/28/24 09:00 08/30/24 09:51 Furosemide 40 Mg Tablet PO 40 mg DAILY FAWAD Administration Isosorbide Mononitrate 30 mg 08/28/24 09:00 08/30/24 09:53 Isosorbide Mononitrate 30 Mg Tab.Er.24h PO 30 mg QAM FAWAD Administration Melatonin 5 mg 08/27/24 22:46 08/29/24 22:15 Melatonin 5 Mg Tablet PO 5 mg HS PRN Administration insomnia Metoprolol Succinate 50 mg 08/28/24 09:00 08/30/24 09:52 Metoprolol Succinate Ext Rel 50 Mg Tabcr PO 50 mg QAM FAWAD Administration Multi-Ingred Cream/Lotion/Oil/Oint 1 applic 08/27/24 22:46 Eucerin Cream 120 Gm Jar TOPICAL DAILY PRN dry skin Nicotine Polacrilex 4 mg 08/27/24 22:54 Nicotine (*Pbkc) 4 Mg Gum PO Q4H PRN nicotine cravings Pantoprazole Sodium 40 mg 08/28/24 21:00 08/30/24 09:51 Pantoprazole 40 Mg Tablet PO 40 mg Q12HR FAWAD Administration Sacubitril/Valsartan 1 tab 08/28/24 21:00 08/29/24 21:09 Sacubitril/Valsartan 97-103 Mg Tablet PO 1 tab HS FAWAD Administration Spironolactone 25 mg 08/28/24 09:00 08/30/24 09:51 Spironolactone 25 Mg Tablet PO 25 mg DAILY FAWAD Administration Triamcinolone Acetonide 1 applic 08/28/24 09:00 08/30/24 09:53 Triamcinolone Acet 0.1% Cream 15 Gm Tube TOPICAL 1 applic BID FAWAD Administration Umeclidinium [place] 1 puff 08/27/24 23:00 08/29/24 15:36 Umeclidinium [place] 62.5 Mcg Ellipta INHALATION Not Given HS [facility] Vitamin D 2,000 units 08/28/24 09:00 08/30/24 09:52 Cholecalciferol 1,000 Units Tablet PO 2,000 units DAILY FAWAD Administration Radiology Results: ITS Impressions Head/Neck CTA 08/27/24 12:33 IMPRESSION: 1. 0% stenosis of the right and left carotid bulbs relative to normal distal artery lumen diameter (NASCET criteria). 2. Unremarkable cerebral CT) with no thrombosis, hemodynamically significant stenosis or aneurysm. 3. Evolving now subacute infarcts in the left frontal and parietal lobes with additional mild scattered white matter hypoattenuation consistent with chronic small vessel ischemic disease. No acute intracranial process. Chest X-Ray 08/27/24 12:41 IMPRESSION: No focal infiltrate or effusion. Labs Labs: Laboratory Results - last 24 hr 08/27/24 08/30/24 12:19 05:09 WBC 11.1 H RBC 4.95 Hgb 13.9 L Hct 41.6 L MCV 84.0 MCH 28.1 MCHC 33.4 RDW 13.8 Plt Count 345 MPV 11.8 H Immature Gran % (Auto) 0.4 Neut % (Auto) 68.8 Lymph % (Auto) 19.3 [place] % (Auto) 8.6 H Eos % (Auto) 1.9 Baso % (Auto) 1.0 Lymph # (Auto) 2.14 [place] # (Auto) 1.0 H Eos # (Auto) 0.2 Baso # (Auto) 0.1 Abs Immat Gran (auto) 0.04 H Absolute Neuts (auto) 7.6 H Absolute Nucleated RBC 0.000 Nucleated RBC % 0.0 Sodium 139 Potassium 3.7 Chloride 103 Carbon Dioxide 26 Anion Gap 10 BUN 22 H Creatinine 1.00 0.79 Estim Creat Clear Calc 76 84 Estimated GFR > 60 > 60 Glucose 100 Calcium 9.1 Magnesium 1.8 Total Bilirubin 1.2 AST 32 ALT 26 Alkaline Phosphatase 106 Total Protein 7.0 Albumin 3.5 Quality VTE Prophylaxis VTE prophylaxis: mechanical ordered
--- NOTE | 2024-08-30 15:21 | PC.NURSE ---
RN spoke with Shruti regarding pt having a fixed pupil along with L sided facial tingling. Pt states that he can't see out of his left eye when RN did the vision/peripheral test
[2024-08-30] MEDS: UMECLIDINIUM BROMIDE 62.5 MCG ELLIPTA 1 PUFF INHALATION (19:36)
[2024-08-30] MEDS: SACUBITRIL/VALSARTAN 97-103 MG TABLET 1 TAB PO (21:07)
[2024-08-30] MEDS: amLODIPine BESYLATE 10 MG TABLET PO (21:07)
[2024-08-30] MEDS: ASPIRIN 81 MG ENTERIC TABLET PO (21:07)
[2024-08-31] VITALS (10 sets, daily range): BP systolic 118–162; BP diastolic 75–85; PULSE 53–715; RESP 12–18; TEMP 36.6–36.8; O2SAT 98–99
[2024-08-31 06:17] LABS: Alanine Aminotransferase 29 U/L (6-50); Albumin Level 3.5 g/dL (3.5-5.1); Alkaline Phosphatase 107 U/L (38-126); Anion Gap 9 mmol/L (4-12); Aspartate Amino Transferase 31 U/L (17-59); Bilirubin,Total 0.8 mg/dL (0.2-1.3); Blood Urea Nitrogen 27 mg/dL (9-20); Carbon Dioxide 29 mmol/L (22-30); Chloride 103 mmol/L (98-107); Estimated CRCL calculation 75 ml/min; Estimated Glomerular Filt Rate > 60; Glucose 101 mg/dL (65-110); Magnesium 1.9 mg/dL (1.6-2.3); Potassium 3.6 mmol/L (3.4-5.0); Sodium 141 mmol/L (137-145)
[2024-08-31 06:27] LABS: Basophils Absolute Auto 0.1 K/mm3 (0.0-0.1); Eosinophils Absolute Auto 0.2 K/mm3 (0-0.3); Hematocrit 40.8 % (42.0-52.0); Hemoglobin 13.6 g/dL (14.0-18.0); Immature Granulocyte Absolute 0.04 K/mm3 (0.00-0.031); Immature Granulocyte Percent A 0.4 % (0-0.5); Lymphocytes Absolute Auto 1.73 K/mm3 (0.9-3.2); Lymphocytes Percent Auto 17.1 % (18.3-44.2); Mean Corpuscular HGB Conc 33.3 g/dl (32-36); Mean Corpuscular Hemoglobin 28.4 pg (26-34); Mean Corpuscular Volume 85.2 fl (80-100); Monocytes Absolute Auto 0.9 K/mm3 (0.1-0.6); Monocytes Percent Auto 8.6 % (2.6-8.5); Neutrophils Absolute Auto 7.2 K/mm3 (1.3-6.7); Neutrophils Percent Auto 70.9 % (45.5-73.1); Platelet Count Result 331 k/mm3 (150-375); Red Blood Count 4.79 M/mm3 (4.6-6.20); Red Cell Distribution Width 13.6 % (11.5-14.5); White Blood Count 10.1 K/mm3 (4.5-10.0)
[2024-08-31] MEDS: METOPROLOL SUCCINATE EXT REL 50 MG TABCR PO (09:36)
[2024-08-31] MEDS: CHOLECALCIFEROL 1,000 UNITS TABLET 2000 UNITS PO (09:36)
[2024-08-31] MEDS: SPIRONOLACTONE 25 MG TABLET PO (09:36)
[2024-08-31] MEDS: ATORVASTATIN 40 MG TABLET 80 MG PO (09:36)
[2024-08-31] MEDS: FUROSEMIDE 40 MG TABLET PO (09:37)
[2024-08-31] MEDS: TRIAMCINOLONE ACET 0.1% CREAM 15 GM TUBE 1 APPLIC TOPICAL ×2 (09:37→17:08)
[2024-08-31] MEDS: EMPAGLIFLOZIN 10 MG TABLET PO (09:37)
[2024-08-31] MEDS: ESCITALOPRAM OXALATE 10 MG TABLET PO (09:37)
[2024-08-31] MEDS: CLOPIDOGREL BISULFATE 75 MG TABLET PO (09:37)
[2024-08-31] MEDS: PANTOPRAZOLE 40 MG TABLET PO ×2 (09:37→20:29)
[2024-08-31] MEDS: ISOSORBIDE MONONITRATE 30 MG TAB.ER.24H PO (09:37)
--- NOTE | 2024-08-31 11:37 | PM.DS ---
DS: Admitting Diagnosis Discharge Date 08/31/24 Admitting Diagnosis New stutter and right arm tremors, history of strokes and seizures. DS: Discharge Diagnosis Discharge Diagnosis (1) Recent cerebrovascular accident: Code(s): Z86.73 - Personal history of transient ischemic attack (TIA), and cerebral infarction without residual deficits Status: Acute (2) Alteration in speech: Code(s): R47.89 - Other speech disturbances Status: Acute (3) Hypokalemia: Code(s): E87.6 - Hypokalemia Status: Acute (4) Generalized weakness: Code(s): R53.1 - Weakness Status: Acute (5) Confusion: Code(s): R41.0 - Disorientation, unspecified Status: Acute (6) Heart failure with preserved ejection fraction: Code(s): I50.30 - Unspecified diastolic (congestive) heart failure Status: Acute (7) Hypertension: Code(s): I10 - Essential (primary) hypertension Status: Acute (8) Depression: Qualifiers: Depression Type: unspecified Qualified Code(s): F32.A - Depression, unspecified Code(s): F32.A - Depression, unspecified Status: Acute (9) Obstructive sleep apnea of adult: Code(s): G47.33 - Obstructive sleep apnea (adult) (pediatric) Status: Acute DS: Summary Hospital Course Hospital Course: In the ED: Vital signs were stable on arrival. Labs are significant for WBC count of 11.3, potassium 3.3, BUN 25, troponin 0.035. Urinalysis was positive for 3+ glucose. Respiratory panel was negative. CT of the head and neck showed 0% stenosis of the bilateral internal carotid arteries, unremarkable cerebral CT with no evidence of thrombosis for hemodynamically significant stenosis or aneurysm, involving now subacute infarcts in the left frontal and parietal lobes. Patient received PT/OT/ST. Neurology consulted adding Keppra 500 mg PO q 12. Return back to [facility] for rehab. Status at Discharge Functional status at discharge: uses cane/walker Overall status at discharge: patient is not back to baseline Time Spent with Patient Time attestation: Total time spent providing and/or coordinating discharge services: Time spent: Greater than 30 minutes Exam Const: General: comfortable and no acute distress Resp: Effort & Inspection: normal respiratory effort Auscultation: clear to auscultation bilaterally Cardio: Rate: regular rate Rhythm: regular rhythm Other: Telemetry-SR 60. GI: GI Palp: Yes Soft to palpation Auscultation: normal bowel sounds Neuro: Other: Speech difficulties at times getting words out. Extrem: General: no pedal edema Psych: Other: Calm and cooperative. DS: Data Data Completed and Pending Labs on day of discharge: Labs from last 24 hours 08/31/24 05:33 WBC 10.1 H RBC 4.79 Hgb 13.6 L Hct 40.8 L MCV 85.2 MCH 28.4 MCHC 33.3 RDW 13.6 Plt Count 331 MPV 12.0 H Immature Gran % (Auto) 0.4 Neut % (Auto) 70.9 Lymph % (Auto) 17.1 L [place] % (Auto) 8.6 H Eos % (Auto) 2.0 Baso % (Auto) 1.0 Lymph # (Auto) 1.73 [place] # (Auto) 0.9 H Eos # (Auto) 0.2 Baso # (Auto) 0.1 Abs Immat Gran (auto) 0.04 H Absolute Neuts (auto) 7.2 H Absolute Nucleated RBC 0.000 Nucleated RBC % 0.0 Sodium 141 Potassium 3.6 Chloride 103 Carbon Dioxide 29 Anion Gap 9 BUN 27 H Creatinine 0.89 Estim Creat Clear Calc 75 Estimated GFR > 60 Glucose 101 Calcium 9.0 Magnesium 1.9 Total Bilirubin 0.8 AST 31 ALT 29 Alkaline Phosphatase 107 Total Protein 7.0 Albumin 3.5 Discharge Plan Discharge Attending physician on discharge: Familia Montes Consulting providers: David Melvin Discharging Clinician: Shruti Townsend Anticipated Discharge Date/Time: 08/31/24 14:00 Patient Disposition: SNF Activity: may shower and as tolerated Diet: heart healthy Discharge Instructions: PT/OT/ST at [facility]F. Take medications as prescribed. Wear CPAP at night. Thank you for entrusting [facility] with your healthcare! Patient Instructions: Levetiracetam (By mouth), Escitalopram (By mouth), How to Stop Smoking (DC), Hypertension (DC), Stroke (DC) Patient Language: Maltese Stand Alone Forms: General Discharge Information Follow-up/Referrals: David Melvni MD [Physician] - 2 Weeks Discharge Medications: New escitalopram oxalate 10 mg Tablet 10 mg PO DAILY Qty: 30 0RF levetiracetam 500 mg tablet 500 mg PO BID Qty: 60 0RF Continued albuterol 90 mcg/actuation aerosol 90 mcg inhalation Q6H PRN (Reason: COPD Breathing) Rx Instructions: Take 2 puffs by oral inhalation four times a day as needed for COPD breathing albuterol sulfate 2.5 mg /3 mL (0.083 %) solution for nebulization 2.5 mg inhalation Q6H PRN (Reason: shortness of breath) Rx Instructions: Inhale 1 vial (2.5mg/3ml) by nebulization every 6 hours as needed for breathing amlodipine [Norvasc] 10 mg tablet 10 mg PO HS aspirin [Adult Aspirin Regimen] 81 mg tablet,delayed release (DR/EC) 81 mg PO HS cholecalciferol (vitamin D3) 50 mcg (2,000 unit) capsule 2,000 unit PO DAILY Eucerin Cream 1 applic topical DAILY PRN (Reason: dry skin) Rx Instructions: Apply liberally to affected area once a day for moisturizer nicotine (polacrilex) [Nicorette] 4 mg mini lozenge 4 mg buccal Q4H PRN (Reason: nicotine cravings) omeprazole 40 mg capsule,delayed release(DR/EC) 40 mg PO HS sacubitril-valsartan [Entresto] 97-103 mg tablet 1 tablet PO HS spironolactone 25 mg tablet 25 mg PO DAILY Spiriva Respimat 2.5 mcg/actuation mist 2 inh inhalation HS furosemide 40 mg Tablet 40 mg PO DAILY Qty: 60 0RF atorvastatin 40 mg Tablet 80 mg PO DAILY Qty: 60 0RF metoprolol succinate 50 mg Tablet Extended Release 24 Hr 50 mg PO QAM Qty: 60 0RF isosorbide mononitrate 30 mg Tablet Extended Release 24 Hr 30 mg PO QAM Qty: 60 0RF clopidogrel 75 mg Tablet 75 mg PO QAM Qty: 60 0RF Jardiance 10 mg Tablet 10 mg PO DAILY Qty: 60 0RF melatonin 5 mg capsule 5 mg PO HS PRN (Reason: insomnia) dicyclomine 20 mg tablet 20 mg PO QID PRN (Reason: abdominal pain) ondansetron 4 mg tablet,disintegrating 4 mg PO Q6H PRN (Reason: nausea and vomiting) Discontinued naloxone [Narcan] 4 mg/actuation spray,non-aerosol 4 mg intranasal Q3M PRN (Reason: opioid overdose) Rx Instructions: spray 1 dose into ONE nostril; alternate nostrils w each dose until help arrives triamcinolone acetonide 0.1 % cream 1 applic topical HS Rx Instructions: Apply thin layer to affected area on abdomen twice a day until resolved Date of admission: 08/27/24 16:48 Primary Care Provider: PHYSICIAN NOT ON STAFF,NONSTAFF Admitting Provider: Yasmine Noe Attending physician on admission: Yasmine Noe Condition: Stable Hospitalist MIPS Heart Failure (Exclusion) Patient has history of Heart Transplant or Left Ventricular Assistive Device?: No IF YES, STOP HERE Heart Failure (Qualifier) Patient has current or prior documentation of LVEF less than or equal to 40%, or mod/servere depressed LVSF?: No IF NO, STOP HERE
[2024-08-31] MEDS: UMECLIDINIUM BROMIDE 62.5 MCG ELLIPTA 1 PUFF INHALATION (11:51)
--- NOTE | 2024-08-31 15:20 | PCPTNOTE ---
On 08/31/24, the student, FAHEEM Rader, provided care and completed [facility] documentation on this patient. I have reviewed the student's documentation and agree with the findings.
--- NOTE | 2024-08-31 16:35 | PC.NURSE ---
Report given to DEBI Yeboah at [facility] and she had no further questions.
--- NOTE | 2024-08-31 19:46 | PC.NURSE ---
RN assessed pts HR at 1603 and his HR was 76
[2024-08-31] MEDS: ASPIRIN 81 MG ENTERIC TABLET PO (20:28)
[2024-08-31] MEDS: amLODIPine BESYLATE 10 MG TABLET PO (20:29)
[2024-08-31] MEDS: SACUBITRIL/VALSARTAN 97-103 MG TABLET 1 TAB PO (20:29)
[2024-09-01] VITALS: PULSE 60
[2024-09-01 04:00] VITALS: PULSE 60
[2024-09-01 05:31] VITALS: BP 133/93; PULSE 62; RESP 18; TEMP 36.1; O2SAT 96
[2024-09-01 07:55] LABS: Basophils Absolute Auto 0.1 K/mm3 (0.0-0.1); Basophils Percent Auto 1.1 % (0.2-1.2); Eosinophils Absolute Auto 0.2 K/mm3 (0-0.3); Eosinophils Percent Auto 2.2 % (0-4.4); Hematocrit 42.5 % (42.0-52.0); Hemoglobin 14.1 g/dL (14.0-18.0); Immature Granulocyte Absolute 0.03 K/mm3 (0.00-0.031); Immature Granulocyte Percent A 0.3 % (0-0.5); Lymphocytes Absolute Auto 1.65 K/mm3 (0.9-3.2); Lymphocytes Percent Auto 18.2 % (18.3-44.2); Mean Corpuscular HGB Conc 33.2 g/dl (32-36); Mean Corpuscular Hemoglobin 28.1 pg (26-34); Mean Corpuscular Volume 84.7 fl (80-100); Mean Platelet Volume 11.8 fl (7.4-10.4); Monocytes Absolute Auto 0.8 K/mm3 (0.1-0.6); Monocytes Percent Auto 9.2 % (2.6-8.5); Neutrophils Absolute Auto 6.3 K/mm3 (1.3-6.7); Platelet Count Result 328 k/mm3 (150-375); Red Blood Count 5.02 M/mm3 (4.6-6.20); Red Cell Distribution Width 13.7 % (11.5-14.5); White Blood Count 9.1 K/mm3 (4.5-10.0)
[2024-09-01 08:01] VITALS: PULSE 47
[2024-09-01 08:08] LABS: Alanine Aminotransferase 29 U/L (6-50); Albumin Level 3.7 g/dL (3.5-5.1); Alkaline Phosphatase 117 U/L (38-126); Anion Gap 10 mmol/L (4-12); Aspartate Amino Transferase 30 U/L (17-59); Bilirubin,Total 0.9 mg/dL (0.2-1.3); Blood Urea Nitrogen 25 mg/dL (9-20); Calcium 9.3 mg/dL (8.4-10.2); Carbon Dioxide 29 mmol/L (22-30); Chloride 103 mmol/L (98-107); Estimated CRCL calculation 84 ml/min; Estimated Glomerular Filt Rate > 60; Glucose 90 mg/dL (65-110); Potassium 3.4 mmol/L (3.4-5.0); Sodium 142 mmol/L (137-145)
--- NOTE | 2024-09-01 09:45 | P.DS_ITS ---
DS: Admitting Diagnosis Discharge Date 09/01/24 Admitting Diagnosis New stutter and right arm tremors, history of strokes and seizures. DS: Discharge Diagnosis Discharge Diagnosis (1) Recent cerebrovascular accident: Code(s): Z86.73 - Personal history of transient ischemic attack (TIA), and cerebral infarction without residual deficits Status: Acute (2) Alteration in speech: Code(s): R47.89 - Other speech disturbances Status: Acute (3) Hypokalemia: Code(s): E87.6 - Hypokalemia Status: Acute (4) Generalized weakness: Code(s): R53.1 - Weakness Status: Acute (5) Heart failure with preserved ejection fraction: Code(s): I50.30 - Unspecified diastolic (congestive) heart failure Status: Acute (6) Hypertension: Code(s): I10 - Essential (primary) hypertension Status: Acute (7) Depression: Qualifiers: Depression Type: unspecified Qualified Code(s): F32.A - Depression, unspecified Code(s): F32.A - Depression, unspecified Status: Acute (8) Obstructive sleep apnea of adult: Code(s): G47.33 - Obstructive sleep apnea (adult) (pediatric) Status: Acute DS: Summary Hospital Course Hospital Course: In the ED: Vital signs were stable on arrival. Labs are significant for WBC count of 11.3, potassium 3.3, BUN 25, troponin 0.035. Urinalysis was positive for 3+ glucose. Respiratory panel was negative. CT of the head and neck showed 0% stenosis of the bilateral internal carotid arteries, unremarkable cerebral CT with no evidence of thrombosis for hemodynamically significant stenosis or aneurysm, involving now subacute infarcts in the left frontal and parietal lobes. Patient received PT/OT/ST. Neurology consulted adding Keppra 500 mg PO q 12. Return back to [facility] for rehab. Status at Discharge Functional status at discharge: uses cane/walker Overall status at discharge: patient is not back to baseline Time Spent with Patient Time attestation: Total time spent providing and/or coordinating discharge services: Time spent: Greater than 30 minutes Exam Const: General: comfortable and no acute distress Resp: Effort & Inspection: normal respiratory effort Auscultation: clear to auscultation bilaterally Cardio: Rate: regular rate Rhythm: regular rhythm GI: GI Palp: Yes Soft to palpation Auscultation: normal bowel sounds Neuro: Other: Speech difficulties at times getting words out. Extrem: General: no pedal edema Psych: Other: Calm and cooperative. DS: Data Data Completed and Pending Labs on day of discharge: Labs from last 24 hours 09/01/24 06:40 WBC 9.1 RBC 5.02 Hgb 14.1 Hct 42.5 MCV 84.7 MCH 28.1 MCHC 33.2 RDW 13.7 Plt Count 328 MPV 11.8 H Immature Gran % (Auto) 0.3 Neut % (Auto) 69.0 Lymph % (Auto) 18.2 L [place] % (Auto) 9.2 H Eos % (Auto) 2.2 Baso % (Auto) 1.1 Lymph # (Auto) 1.65 [place] # (Auto) 0.8 H Eos # (Auto) 0.2 Baso # (Auto) 0.1 Abs Immat Gran (auto) 0.03 Absolute Neuts (auto) 6.3 Absolute Nucleated RBC 0.000 Nucleated RBC % 0.0 Sodium 142 Potassium 3.4 Chloride 103 Carbon Dioxide 29 Anion Gap 10 BUN 25 H Creatinine 0.79 Estim Creat Clear Calc 84 Estimated GFR > 60 Glucose 90 Calcium 9.3 Magnesium 2.0 Total Bilirubin 0.9 AST 30 ALT 29 Alkaline Phosphatase 117 Total Protein 7.0 Albumin 3.7 Discharge Plan Discharge Attending physician on discharge: Familia Montes Consulting providers: David Melvin Discharging Clinician: Shruti Townsend Anticipated Discharge Date/Time: 09/01/24 10:00 Patient Disposition: SNF Activity: may shower and as tolerated Diet: heart healthy Discharge Instructions: * PT/OT/ST at [facility]. * Take medications as prescribed. * Wear CPAP at night. Thank you for entrusting [facility] with your healthcare! Patient Instructions: Levetiracetam (By mouth), Escitalopram (By mouth), How to Stop Smoking (DC), Hypertension (DC), Stroke (DC) Patient Language: Cymro Stand Alone Forms: General Discharge Information Follow-up/Referrals: David Melvin MD [Physician] - 2 Weeks Discharge Medications: New escitalopram oxalate 10 mg Tablet 10 mg PO DAILY Qty: 30 0RF levetiracetam 500 mg tablet 500 mg PO BID Qty: 60 0RF Continued albuterol 90 mcg/actuation aerosol 90 mcg inhalation Q6H PRN (Reason: COPD Breathing) Rx Instructions: Take 2 puffs by oral inhalation four times a day as needed for COPD breathing albuterol sulfate 2.5 mg /3 mL (0.083 %) solution for nebulization 2.5 mg inhalation Q6H PRN (Reason: shortness of breath) Rx Instructions: Inhale 1 vial (2.5mg/3ml) by nebulization every 6 hours as needed for breathing amlodipine [Norvasc] 10 mg tablet 10 mg PO HS aspirin [Adult Aspirin Regimen] 81 mg tablet,delayed release (DR/EC) 81 mg PO HS cholecalciferol (vitamin D3) 50 mcg (2,000 unit) capsule 2,000 unit PO DAILY Eucerin Cream 1 applic topical DAILY PRN (Reason: dry skin) Rx Instructions: Apply liberally to affected area once a day for moisturizer nicotine (polacrilex) [Nicorette] 4 mg mini lozenge 4 mg buccal Q4H PRN (Reason: nicotine cravings) omeprazole 40 mg capsule,delayed release(DR/EC) 40 mg PO HS sacubitril-valsartan [Entresto] 97-103 mg tablet 1 tablet PO HS spironolactone 25 mg tablet 25 mg PO DAILY Spiriva Respimat 2.5 mcg/actuation mist 2 inh inhalation HS furosemide 40 mg Tablet 40 mg PO DAILY Qty: 60 0RF atorvastatin 40 mg Tablet 80 mg PO DAILY Qty: 60 0RF metoprolol succinate 50 mg Tablet Extended Release 24 Hr 50 mg PO QAM Qty: 60 0RF isosorbide mononitrate 30 mg Tablet Extended Release 24 Hr 30 mg PO QAM Qty: 60 0RF clopidogrel 75 mg Tablet 75 mg PO QAM Qty: 60 0RF Jardiance 10 mg Tablet 10 mg PO DAILY Qty: 60 0RF melatonin 5 mg capsule 5 mg PO HS PRN (Reason: insomnia) dicyclomine 20 mg tablet 20 mg PO QID PRN (Reason: abdominal pain) ondansetron 4 mg tablet,disintegrating 4 mg PO Q6H PRN (Reason: nausea and vomiting) Discontinued naloxone [Narcan] 4 mg/actuation spray,non-aerosol 4 mg intranasal Q3M PRN (Reason: opioid overdose) Rx Instructions: spray 1 dose into ONE nostril; alternate nostrils w each dose until help arrives triamcinolone acetonide 0.1 % cream 1 applic topical HS Rx Instructions: Apply thin layer to affected area on abdomen twice a day until resolved Date of admission: 08/27/24 16:48 Primary Care Provider: PHYSICIAN NOT ON STAFF,NONSTAFF Admitting Provider: Yasmine Noe Attending physician on admission: Yasmine Noe Condition: Stable Hospitalist MIPS Heart Failure (Exclusion) Patient has history of Heart Transplant or Left Ventricular Assistive Device?: No IF YES, STOP HERE Heart Failure (Qualifier) Patient has current or prior documentation of LVEF less than or equal to 40%, or mod/servere depressed LVSF?: No IF NO, STOP HERE
== END 2024-09-01 10:45 | DRG 65 ==
LOC: ANHED 14:01 → ANH3MEDSUR 18:14
PROVIDERS: Physician Assistant; Admitting Provider Internal Medicine; Emergency Provider Student in an Organized Health Care Education/Training Program; Visit Provider Nurse Practitioner Family
DX: I63.9 Cerebral infarction, unspecified (principal); I50.32 Chronic diastolic (congestive) heart failure; R47.89 Other speech disturbances; I11.0 Hypertensive heart disease with heart failure; I25.10 Atherosclerotic heart disease of native coronary artery without angina pectoris; E87.6 Hypokalemia; J44.9 Chronic obstructive pulmonary disease, unspecified; G47.33 Obstructive sleep apnea (adult) (pediatric); F32.A Depression, unspecified; Z20.822 Contact with and (suspected) exposure to COVID-19; Z87.891 Personal history of nicotine dependence; Z79.82 Long term (current) use of aspirin; Z86.73 Personal history of transient ischemic attack (TIA), and cerebral infarction without residual deficits
CPT/HCPCS: 36415; 70496; 70498; 71045; 80048; 80053; 80307; 81003; 82140; 82565; 82607; 82948; 83036; 83735; 84443; 84484; 85025; 85027; 85610; 85730; 87637; 92507; 92523; 93005; 94640; 96360; 97110; 97116; 97162; 97166; 97530; 97535; 99285; A9270; J7120; Q9967